=== PATIENT | female | born 1950 | race Caucasian/White ===

== ENCOUNTER 2019-09-23 00:36 | Day surgery (SDC) | payer MEDICARE, SELFPAY ==
[2019-09-22 11:16] VITALS: BMI 17.8
--- NOTE | 2019-09-23 07:45 | P.HP_ITS ---
History of Present Illness History of Present Illness Consent: Risks, benefits, and alternatives have been discussed and questions answered. Patient agrees to proceed with procedure. Chief complaint: esophageal strictures Narrative: Amada Lemus is a 68 year old female with severe dysphagia. She has a chronic and recurrent esophageal stricture. Meds Home Medications and Allergies Home Medications Medication Instructions Recorded Confirmed Type aspirin [Aspirin Low Dose] 81 mg PO DAILY 09/22/19 09/22/19 History calcium carbonate [Calcium 500] 500 mg PO DAILY 09/22/19 09/22/19 History cyanocobalamin (vitamin B-12) 1,000 mcg PO DAILY 09/22/19 09/22/19 History [Vitamin B-12] ferrous sulfate [Iron (ferrous 325 mg PO DAILY 09/22/19 09/22/19 History sulfate)] lactobacillus combination no.4 3,000 mmu cells PO DAILY 09/22/19 09/22/19 History [Probiotic] multivitamin 1 cap PO DAILY 09/22/19 09/22/19 History omega 6-pek-eqg-fish oil [[place]-3] 1 cap PO DAILY 09/22/19 09/22/19 History rosuvastatin 20 mg PO DAILY 09/22/19 09/22/19 History Allergies Allergy/AdvReac Type Severity Reaction Status Date / Time Penicillins Allergy Intermediate hallucinati Verified 09/22/19 11:12 ons Exam Const: General: alert Orientation/consciousness: patient oriented x3 Resp: Auscultation: clear to auscultation bilaterally Cardio: Rhythm: regular rhythm GI: GI Palp: Yes Soft to palpation and No Tenderness to palpation present (GI) Neuro: General: patient oriented x3 Assessment and Plan Assessment and plan (1) Dysphagia: Code(s): R13.10 - Dysphagia, unspecified Status: Acute Assessment and Plan: EGD with possible biopsy or dilatation or cautery.
[2019-09-23 07:52] VITALS: BP 133/67; PULSE 85; RESP 16; TEMP 36.9; O2SAT 99; BMI 16.2
[2019-09-23] MEDS: LACTATED RINGERS 1,000 ML 150 ML IV CONT (08:08)
--- NOTE | 2019-09-23 08:10 | P.PNAN_ITS ---
Anes - Initial Pre Proc Eval Procedure: Operation Date: 09/23/19 08:30 Proposed Procedures p Esophagogastroduodenoscopy - Neftali Mackey MD Date/Time: 09/23/19 08:10 Surgeon: Neftali Mackey MD Pre Op Diagnosis: esophageal strictures Patient Data Age: 68 Gender: F Height: 5 ft 6 in Weight: 45.6 kg Last Vital Signs Temp 98.4 F 09/23/19 07:52 Pulse 85 09/23/19 07:52 Resp 16 09/23/19 07:52 BP 133/67 09/23/19 07:52 Pulse Ox 99 09/23/19 07:52 Allergies Allergy/AdvReac Type Severity Reaction Status Date / Time Penicillins Allergy Intermediate hallucinati Verified 09/23/19 07:49 ons Home Medications Medication Instructions Recorded Confirmed Type aspirin [Aspirin Low Dose] 81 mg PO DAILY 09/22/19 09/22/19 History calcium carbonate [Calcium 500] 500 mg PO DAILY 09/22/19 09/22/19 History cyanocobalamin (vitamin B-12) 1,000 mcg PO DAILY 09/22/19 09/22/19 History [Vitamin B-12] ferrous sulfate [Iron (ferrous 325 mg PO DAILY 09/22/19 09/22/19 History sulfate)] lactobacillus combination no.4 3,000 mmu cells PO DAILY 09/22/19 09/22/19 History [Probiotic] multivitamin 1 cap PO DAILY 09/22/19 09/22/19 History omega 7-huf-jmk-fish oil [[place]-3] 1 cap PO DAILY 09/22/19 09/22/19 History rosuvastatin 20 mg PO DAILY 09/22/19 09/22/19 History Patient hx anesthesia problems: none Family hx anesthesia problems: none [facility] Past Medical History Medical History (Updated 09/23/19 @ 08:10 by Vickey Rico MD) COPD (chronic obstructive pulmonary disease) Peripheral vascular disease Anes - Eval Final PreProcedure Day of Procedure 09/23/19 08:10 Patient weight: normal Heart: regular rate and rhythm Lungs: clear to auscultation Airway: Mallampati scale class II Neurological: alert and oriented Last oral intake: >/= 8 hours ASA classification: III Emergent: no Anesthetic plan: proceed Anesthesia type and monitoring: general GIVS and standard monitoring Informed Consent: The patient's anesthetic plan and its attendant risks and benefits were discussed with the patient/family/POA. Questions were solicited and answers provided to the satisfaction of the patient/family/POA.
[2019-09-23 08:27] VITALS: BP 105/54; PULSE 88; RESP 27; O2SAT 93
[2019-09-23 08:37] VITALS: BP 114/56; PULSE 86; RESP 18; O2SAT 94
[2019-09-23 08:47] VITALS: BP 126/68; PULSE 77; RESP 17; O2SAT 98
== END 2019-09-23 08:58 | disposition home or self-care (01) ==
PROVIDERS: PCP Internal Medicine; Visit Provider Internal Medicine Gastroenterology
PROC: 0DJ08ZZ Inspection of Upper Intestinal Tract, Via Natural or Artificial Opening Endoscopic (ICD-10-PCS; CPT 43235; principal; 2019-09-23 08:30)
DX: K22.2 Esophageal obstruction (principal); J44.9 Chronic obstructive pulmonary disease, unspecified; I49.3 Ventricular premature depolarization; Z79.82 Long term (current) use of aspirin
CPT/HCPCS: 43220; C1726; J2704; J7120

== ENCOUNTER 2021-04-27 01:58 | Day surgery (SDC) | payer MEDICARE, SELFPAY ==
[2021-04-17 15:37] VITALS: BMI 16.2
--- NOTE | 2021-04-26 20:15 | P.HP_ITS ---
History of Present Illness History of Present Illness Consent: Risks, benefits, and alternatives have been discussed and questions answered. Patient agrees to proceed with procedure. Chief complaint: esophageal stricture Narrative: Amada Lemus is a 70 year old female referred for treatment of an esophageal stricture . She has a high-grade severe chronic stricture in the proximal esophagus secondary to radiation that was done long ago. Review of Systems Review of Systems: All systems reviewed & are unremarkable except as noted in HPI and below PMFSH Past Medical History Medical History COPD (chronic obstructive pulmonary disease) Hyperlipidemia Peripheral vascular disease Surgical History Surgical History History of esophagogastroduodenoscopy (EGD) S/P femoral-popliteal bypass surgery Social History Social History Smoking packs per day: 0.5 Smoking cigarettes per day: 10.0 Years smoked: 50 Smoking pack-years: 25.00 Smoking status: Former smoker Tobacco type: cigarettes Alcohol intake: never Substance use: never Substance use type: does not use Living arrangements: alone Spiritual care concerns: No Meds Home Medications and Allergies Home Medications Medication Instructions Recorded Confirmed Type [place]-3 1 cap PO DAILY 09/22/19 04/27/21 History Probiotic 3,000 mmu cells PO DAILY 09/22/19 04/27/21 History aspirin [Aspirin Low Dose] 81 mg PO DAILY 09/22/19 04/27/21 History calcium carbonate [Calcium 500] 500 mg PO DAILY 09/22/19 04/27/21 History cyanocobalamin (vitamin B-12) 1,000 mcg PO DAILY 09/22/19 04/27/21 History [Vitamin B-12] ferrous sulfate [Iron (ferrous 325 mg PO DAILY 09/22/19 04/27/21 History sulfate)] multivitamin 1 cap PO DAILY 09/22/19 04/27/21 History rosuvastatin 20 mg PO DAILY 09/22/19 04/27/21 History Allergies Allergy/AdvReac Type Severity Reaction Status Date / Time Penicillins Allergy Intermediate hallucinati Verified 04/27/21 09:30 ons Exam Const: General: alert Orientation/consciousness: patient oriented x3 Resp: Auscultation: clear to auscultation bilaterally Cardio: Rhythm: regular rhythm GI: GI Palp: Yes Soft to palpation and No Tenderness to palpation present (GI) Neuro: General: patient oriented x3 Assessment and Plan Assessment and plan (1) Dysphagia: Code(s): R13.10 - Dysphagia, unspecified Status: Acute Assessment and Plan: EGD with possible biopsy or dilatation or cautery.
[2021-04-27 09:31] VITALS: BP 154/87; PULSE 90; RESP 18; TEMP 36.9; O2SAT 98; BMI 16.8
--- NOTE | 2021-04-27 09:36 | P.PNAN_ITS ---
Anes - Initial Pre Proc Eval Procedure: Operation Date: 04/27/21 12:30 Proposed Procedures p Esophagogastroduodenoscopy - Neftali Mackey MD Date/Time: 04/27/21 09:36 Surgeon: Neftali Mackey MD Pre Op Diagnosis: esophageal stricture Patient Data Age: 70 Gender: F Height: 1.68 m Weight: 47.3 kg Last Vital Signs Temp 36.9 C 04/27/21 09:31 Pulse 90 04/27/21 09:31 Resp 18 04/27/21 09:31 BP 154/87 H 04/27/21 09:31 Pulse Ox 98 04/27/21 09:31 Allergies Allergy/AdvReac Type Severity Reaction Status Date / Time Penicillins Allergy Intermediate hallucinati Verified 04/27/21 09:30 ons Home Medications Medication Instructions Recorded Confirmed Type [place]-3 1 cap PO DAILY 09/22/19 04/27/21 History Probiotic 3,000 mmu cells PO DAILY 09/22/19 04/27/21 History aspirin [Aspirin Low Dose] 81 mg PO DAILY 09/22/19 04/27/21 History calcium carbonate [Calcium 500] 500 mg PO DAILY 09/22/19 04/27/21 History cyanocobalamin (vitamin B-12) 1,000 mcg PO DAILY 09/22/19 04/27/21 History [Vitamin B-12] ferrous sulfate [Iron (ferrous 325 mg PO DAILY 09/22/19 04/27/21 History sulfate)] multivitamin 1 cap PO DAILY 09/22/19 04/27/21 History rosuvastatin 20 mg PO DAILY 09/22/19 04/27/21 History Patient hx anesthesia problems: none Family hx anesthesia problems: none Results Review: All pre-operative results and documents have been reviewed as part of the pre-operative evaluation. [facility] Past Medical History Medical History (Updated 04/27/21 @ 09:37 by Suleman Diez MD) COPD (chronic obstructive pulmonary disease) Hyperlipidemia Peripheral vascular disease Surgical History Surgical History (Updated 04/27/21 @ 09:38 by Suleman Diez MD) History of esophagogastroduodenoscopy (EGD) S/P femoral-popliteal bypass surgery Social History Social History Smoking packs per day: 0.5 Smoking cigarettes per day: 10.0 Years smoked: 50 Smoking pack-years: 25.00 Smoking status: Former smoker Tobacco type: cigarettes Alcohol intake: never Substance use: never Substance use type: does not use Living arrangements: alone Spiritual care concerns: No Anes - Eval Final PreProcedure Day of Procedure 04/27/21 09:36 Patient weight: thin Heart: regular rate and rhythm Lungs: clear to auscultation Airway: Mallampati scale class II Neurological: alert and oriented Last oral intake: >/= 8 hours ASA classification: III Emergent: no Anesthetic plan: proceed Anesthesia type and monitoring: general GIVS and standard monitoring Results Review: All pre-operative results and documents have been reviewed as part of the pre-operative evaluation. Informed Consent: The patient's anesthetic plan and its attendant risks and benefits were discussed with the patient/family/POA. Questions were solicited and answers provided to the satisfaction of the patient/family/POA.
[2021-04-27] MEDS: LACTATED RINGERS 1,000 ML 150 ML IV CONT (09:39)
[2021-04-27 10:04] VITALS: BP 144/87; PULSE 58; RESP 15; O2SAT 97
[2021-04-27 10:14] VITALS: BP 146/88; PULSE 57; RESP 16; O2SAT 98
[2021-04-27 10:24] VITALS: BP 148/86; PULSE 53; RESP 19; O2SAT 99
== END 2021-04-27 10:38 | disposition home or self-care (01) ==
PROVIDERS: PCP Internal Medicine; Visit Provider Internal Medicine Gastroenterology
PROC: 0DJ08ZZ Inspection of Upper Intestinal Tract, Via Natural or Artificial Opening Endoscopic (ICD-10-PCS; CPT 43235; principal; 2021-04-27 12:30)
DX: R13.10 Dysphagia, unspecified (principal); K22.2 Esophageal obstruction; K22.5 Diverticulum of esophagus, acquired; J44.9 Chronic obstructive pulmonary disease, unspecified; I73.9 Peripheral vascular disease, unspecified; E78.5 Hyperlipidemia, unspecified; Z92.3 Personal history of irradiation
CPT/HCPCS: 43220; C1726; J2001; J2704; J7120

== ENCOUNTER 2022-03-07 01:06 | Day surgery (SDC) | payer MEDICARE, SELFPAY ==
[2022-02-27 13:04] VITALS: BMI 16.3
--- NOTE | 2022-03-07 06:40 | PM.HPGS ---
History of Present Illness History of Present Illness Consent: Risks, benefits, and alternatives have been discussed and questions answered. Patient agrees to proceed with procedure. Chief complaint: dysphagia Narrative: Amada Lemus is a 71 year old female With severe dysphagia. She has known have a long stricture in the proximal esophagus that is secondary to radiation therapy many years ago. The last treatment she had was 11 months ago. At that time we were only able to dilate up to 9 mm. We advised her to come back in a couple of months for for further treatment but she was unable to do that. Review of Systems Review of Systems: All systems reviewed & are unremarkable except as noted in HPI and below PMFSH Past Medical History Medical History COPD (chronic obstructive pulmonary disease) Hyperlipidemia Peripheral vascular disease Surgical History Surgical History History of esophagogastroduodenoscopy (EGD) S/P femoral-popliteal bypass surgery Social History Social History Smoking packs per day: 1 Smoking cigarettes per day: 20.0 Years smoked: 40 Smoking pack-years: 40.00 Smoking status: Former smoker Tobacco type: cigarettes Alcohol intake: never Substance use: never Substance use type: does not use Living arrangements: alone Spiritual care concerns: No Meds Home Medications and Allergies Home Medications Medication Instructions Recorded Confirmed Type aspirin 81 mg tablet,delayed 81 mg PO DAILY 09/22/19 03/07/22 History release ([place]ory Low Dose Aspirin) calcium carbonate 500 mg calcium 500 mg PO DAILY 09/22/19 03/07/22 History (1,250 mg) chewable tablet (Calcium 500) cyanocobalamin (vitamin B-12) 1,000 mcg PO DAILY 09/22/19 03/07/22 History 1,000 mcg tablet,extended release (Vitamin B-12 ER) ferrous sulfate 325 mg (65 mg 325 mg PO DAILY 09/22/19 03/07/22 History iron) tablet (Iron (ferrous sulfate)) lactobacillus combination no.4 3 3,000 mmu cells PO DAILY 09/22/19 03/07/22 History billion cell capsule (Probiotic) omega 3 350 mg-dha 235 mg-epa 90 1 cap PO DAILY 09/22/19 03/07/22 History mg-fish oil 597 mg capsule,delay rel ([place]-3) rosuvastatin 20 mg tablet 20 mg PO DAILY 09/22/19 03/07/22 History Adult Multivitamin Gummies 2 gummy PO DAILY 02/27/22 03/07/22 History albuterol sulfate 90 mcg/actuation 2 puff inhalation DAILY 02/27/22 03/07/22 History aerosol inhaler Allergies Allergy/AdvReac Type Severity Reaction Status Date / Time Penicillins Allergy Intermediate hallucinati Verified 03/07/22 10:24 ons Exam Const: General: alert Orientation/consciousness: patient oriented x3 Resp: Auscultation: clear to auscultation bilaterally Cardio: Rhythm: regular rhythm GI: GI Palp: Yes Soft to palpation and No Tenderness to palpation present (GI) Neuro: General: patient oriented x3 Assessment and Plan Assessment and plan (1) Dysphagia: Code(s): R13.10 - Dysphagia, unspecified Status: Acute Assessment and Plan: EGD with possible biopsy or dilatation or cautery.
[2022-03-07 10:25] VITALS: BP 123/80; PULSE 93; RESP 16; TEMP 36.1; O2SAT 98
[2022-03-07] MEDS: LACTATED RINGERS 1,000 ML 150 ML IV CONT (10:27)
--- NOTE | 2022-03-07 11:07 | WPDANESEPPF ---
Anes - Initial Pre Proc Eval Procedure: Operation Date: 03/07/22 11:30 Proposed Procedures p Esophagogastroduodenoscopy - Neftali Mackey MD Date/Time: 03/07/22 11:07 Surgeon: Neftali Mackey MD Pre Op Diagnosis: dysphagia Patient Data Age: 71 Gender: F Height: 1.68 m Weight: 43.7 kg Last Vital Signs Temp 97 F L 03/07/22 10:25 Pulse 93 03/07/22 10:25 Resp 16 03/07/22 10:25 BP 123/80 03/07/22 10:25 Pulse Ox 98 03/07/22 10:25 O2 Del Method Room Air 03/07/22 10:25 Allergies Allergy/AdvReac Type Severity Reaction Status Date / Time Penicillins Allergy Intermediate hallucinati Verified 03/07/22 10:24 ons Home Medications Medication Instructions Recorded Confirmed Type aspirin 81 mg tablet,delayed 81 mg PO DAILY 09/22/19 03/07/22 History release ([place]ory Low Dose Aspirin) calcium carbonate 500 mg calcium 500 mg PO DAILY 09/22/19 03/07/22 History (1,250 mg) chewable tablet (Calcium 500) cyanocobalamin (vitamin B-12) 1,000 mcg PO DAILY 09/22/19 03/07/22 History 1,000 mcg tablet,extended release (Vitamin B-12 ER) ferrous sulfate 325 mg (65 mg 325 mg PO DAILY 09/22/19 03/07/22 History iron) tablet (Iron (ferrous sulfate)) lactobacillus combination no.4 3 3,000 mmu cells PO DAILY 09/22/19 03/07/22 History billion cell capsule (Probiotic) omega 3 350 mg-dha 235 mg-epa 90 1 cap PO DAILY 09/22/19 03/07/22 History mg-fish oil 597 mg capsule,delay rel ([place]-3) rosuvastatin 20 mg tablet 20 mg PO DAILY 09/22/19 03/07/22 History Adult Multivitamin Gummies 2 gummy PO DAILY 02/27/22 03/07/22 History albuterol sulfate 90 mcg/actuation 2 puff inhalation DAILY 02/27/22 03/07/22 History aerosol inhaler Patient hx anesthesia problems: none Family hx anesthesia problems: none Results Review: All pre-operative results and documents have been reviewed as part of the pre-operative evaluation. PMFSH Past Medical History Medical History COPD (chronic obstructive pulmonary disease) Hyperlipidemia Peripheral vascular disease Surgical History Surgical History History of esophagogastroduodenoscopy (EGD) S/P femoral-popliteal bypass surgery Social History Social History Smoking packs per day: 1 Smoking cigarettes per day: 20.0 Years smoked: 40 Smoking pack-years: 40.00 Smoking status: Former smoker Tobacco type: cigarettes Alcohol intake: never Substance use: never Substance use type: does not use Living arrangements: alone Spiritual care concerns: No Anes - Eval Final PreProcedure Day of Procedure 03/07/22 11:07 Patient weight: thin Heart: regular rate and rhythm Lungs: clear to auscultation Airway: Mallampati scale class II Neurological: alert and oriented Last oral intake: >/= 8 hours ASA classification: III Emergent: no Anesthetic plan: proceed Anesthesia type and monitoring: general GIVS and standard monitoring Results Review: All pre-operative results and documents have been reviewed as part of the pre-operative evaluation. Informed Consent: The patient's anesthetic plan and its attendant risks and benefits were discussed with the patient/family/POA. Questions were solicited and answers provided to the satisfaction of the patient/family/POA.
[2022-03-07 11:39] VITALS: BP 109/84; PULSE 89; RESP 25; O2SAT 98
[2022-03-07 11:49] VITALS: BP 159/85; PULSE 89; RESP 19; O2SAT 99
[2022-03-07 11:59] VITALS: BP 158/87; PULSE 75; RESP 20; O2SAT 99
== END 2022-03-07 12:07 | disposition home or self-care (01) ==
PROVIDERS: PCP Internal Medicine; Visit Provider Internal Medicine Gastroenterology
PROC: 0DJ08ZZ Inspection of Upper Intestinal Tract, Via Natural or Artificial Opening Endoscopic (ICD-10-PCS; CPT 43235; principal; 2022-03-07 11:30)
DX: K22.2 Esophageal obstruction (principal); J44.9 Chronic obstructive pulmonary disease, unspecified; E78.2 Mixed hyperlipidemia; I73.9 Peripheral vascular disease, unspecified; Z87.891 Personal history of nicotine dependence; Z79.82 Long term (current) use of aspirin; Z79.51 Long term (current) use of inhaled steroids
CPT/HCPCS: 43450; 43235; J2704; J7120

== ENCOUNTER 2022-06-12 19:28 | Inpatient (IN) | payer MEDICARE, SELFPAY ==
[2022-06-12] VITALS (15 sets, daily range): BP systolic 131–181; BP diastolic 64–118; PULSE 100–131; RESP 15–30; TEMP 37.1–38.4; O2SAT 88–98; BMI 16.3
--- NOTE | ~2022-06-12 | XR_ITS ---
EXAMINATION: XR chest 2V DATE: 06/12/2022 20:10 INDICATION: COPD presenting with shortness of breath and labored breathing TECHNIQUE: PA and lateral views of the chest were obtained. COMPARISON: None FINDINGS: Hyperexpansion of lungs with increased. Sternal clear space consistent with provided history of COPD. Airspace opacities at the basilar right lower lobe consistent with pneumonia. No other airspace opac ities, pulmonary edema, pleural effusion or pneumothorax. The cardiomediastinal silhouette is normal. Mild thoracic spondylosis. IMPRESSION: 1. COPD with right lower lobe pneumonia. Reviewed, dictated and finalized at location A. 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
--- NOTE | 2022-06-12 19:37 | ECG_ITS ---
Measurements Intervals [place] Rate: 119 P: 96 [place]: 183 QRS: 90 QRSD: 98 T: 97 QT: 412 QTc: 581 Interpretive Statements SINUS TACHYCARDIA POSSIBLE RIGHT ATRIAL ENLARGEMENT POSSIBLE LEFT ATRIAL ENLARGEMENT LATERAL MYOCARDIAL INFARCTION, OF INDETERMINATE AGE ANTEROLATERAL ST ABNORMALITY CONSIDER ISCHEMIA ABNORMAL ECG NO PREVIOUS ECG AVAILABLE FOR COMPARISON Electronically Signed On 06-13-2022 15:06:27 MANAGER TR[employer]IT by Armand Pa M.D.
[2022-06-12 19:59] LABS: Basophils Absolute Auto 0.1 K/mm3 (0.0-0.1); Basophils Percent Auto 0.3 % (0.2-1.2); Hematocrit 48.3 % (37.0-47.0); Hemoglobin 15.9 g/dL (12.0-15.0); Immature Granulocyte Absolute 0.11 K/mm3 (0.00-0.031); Immature Granulocyte Percent A 0.5 % (0-0.5); Lymphocytes Absolute Auto 1.21 K/mm3 (0.9-3.2); Mean Corpuscular HGB Conc 32.9 g/dl (32-36); Mean Corpuscular Hemoglobin 28.5 pg (26-34); Mean Corpuscular Volume 86.7 fl (80-100); Mean Platelet Volume 10.5 fl (7.4-10.4); Monocytes Absolute Auto 1.9 K/mm3 (0.1-0.6); Neutrophils Absolute Auto 20.7 K/mm3 (1.3-6.7); Neutrophils Percent Auto 86.2 % (45.5-73.1); Platelet Count Result 345 k/mm3 (150-375); Red Blood Count 5.57 M/mm3 (4.2-5.4); Red Cell Distribution Width 14.6 % (11.5-14.5)
[2022-06-12 20:16] LABS: Alanine Aminotransferase 24 U/L (6-35); Albumin Level 4.5 g/dL (3.5-5.1); Alkaline Phosphatase 101 U/L (38-126); Anion Gap 8 mmol/L (8-16); Aspartate Amino Transferase 34 U/L (14-36); Bilirubin,Total 0.9 mg/dL (0.2-1.3); Blood Urea Nitrogen 10 mg/dL (7-17); Calcium 9.2 mg/dL (8.4-10.2); Carbon Dioxide 26 mmol/L (22-30); Chloride 96 mmol/L (98-107); Estimated CRCL calculation 60 ml/min; Estimated Glomerular Filt Rate > 60; Glucose 111 mg/dL (65-110); Potassium 4.6 mmol/L (3.4-5.0); Sodium 130 mmol/L (137-145)
--- NOTE | 2022-06-12 20:43 | ED.SOB ---
HPI - SOB/Dyspnea General Chief Complaint: Shortness of Breath/Dyspnea Stated Complaint: dyspnea Time Seen by Provider: 06/12/22 19:53 History of Present Illness HPI Narrative: Patient is a 71-year-old female with a history of COPD, hyperlipidemia, PVD presenting with shortness of breath. Patient states that she has been short of breath for the last several days. States that she recently started on Breztri approximately 1 to 2 weeks ago. States that her cough has improved since that time but she has felt increasingly short of breath. States that she used her inhaler multiple times today without improvement. She denies chest pain, palpitations, lightheadedness. No fevers, abdominal pain, vomiting, diarrhea, leg swelling. Related Data Home Medications Medication Instructions Recorded Confirmed aspirin 81 mg tablet,delayed 81 mg PO DAILY 09/22/19 06/12/22 release (Cory Low Dose Aspirin) calcium carbonate 500 mg calcium 500 mg PO DAILY 09/22/19 06/12/22 (1,250 mg) chewable tablet (Calcium 500) ferrous sulfate 325 mg (65 mg 325 mg PO DAILY 09/22/19 06/12/22 iron) tablet (Iron (ferrous sulfate)) lactobacillus combination no.4 3 3,000 mmu cells PO DAILY 09/22/19 06/12/22 billion cell capsule (Probiotic) rosuvastatin 20 mg tablet 20 mg PO DAILY 09/22/19 06/12/22 Adult Multivitamin Gummies 2 gummy PO DAILY 02/27/22 06/12/22 albuterol sulfate 90 mcg/actuation 2 puff inhalation Q4H PRN 02/27/22 06/12/22 aerosol inhaler Shortness Of Breath budesonide 160 mcg-glycopyr 9 2 inh inhalation BID 06/13/22 06/13/22 mcg-formot 4.8 mcg/actuation HFA inhaler (Breztri Aerosphere) Allergies Allergy/AdvReac Type Severity Reaction Status Date / Time Penicillins Allergy Intermediate hallucinati Verified 06/12/22 19:55 ons Review of Systems Review of Systems: All systems reviewed & are unremarkable except as noted in HPI and below PMFSH Past Medical History Medical History (Updated 06/13/22 @ 23:08 by Tory Greenberg MD) COPD (chronic obstructive pulmonary disease) Hyperlipidemia Peripheral vascular disease Surgical History Surgical History History of esophagogastroduodenoscopy (EGD) S/P femoral-popliteal bypass surgery Family History Family History (Updated 06/12/22 @ 23:24 by Kimberley López RN) Father Emphysema of lung Chronic obstructive pulmonary disease Sibling Lung cancer Social History Social History Smoking packs per day: 1 Smoking cigarettes per day: 20.0 Years smoked: 40 Smoking pack-years: 40.00 Smoking status: Former smoker Tobacco type: cigarettes Smoking end date: 02/16/14 Alcohol intake: never Substance use: never Substance use type: does not use Lack of Transportation: No Lack of Food: Never True Current Housing: I Have Housing Concerned About Future Housing: No Difficulty Paying Gas/Electric Bills: No Difficulty Paying for Meds: No Currently Unemployed: No Education: High School Diploma/GED Difficulty w/ Childcare or Family Care: No Living arrangements: alone Spiritual care concerns: No Exam Narrative: GENERAL: Thin, nontoxic, pleasant and cooperative HEAD: Normocephalic, atraumatic. EYES: PERRLA and EOMI. ENT: Nares clear, no rhinorrhea or epistaxis. Mucous membranes moist. NECK: Supple. CHEST: Diminished breath sounds bilaterally, no wheezing HEART: Regular rate and rhythm. Normal peripheral pulses. ABDOMEN: Soft, nontender, nondistended, normal active bowel sounds. EXTREMITIES: Normal range of motion. No edema. SKIN: Warm, dry, no rash. NEURO: No focal deficits. Alert and oriented x3. PSYCH: Normal mood and affect. Course Vital Signs Vital signs: Vital Signs Temperature 99.6 F 06/12/22 19:50 Pulse Rate 124 H 06/12/22 19:50 Respiratory Rate 30 H 06/12/22 19:50 Blood Pressure 139/11
[2022-06-12] MEDS: ALBUTEROL SULFATE NEB 2.5 MG/3 ML INH 10 MG INHALATION (21:01)
[2022-06-12] MEDS: IPRATROPIUM BR 0.02% INH SOLN 0.5 MG/2.5 ML VIAL INHALATION (21:01)
[2022-06-12] MEDS: methylPREDNISolone SOD SUCC 125 MG VIAL IV PUSH (21:24)
[2022-06-12] MEDS: SODIUM CHLORIDE 0.9% IV 1,000 ML 999 ML IV CONT (21:25)
--- NOTE | 2022-06-12 21:49 | PM.IMHP ---
H&P: HPI History of Present Illness Date/Time: 06/12/22 21:49 Chief Complaint: Shortness of breath Narrative: This is a 71-year-old female with past medical history significant for COPD/emphysema, former smoker, 1 pack a day for over 30 years, patient presents to the emergency room due to worsening shortness of breath for the last 3 days or so, cough productive of sputum which is clear phlegm, denies any fevers, rigors, chills has been feeling fatigue and with low energy and run down . Preliminary workup was significant for a chest x-ray was reported as: FINDINGS: Hyperexpansion of lungs with increased. Sternal clear space consistent with provided history of COPD. Airspace opacities at the basilar right lower lobe consistent with pneumonia. No other airspace opacities, pulmonary edema, pleural effusion or pneumothorax. The cardiomediastinal silhouette is normal. Mild thoracic spondylosis. IMPRESSION: 1. COPD with right lower lobe pneumonia. Review of Systems Review of Systems: Shortness of breath, cough productive of sputum, fatigue, lack of energy, poor appetite. Constitutional: Constitutional: Denies chills, Reports fatigue, Denies fever(s), Reports lethargy, Denies malaise, Reports poor appetite and Reports weakness Eyes: Eyes: Denies change in vision ENT: Denies dysphagia and Denies odynophagia Cardiovascular: Cardiovascular: Denies chest pain, Denies syncope, Denies leg edema, Denies lightheadedness and Denies palpitations Respiratory: Respiratory: Reports cough, Reports excessive phlegm production, Reports dyspnea and Reports wheezing Gastrointestinal: Gastrointestinal: Denies abdominal pain, Denies dyspepsia, Denies diarrhea, Denies nausea and Denies vomiting Genitourinary: Genitourinary: Denies dysuria Musculoskeletal: Musculoskeletal: Denies back pain, Denies myalgias, Denies joint swelling and Reports muscle weakness Integumentary/Breasts: Skin/Breast: Denies rash Neurologic: Denies vertigo, Denies dizziness, Denies focal weakness and Denies Sensory deficit (Neuro) Psychiatric: Psychiatric: Reports no additional psychiatric complaints and Reports as per HPI Endocrine: Endocrine: Denies cold intolerance, Denies flushing, Denies heat intolerance, Denies polyphagia, Denies polydipsia and Denies palpitations Hematologic/Lymphatic: Hematologic/Lymphatic: Reports no additional hematologic/lymphatic complaints and Reports as per HPI Allergic/Immunologic: Allergic/Immunologic: Reports no additional allergic/immunologic complaints and Reports as per HPI [facility] Past Medical History Medical History (Updated 06/13/22 @ 02:14 by Shana Lopez MD) COPD (chronic obstructive pulmonary disease) Hyperlipidemia Peripheral vascular disease Surgical History Surgical History History of esophagogastroduodenoscopy (EGD) S/P femoral-popliteal bypass surgery Family History Family History (Updated 06/12/22 @ 23:24 by Kimberley López RN) Father Emphysema of lung Chronic obstructive pulmonary disease Sibling Lung cancer Social History Social History Smoking packs per day: 1 Smoking cigarettes per day: 20.0 Years smoked: 40 Smoking pack-years: 40.00 Smoking status: Former smoker Tobacco type: cigarettes Smoking end date: 02/16/14 Alcohol intake: never Substance use: never Substance use type: does not use Lack of Transportation: No Lack of Food: Never True Current Housing: I Have Housing Concerned About Future Housing: No Difficulty Paying Gas/Electric Bills: No Difficulty Paying for Meds: No Currently Unemployed: No Education: High School Diploma/GED Difficulty w/ Childcare or Family Care: No Living arrangements: alone Spiritual care concerns: No Meds Home Medications and Allergies Home Medications Medication Instructions Recorded Confirmed T
[2022-06-12 22:15] LABS: Influenza A QL RT-PCR Negative (Negative); Influenza B QL RT-PCR Negative (Negative); RSV RNA, RT-PCR Negative (Negative); SARS-CoV-2 RNA PCR Negative
--- NOTE | 2022-06-12 23:22 | ADMGEN ---
This patient, Amada Lemus, was admitted to [facility] Surg Room 307-02. Patient/family oriented to hospital policies and general routines including ID bracelet, bed and alarms, visiting hours, pain management, procedures, bathroom and other care routines, personal items, smoking policy, room service/diet, and visiting hours. Information on how to activate the Rapid Response Team has been discussed. Patient/Family are encouraged to report perceived risks to care and to ask questions if they do not understand what they are told or what they should do.
[2022-06-13] VITALS (21 sets, daily range): BP systolic 115–141; BP diastolic 52–69; PULSE 75–100; RESP 14–20; TEMP 36.1–37.6; O2SAT 93–97
[2022-06-13] MEDS: IPRATROPIUM BR 0.02% INH SOLN 0.5 MG/2.5 ML VIAL INHALATION ×5 (04:08→19:53)
[2022-06-13] MEDS: ALBUTEROL SULFATE NEB 2.5 MG/3 ML INH INHALATION ×5 (04:09→19:53)
[2022-06-13] MEDS: methylPREDNISolone SOD SUCC 125 MG VIAL 60 MG IV PUSH ×2 (05:22→11:17)
[2022-06-13] MEDS: ENOXAPARIN 40 MG/0.4 ML SYRINGE SUB-Q (08:32)
[2022-06-13] MEDS: FERROUS SULFATE 324 MG TABLET PO (08:32)
[2022-06-13] MEDS: CALCIUM CARBONATE (OSCAL) 500 MG TABLET PO (08:32)
[2022-06-13] MEDS: ACIDOPHILUS/BULGARICUS CHEWABLE TABLET 2 TABLET BY MOUTH (08:32)
--- NOTE | 2022-06-13 08:44 | PM.IMPN ---
Progress Note: A&P Assessment and Plan (1) RLL pneumonia: Code(s): J18.9 - Pneumonia, unspecified organism Status: Acute Assessment and Plan: Patient presented with c/o SOB x3 days and chest x-ray shows RLL infiltrates. continue with IV Rocephin and Zithromax in the ED, first dose on 06/12/22. Blood cultures pending. Wean O2 to keep sats>90% Supportive care Continue to monitor (2) COPD (chronic obstructive pulmonary disease): Code(s): J44.9 - Chronic obstructive pulmonary disease, unspecified Status: Acute Assessment and Plan: Acute exacerbation of COPD. No wheezing noted on exam. Duonebs Q4 hours scheduled. Add budesonide neb Q12 hour Stop solu-medrol and monitor off systemic steroids Discussed patient case and plan of care with Pulmonology who is is agreement. (3) Former tobacco use: Code(s): Z87.891 - Personal history of nicotine dependence Status: Chronic Assessment and Plan: Former smoker with 40 pack year history, quit in 2013. (4) Peripheral vascular disease: Code(s): I73.9 - Peripheral vascular disease, unspecified Status: Chronic Assessment and Plan: chronic, continue aspirin and Crestor. Plan CODE STATUS: FULL CODE Disposition: home when respiratory status improved. Time Spent With Patient Time with patient: 25 - 35 minutes Subjective Date/time seen: 06/13/22 08:44 Interval history: Patient is a 71 yo female with COPD who presented to the ED for evaluation of worsening shortness of breath for 3 days prior to admission. In the ED, she was tachycardic HR 124, RR 30. and requiring 2L NC. Chest x-ray suggested RLL pneumonia and WBC 24 on admission. She was admitted for management of community acquired pneumonia. She reports her breathing seems improved now. She denies SOB, chest pain, dizziness, fever, chills, rigors, or palpitations. She has a cough with clear sputum. Review of Systems Review of Systems: All systems reviewed & are unremarkable except as noted in HPI and below Exam Narrative: General: No acute distress.? Thin older adult female sitting up in bed. O2 2L NC spO2 95% Mental Status/Psych: Awake, alert and oriented x3 with clear speech. Neutral mood and affect. Pleasant and cooperative. Skin: fair, warm, dry and intact without rashes or lesions. Fair turgor.? HEENT: Normocephalic. Sclera is non-icteric. EOM intact. PERRL. Grossly normal hearing. Oral mucosa pink and moist. Oropharynx within normal limits. Neck: Supple. Trachea midline. No JVD. Heart: S1 and S2 regular rate and rhythm. No murmurs, gallops, or rubs auscultated. Chest: Respirations even and unlabored at rest. Lung sounds diminished but clear in all snow. No wheezing, rhonchi, or rales appreciated. Abdomen: Soft, flat and non-tender to palpation.? Bowel sounds present in all 4 quadrants. Extremities:? Grossly normal ROM all extremities. No edema, erythema or calf tenderness. Radial and dorsalis pedis pulses +2 bilaterally. Neurological: No focal deficits. Cranial nerves 2-12 grossly intact.?No focal deficits. Objective Data Vital Signs Vital Signs: Vital Signs - 24 hr 06/12/22 19:50 06/12/22 19:56 06/12/22 20:00 Temperature 99.6 F Pulse Rate 124 H 118 H Respiratory Rate 30 H Blood Pressure 139/118 H Pulse Oximetry 95 96 Oxygen Delivery Room Air Room Air Oxygen Flow Rate 06/12/22 21:02 06/12/22 19:55 06/12/22 20:00 Temperature Pulse Rate 100 117 H 116 H Respiratory Rate 20 18 19 Blood Pressure 172/81 H 181/103 H Pulse Oximetry 95 95 Oxygen Delivery Oxygen Flow Rate 06/12/22 20:01 06/12/22 22:34 06/12/22 21:30 Temperature 101.2 F H Pulse Rate 115 H 124 H 128 H Respiratory Rate 15 20 21 H Blood Pressure 149/72 H Pulse Oximetry 94 88 L 98 Oxygen Delivery Oxygen Flow Rate 06/12/22 21:31 06/12/22 21:45 06/12/22 21:49 Temperature Pulse Rate 126 H 131 H 131 H Respiratory Rate 17
[2022-06-13] MEDS: BUDESONIDE RESPULE NEB 0.5 MG/2 ML AMP INHALATION (19:53)
[2022-06-13] MEDS: cefTRIAXone 2 GM in SODIUM CHLORIDE 0.9% IV 100 ML 200 ML IVPB (22:26)
[2022-06-14] VITALS (17 sets, daily range): BP systolic 125–142; BP diastolic 61–76; PULSE 75–108; RESP 14–20; TEMP 36.4–37.4; O2SAT 91–95
[2022-06-14] MEDS: ALBUTEROL SULFATE NEB 2.5 MG/3 ML INH INHALATION ×6 (00:11→19:59)
[2022-06-14] MEDS: IPRATROPIUM BR 0.02% INH SOLN 0.5 MG/2.5 ML VIAL INHALATION ×6 (00:11→19:58)
[2022-06-14 06:16] LABS: Basophils Percent Auto 0.2 % (0.2-1.2); Hematocrit 41.6 % (37.0-47.0); Hemoglobin 13.6 g/dL (12.0-15.0); Immature Granulocyte Absolute 0.18 K/mm3 (0.00-0.031); Immature Granulocyte Percent A 0.7 % (0-0.5); Lymphocytes Absolute Auto 1.71 K/mm3 (0.9-3.2); Lymphocytes Percent Auto 6.8 % (18.3-44.2); Mean Corpuscular HGB Conc 32.7 g/dl (32-36); Mean Corpuscular Hemoglobin 28.6 pg (26-34); Mean Corpuscular Volume 87.4 fl (80-100); Mean Platelet Volume 10.6 fl (7.4-10.4); Monocytes Absolute Auto 1.9 K/mm3 (0.1-0.6); Monocytes Percent Auto 7.4 % (2.6-8.5); Neutrophils Absolute Auto 21.4 K/mm3 (1.3-6.7); Neutrophils Percent Auto 84.9 % (45.5-73.1); Platelet Count Result 269 k/mm3 (150-375); Red Blood Count 4.76 M/mm3 (4.2-5.4); Red Cell Distribution Width 14.8 % (11.5-14.5); White Blood Count 25.2 K/mm3 (4.5-10.0)
[2022-06-14 06:40] LABS: Alanine Aminotransferase 20 U/L (6-35); Albumin Level 3.4 g/dL (3.5-5.1); Alkaline Phosphatase 79 U/L (38-126); Anion Gap 3 mmol/L (8-16); Aspartate Amino Transferase 34 U/L (14-36); Bilirubin,Total 0.5 mg/dL (0.2-1.3); Blood Urea Nitrogen 12 mg/dL (7-17); Calcium 8.8 mg/dL (8.4-10.2); Carbon Dioxide 27 mmol/L (22-30); Chloride 104 mmol/L (98-107); Estimated CRCL calculation 61 ml/min; Estimated Glomerular Filt Rate > 60; Glucose 101 mg/dL (65-110); Potassium 3.9 mmol/L (3.4-5.0); Sodium 134 mmol/L (137-145)
[2022-06-14] MEDS: BUDESONIDE RESPULE NEB 0.5 MG/2 ML AMP INHALATION ×2 (07:00→19:59)
[2022-06-14] MEDS: FERROUS SULFATE 324 MG TABLET PO (08:41)
[2022-06-14] MEDS: ENOXAPARIN 40 MG/0.4 ML SYRINGE SUB-Q (08:41)
[2022-06-14] MEDS: CALCIUM CARBONATE (OSCAL) 500 MG TABLET PO (08:41)
[2022-06-14] MEDS: ACIDOPHILUS/BULGARICUS CHEWABLE TABLET 2 TABLET BY MOUTH (08:41)
--- NOTE | 2022-06-14 10:47 | PM.IMPN ---
Progress Note: A&P Assessment and Plan (1) RLL pneumonia: Code(s): J18.9 - Pneumonia, unspecified organism Status: Acute Assessment and Plan: Patient presented with c/o SOB x3 days and chest x-ray shows RLL infiltrates. continue with IV Rocephin and Zithromax in the ED, first dose on 06/12/22. WBC 25 (was 24 on admission), however she was treated with steroids until yesterday afternoon. Will continue IV antibiotics for today and transition to oral tomorrow if improved. Blood cultures negative to date. Wean O2 to keep sats>90% - stable. Supportive care Continue to monitor Add Coronet therapy (2) COPD (chronic obstructive pulmonary disease): Qualifiers: COPD type: emphysema Emphysema type: unspecified Qualified Code(s): J43.9 - Emphysema, unspecified Code(s): J44.9 - Chronic obstructive pulmonary disease, unspecified Status: Acute Assessment and Plan: Acute exacerbation of COPD. Duonebs Q4 hours scheduled. Continue budesonide neb Q12 hour 06/13 stopped solu-medrol and monitor off systemic steroids. Continue to hold steroids and no wheezing was appreciated on exam Discussed patient case and plan of care with Pulmonology who is is agreement on 06/13/22. Add mucinex BID PO (3) Former tobacco use: Code(s): Z87.891 - Personal history of nicotine dependence Status: Chronic Assessment and Plan: Former smoker with 40 pack year history, quit in 2013. (4) Peripheral vascular disease: Code(s): I73.9 - Peripheral vascular disease, unspecified Status: Chronic Assessment and Plan: chronic, continue aspirin and Crestor. Plan CODE STATUS: FULL CODE Disposition: home when respiratory status improved. Possible discharge in 1-2 days. Time Spent With Patient Time with patient: 15 - 25 minutes Subjective Date/time seen: 06/14/22 10:47 Interval history: Patient is a 71 yo female with COPD who presented to the ED for evaluation of worsening shortness of breath for 3 days prior to admission. In the ED, she was tachycardic HR 124, RR 30. and requiring 2L NC. Chest x-ray suggested RLL pneumonia and WBC 24 on admission. She was admitted for management of community acquired pneumonia. Patient found sitting up in the bed with pursed lip breathing. She reports shortness of breath following coughing fits. She states she is able to feel and cough up mucous, but cannot fully expectorate it. She had chills last night, but these resolved with more blankets and no episodes of rigors or diaphoresis. SpO2 94-95% on room air. Review of Systems Review of Systems: All systems reviewed & are unremarkable except as noted in HPI and below Exam Narrative: General: mild distress following coughing episode.? Thin older adult female sitting up in bed. spO2 Mental Status/Psych: Awake, alert and oriented x3 with clear speech. Neutral mood and affect. Pleasant and cooperative. Skin: fair, warm, dry and intact without rashes or lesions. Fair turgor.? HEENT: Normocephalic. Sclera is non-icteric. pupils equal and round. Oral mucosa pink and moist. Oropharynx within normal limits. Neck: No JVD. Heart: S1 and S2 regular rate and rhythm. No murmurs, gallops, or rubs auscultated. Chest: Pursed lip breathing, moist cough, Lung sounds diminished but clear in all snow. No wheezing, rhonchi, or rales appreciated. Abdomen: Soft, flat and non-tender to palpation.? Bowel sounds present in all 4 quadrants. Extremities:? Grossly normal ROM all extremities. No edema, erythema or calf tenderness. Radial and dorsalis pedis pulses +2 bilaterally. Neurological: No focal deficits. Cranial nerves 2-12 grossly intact.?No focal deficits. Objective Data Vital Signs Vital Signs: Vital Signs - 24 hr 06/13/22 11:14 06/13/22 11:29 06/13/22 12:00 Temperature Pulse Rate 91 86 93 Respiratory Rate 20 20 Blood Pressure Pulse Oximetry Oxygen Delivery Oxygen Flow R
[2022-06-14] MEDS: MELATONIN 5 MG TABLET PO (20:41)
[2022-06-14] MEDS: cefTRIAXone 2 GM in SODIUM CHLORIDE 0.9% IV 100 ML 200 ML IVPB (21:55)
[2022-06-15] VITALS (14 sets, daily range): BP systolic 118–153; BP diastolic 69–79; PULSE 89–110; RESP 18–20; TEMP 36.7–37.3; O2SAT 92–99
[2022-06-15] MEDS: ALBUTEROL SULFATE NEB 2.5 MG/3 ML INH INHALATION ×3 (00:38→20:06)
[2022-06-15] MEDS: IPRATROPIUM BR 0.02% INH SOLN 0.5 MG/2.5 ML VIAL INHALATION ×3 (00:38→20:06)
[2022-06-15 06:14] LABS: Basophils Percent Auto 0.1 % (0.2-1.2); Eosinophils Percent Auto 0.1 % (0-4.4); Hematocrit 41.9 % (37.0-47.0); Hemoglobin 14.1 g/dL (12.0-15.0); Immature Granulocyte Absolute 0.08 K/mm3 (0.00-0.031); Immature Granulocyte Percent A 0.5 % (0-0.5); Lymphocytes Absolute Auto 1.81 K/mm3 (0.9-3.2); Lymphocytes Percent Auto 10.9 % (18.3-44.2); Mean Corpuscular HGB Conc 33.7 g/dl (32-36); Mean Corpuscular Hemoglobin 28.3 pg (26-34); Mean Corpuscular Volume 84.1 fl (80-100); Mean Platelet Volume 10.4 fl (7.4-10.4); Monocytes Absolute Auto 1.8 K/mm3 (0.1-0.6); Monocytes Percent Auto 10.9 % (2.6-8.5); Neutrophils Absolute Auto 12.9 K/mm3 (1.3-6.7); Neutrophils Percent Auto 77.5 % (45.5-73.1); Platelet Count Result 292 k/mm3 (150-375); Red Blood Count 4.98 M/mm3 (4.2-5.4); Red Cell Distribution Width 14.6 % (11.5-14.5); White Blood Count 16.6 K/mm3 (4.5-10.0)
[2022-06-15 06:21] LABS: CRP 6.9 mg/dL (<1.0)
[2022-06-15 06:55] LABS: Procalcitonin 1.2 ng/mL
[2022-06-15] MEDS: BUDESONIDE RESPULE NEB 0.5 MG/2 ML AMP INHALATION ×2 (07:37→20:06)
[2022-06-15] MEDS: ACIDOPHILUS/BULGARICUS CHEWABLE TABLET 2 TABLET BY MOUTH (09:11)
[2022-06-15] MEDS: guaiFENesin 12 HR 600 MG TABCR PO ×2 (09:12→20:21)
[2022-06-15] MEDS: FERROUS SULFATE 324 MG TABLET PO (09:12)
[2022-06-15] MEDS: ENOXAPARIN 40 MG/0.4 ML SYRINGE SUB-Q (09:12)
[2022-06-15] MEDS: CALCIUM CARBONATE (OSCAL) 500 MG TABLET PO (09:13)
--- NOTE | 2022-06-15 11:46 | HOMEO2EVAL ---
Evaluation was performed at [facility] Home Oxygen Evaluation RC: Home Oxygen (O2) Evaluation Start: 06/15/22 10:57 Freq: ONCE Status: Active Protocol: RPE Activity Type Activity Date Activity User E-sign Co-sign Detail Recorded Client Recorded Date Recorded By Document 06/15/22 11:30 PETER [email or web address] 06/15/22 11:46 PETER Document 06/15/22 11:35 PETER [email or web address] 06/15/22 11:46 PETER Document 06/15/22 11:45 PETER [email or web address] 06/15/22 11:46 PETER 06/15/22 06/15/22 06/15/22 11:30 11:35 11:45 Home O2 Evaluation [Oxygen] -Test Phase Resting Exercise Resting -Oxygen Delivery Room Air Room Air Room Air [Pulse Oximetry] -Pulse Oximetry (90-100 %) 95 93 95 [Pulse Rate] -Pulse Rate (60-100 beats/min) 89 107 H 95 [Exercise] -Ambulation Distance (feet) 500 -Ambulation Distance (meters) 152.39 [Comments] -Home Oxygen Evaluation Comments No home o2 needed at this time [Charges] -Treatment Charges O2 Evaluation - Inpatient
--- NOTE | 2022-06-15 11:46 | PCRCNOTE ---
Home O2 eval completed. No home O2 needed at this time
--- NOTE | 2022-06-15 17:02 | PM.IMPN ---
Progress Note: A&P Assessment and Plan (1) RLL pneumonia: Code(s): J18.9 - Pneumonia, unspecified organism Status: Acute Assessment and Plan: Patient presented with c/o SOB x3 days and chest x-ray shows RLL infiltrates. continue with IV Rocephin and Zithromax in the ED, first dose on 06/12/22. WBC 25 (was 24 on admission), trended down to 16.6 today. CRP 6.9, procal 1.2. 06/15/22 Transition to oral Levaquin 750 mg PO daily x 5 days Blood cultures negative to date. Wean O2 to keep sats>90% - stable. Supportive care Continue to monitor Continue Coronet therapy Repeat CBC, CRP and procalcitonin. (2) COPD (chronic obstructive pulmonary disease): Qualifiers: COPD type: emphysema Emphysema type: unspecified Qualified Code(s): J43.9 - Emphysema, unspecified Code(s): J44.9 - Chronic obstructive pulmonary disease, unspecified Status: Acute Assessment and Plan: Acute exacerbation of COPD. Duonebs Q6 hours scheduled. Continue budesonide neb Q12 hour 06/13 stopped solu-medrol and monitor off systemic steroids. Continue to hold steroids and no wheezing was appreciated on exam Discussed patient case and plan of care with Pulmonology who is is agreement on 06/13/22. Continue mucinex BID PO Home O2 evaluation (3) Former tobacco use: Code(s): Z87.891 - Personal history of nicotine dependence Status: Chronic Assessment and Plan: Former smoker with 40 pack year history, quit in 2013. (4) Peripheral vascular disease: Code(s): I73.9 - Peripheral vascular disease, unspecified Status: Chronic Assessment and Plan: chronic, continue aspirin and Crestor. Plan CODE STATUS: FULL CODE Disposition: home when respiratory status improved. Possible discharge tomorrow if continues to improve. Time Spent With Patient Time with patient: 15 - 25 minutes Subjective Date/time seen: 06/15/22 17:02 Interval history: Patient is a 71 yo female with COPD who presented to the ED for evaluation of worsening shortness of breath for 3 days prior to admission. In the ED, she was tachycardic HR 124, RR 30. and requiring 2L NC. Chest x-ray suggested RLL pneumonia and WBC 24 on admission. She was admitted for management of community acquired pneumonia. She reports persistent shortness of breath with exertion and has been wearing oxygen when activity. Her cough is more productive today and thick green. No chest pain or palpitations. Her appetite is fair. Review of Systems Review of Systems: All systems reviewed & are unremarkable except as noted in HPI and below Exam Narrative: General: No distress.? Thin older adult female sitting up in bed. Mental Status/Psych: Awake, alert and oriented x3 with clear speech. Neutral mood and affect. Pleasant and cooperative. Skin: fair, warm, dry and intact without rashes or lesions. Fair turgor.? HEENT: Normocephalic. Sclera is non-icteric. pupils equal and round. Oral mucosa pink and moist. Neck: No JVD. Heart: S1 and S2 regular rate and rhythm. No murmurs, gallops, or rubs auscultated. Chest: moist cough, Lung sounds diminished but clear in all snow. No wheezing, rhonchi, or rales appreciated. Abdomen: Soft, flat and non-tender to palpation.? Bowel sounds present in all 4 quadrants. Extremities:? Grossly normal ROM all extremities. No edema, erythema or calf tenderness. Radial and dorsalis pedis pulses +2 bilaterally. Neurological: No focal deficits. Objective Data Vital Signs Vital Signs: Vital Signs - 24 hr 06/14/22 19:55 06/14/22 19:55 06/14/22 20:18 Temperature Pulse Rate 103 H 103 H 102 H Respiratory Rate 18 18 Blood Pressure Pulse Oximetry 93 Oxygen Delivery Room Air 06/14/22 22:00 06/14/22 20:00 06/15/22 00:35 Temperature 99.3 F Pulse Rate 108 H 110 H Respiratory Rate 19 18 Blood Pressure 142/76 H Pulse Oximetry 91 Oxygen Delivery Room Air 06/15/22 00:49
[2022-06-15] MEDS: levoFLOXacin 750 MG TABLET PO (18:25)
[2022-06-15] MEDS: MELATONIN 5 MG TABLET PO (20:21)
[2022-06-16 01:55] VITALS: PULSE 95; RESP 18
[2022-06-16] MEDS: IPRATROPIUM BR 0.02% INH SOLN 0.5 MG/2.5 ML VIAL INHALATION ×3 (02:06→13:27)
[2022-06-16] MEDS: ALBUTEROL SULFATE NEB 2.5 MG/3 ML INH INHALATION ×3 (02:06→13:27)
[2022-06-16 02:07] VITALS: PULSE 97; RESP 18
[2022-06-16 06:00] VITALS: BP 127/78; PULSE 96; RESP 18; TEMP 37.2; O2SAT 95
[2022-06-16 06:46] LABS: Basophils Percent Auto 0.2 % (0.2-1.2); Eosinophils Absolute Auto 0.1 K/mm3 (0-0.3); Eosinophils Percent Auto 0.5 % (0-4.4); Hemoglobin 14.2 g/dL (12.0-15.0); Immature Granulocyte Absolute 0.06 K/mm3 (0.00-0.031); Immature Granulocyte Percent A 0.5 % (0-0.5); Lymphocytes Absolute Auto 1.93 K/mm3 (0.9-3.2); Mean Corpuscular HGB Conc 33.8 g/dl (32-36); Mean Corpuscular Hemoglobin 28.4 pg (26-34); Mean Platelet Volume 10.6 fl (7.4-10.4); Monocytes Absolute Auto 1.5 K/mm3 (0.1-0.6); Monocytes Percent Auto 12.6 % (2.6-8.5); Neutrophils Absolute Auto 8.5 K/mm3 (1.3-6.7); Neutrophils Percent Auto 70.2 % (45.5-73.1); Platelet Count Result 303 k/mm3 (150-375); Red Cell Distribution Width 14.3 % (11.5-14.5); White Blood Count 12.1 K/mm3 (4.5-10.0)
[2022-06-16 07:04] VITALS: PULSE 91; RESP 18
[2022-06-16] MEDS: BUDESONIDE RESPULE NEB 0.5 MG/2 ML AMP INHALATION (07:04)
[2022-06-16 07:32] LABS: Procalcitonin 0.7 ng/mL
[2022-06-16 07:40] VITALS: PULSE 101; RESP 20; O2SAT 94
[2022-06-16] MEDS: ACIDOPHILUS/BULGARICUS CHEWABLE TABLET 2 TABLET BY MOUTH (08:15)
[2022-06-16] MEDS: guaiFENesin 12 HR 600 MG TABCR PO (08:15)
[2022-06-16] MEDS: FERROUS SULFATE 324 MG TABLET PO (08:15)
[2022-06-16] MEDS: ENOXAPARIN 40 MG/0.4 ML SYRINGE SUB-Q (08:16)
[2022-06-16] MEDS: CALCIUM CARBONATE (OSCAL) 500 MG TABLET PO (08:16)
--- NOTE | 2022-06-16 09:01 | PM.DS ---
DS: Admitting Diagnosis Discharge Date 06/16/22 1307 Admitting Diagnosis RLL pneumonia Chronic obstructive pulmonary disease, unspecified DS: Discharge Diagnosis Discharge Diagnosis (1) Sepsis: Code(s): A41.9 - Sepsis, unspecified organism Status: Acute Assessment and Plan: Present on admission (2) RLL pneumonia: Qualifiers: Pneumonia type: due to unspecified organism Qualified Code(s): J18.9 - Pneumonia, unspecified organism Code(s): J18.9 - Pneumonia, unspecified organism Status: Acute (3) Acute exacerbation of chronic obstructive airways disease: Code(s): J44.1 - Chronic obstructive pulmonary disease with (acute) exacerbation Status: Acute DS: Summary Hospital Course Reason for hospitalization: Shortness of breath Hospital Course: Amada Lemus is a 71 yo female with COPD who presented to the ED for evaluation of worsening shortness of breath for 3 days prior to admission. In the ED, she was tachycardic HR 124, RR 30. and requiring 2L NC. Chest x-ray suggested RLL pneumonia and WBC 24 on admission. She was admitted for management of community acquired pneumonia, sepsis and acute COPD exacerbation secondary to pneumonia. 1. Sepsis: In the ED, she was tachycardic HR 124, RR 30. and requiring 2L NC. Chest x-ray suggested RLL pneumonia and WBC 24 on admission. Treated with antibiotics Procalcitonin 1.2 CRP mildly elevated. 2. RLL pneumonia: Patient presented with c/o SOB x3 days and chest x-ray shows RLL infiltrates. treated with IV Rocephin and Zithromax in the ED, first dose on 06/12/22-06/14/22. WBC 25 (was 24 on admission), trended down to 16.6. CRP 6.9 to 8, procal 1.2 to 0.7.? 06/15/22 Transition to oral Levaquin 750 mg PO daily x 5 days Blood cultures negative to date. Wean O2 to keep sats>90% - stable. Supportive care Chest physio with Coronet therapy and incentive spirometry continued 3. COPD (chronic obstructive pulmonary disease): Acute exacerbation of COPD. Duonebs Q6 hours scheduled. budesonide neb Q12 hour 06/13 stopped solu-medrol and monitor off systemic steroids due to lack of wheezing on exam. Continue to hold steroids and no wheezing was appreciated on exam Discussed patient case and plan of care with Pulmonology who reviewed the patient's chart and is in agreement on 06/13/22. treated with mucinex BID PO Home O2 evaluation completed and spO2 >93% with activity and rest on room air Patient improved with IV antibiotics, nebulizers and supportive care. She was weaned to room air and transitioned to oral antibiotics. She was discharged home in stable condition on room air and continuing Levaquin 750 mg PO daily x3 more days. She was prescribed albuterol neb solutions at discharge. She will have repeat chest x-ray on 06/26/22 for pnuemonia clearing. Status at Discharge Cognitive/behavioral status at discharge: AOx3, baseline Functional status at discharge: independent ambulation Overall status at discharge: patient is progressing back to baseline Time Spent with Patient Time attestation: Total time spent providing and/or coordinating discharge services: Time spent: Greater than 30 minutes Exam Narrative: General: No distress.? Thin older adult female sitting up in bed. Temp 98.9F, HR 96, RR 20, BP 127/78, spO2 94-95% room air. BMI 16.4, Mental Status/Psych: Awake, alert and oriented x3 with clear speech. Neutral mood and affect. Pleasant and cooperative. Skin: fair, warm, dry and intact without rashes or lesions. Fair turgor.? HEENT: Normocephalic. Sclera is non-icteric. pupils equal and round. Oral mucosa pink and moist. Neck: No JVD. Heart: S1 and S2 regular rate and rhythm. No murmurs, gallops, or rubs auscultated. Chest: moist cough, Lung sounds diminished but clear in all snow. No wheezing, rhonchi, or rales appreciated. Abdomen: Soft, flat and non-tender to palpation.? Bowel sounds present in all 4 quadrants. Extremities:? Gr
[2022-06-16 13:27] VITALS: RESP 20
== END 2022-06-16 14:00 | disposition home or self-care (01) | DRG 871 ==
LOC: ANHED 20:58 → ANH3MEDSUR 22:01
PROVIDERS: Emergency Medicine; Admitting Provider Internal Medicine; Emergency Provider Emergency Medicine; PCP Internal Medicine; Visit Provider Nurse Practitioner Family
DX: A41.9 Sepsis, unspecified organism (principal); J18.9 Pneumonia, unspecified organism; J43.9 Emphysema, unspecified; E78.5 Hyperlipidemia, unspecified; I73.9 Peripheral vascular disease, unspecified; Z20.822 Contact with and (suspected) exposure to COVID-19; Z79.82 Long term (current) use of aspirin; Z88.0 Allergy status to penicillin; Z87.891 Personal history of nicotine dependence
CPT/HCPCS: 36415; 71046; 80053; 84145; 85025; 86140; 87040; 87637; 93005; 94618; 94640; 94667; 94668; 96365; 96367; 96372; 96375; 96376; 99285; A9270; G0378; J0131; J0456; J0696; J1650; J2930; J7030

== ENCOUNTER 2022-06-30 13:23 | Outpatient (CLI) | payer MEDICARE, SELFPAY ==
--- NOTE | ~2022-06-30 | XR_ITS ---
Clinical Indication: Pneumonia PA and lateral views of the chest: Comparison: 06/12/2022 Findings: Small right pleural effusion is present with probable mildly improved right lower lobe cons olidation. Possible underlying COPD. Cardiomediastinal silhouette is within normal limits. Bones and soft tissues are unremarkable. Impression: Probable minimal interval improvement in right lower lobe pneumonia. Small right pleural effusion. Probable underlying COPD. Reviewed, dictated and finalized at location . 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 Small right pleural effusion. Probable underlying COPD.
== END 2022-06-30 13:24 | disposition home or self-care (01) ==
PROVIDERS: PCP Internal Medicine; Visit Provider Internal Medicine
DX: J18.9 Pneumonia, unspecified organism (principal); J90 Pleural effusion, not elsewhere classified
CPT/HCPCS: 71046

== ENCOUNTER 2022-08-17 01:24 | Day surgery (SDC) | payer MEDICARE, SELFPAY ==
[2022-06-11 13:22] VITALS: BMI 16.2
[2022-08-17 12:36] VITALS: BP 120/73; PULSE 88; RESP 18; TEMP 36.8; O2SAT 99
--- NOTE | 2022-08-17 12:43 | WPDANESEPPF ---
Anes - Initial Pre Proc Eval Procedure: Operation Date: 08/17/22 14:30 Proposed Procedures p Esophagogastroduodenoscopy - Neftali Mackey MD Date/Time: 08/17/22 12:43 Surgeon: Neftali Mackey MD Pre Op Diagnosis: esophageal stricture Patient Data Age: 71 Gender: F Height: 1.68 m Weight: 42.9 kg Last Vital Signs Temp 98.3 F 08/17/22 12:36 Pulse 88 08/17/22 12:36 Resp 18 08/17/22 12:36 BP 120/73 08/17/22 12:36 Pulse Ox 99 08/17/22 12:36 O2 Del Method Room Air 08/17/22 12:36 Allergies Allergy/AdvReac Type Severity Reaction Status Date / Time Penicillins Allergy Intermediate hallucinati Verified 08/17/22 12:35 ons Home Medications Medication Instructions Recorded Confirmed Type aspirin 81 mg tablet,delayed 81 mg PO DAILY 09/22/19 08/06/22 History release (Cory Low Dose Aspirin) calcium carbonate 500 mg calcium 500 mg PO DAILY 09/22/19 08/06/22 History (1,250 mg) chewable tablet (Calcium 500) ferrous sulfate 325 mg (65 mg 325 mg PO DAILY 09/22/19 08/06/22 History iron) tablet (Iron (ferrous sulfate)) lactobacillus combination no.4 3 3,000 mmu cells PO DAILY 09/22/19 08/06/22 History billion cell capsule (Probiotic) rosuvastatin 20 mg tablet 20 mg PO DAILY 09/22/19 08/06/22 History Adult Multivitamin Gummies 2 gummy PO DAILY 02/27/22 08/06/22 History albuterol sulfate 90 mcg/actuation 2 puff inhalation Q4H PRN 02/27/22 08/06/22 History aerosol inhaler Shortness Of Breath budesonide 160 mcg-glycopyr 9 2 inh inhalation BID 06/13/22 08/06/22 History mcg-formot 4.8 mcg/actuation HFA inhaler (Breztri Aerosphere) Patient hx anesthesia problems: none Family hx anesthesia problems: none Results Review: All pre-operative results and documents have been reviewed as part of the pre-operative evaluation. [facility] Past Medical History Medical History (Updated 06/20/22 @ 13:12 by Krupa Donnelly APRN) COPD (chronic obstructive pulmonary disease) Hyperlipidemia Peripheral vascular disease Surgical History Surgical History History of esophagogastroduodenoscopy (EGD) S/P femoral-popliteal bypass surgery Family History Family History (Updated 06/12/22 @ 23:24 by Kimberley López RN) Father Emphysema of lung Chronic obstructive pulmonary disease Sibling Lung cancer Social History Social History Smoking packs per day: 1 Smoking cigarettes per day: 20.0 Years smoked: 40 Smoking pack-years: 40.00 Smoking status: Former smoker Tobacco type: cigarettes Smoking end date: 02/16/14 Alcohol intake: never Substance use: never Substance use type: does not use Lack of Transportation: No Lack of Food: Never True Current Housing: I Have Housing Concerned About Future Housing: No Difficulty Paying Gas/Electric Bills: No Difficulty Paying for Meds: No Currently Unemployed: No Education: High School Diploma/GED Difficulty w/ Childcare or Family Care: No Living arrangements: alone Spiritual care concerns: No Anes - Eval Final PreProcedure Day of Procedure 08/17/22 12:43 Patient weight: thin Heart: regular rate and rhythm Lungs: clear to auscultation Airway: Mallampati scale class II Neurological: alert and oriented Last oral intake: >/= 8 hours ASA classification: III Emergent: no Anesthetic plan: proceed Anesthesia type and monitoring: general GIVS and standard monitoring Results Review: All pre-operative results and documents have been reviewed as part of the pre-operative evaluation. Informed Consent: The patient's anesthetic plan and its attendant risks and benefits were discussed with the patient/family/POA. Questions were solicited and answers provided to the satisfaction of the patient/family/POA.
[2022-08-17] MEDS: LACTATED RINGERS 1,000 ML 150 ML IV CONT (12:46)
--- NOTE | 2022-08-17 13:38 | PM.HPGS ---
History of Present Illness History of Present Illness Consent: Risks, benefits, and alternatives have been discussed and questions answered. Patient agrees to proceed with procedure. 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 Her strictures actually measured 10 cm in length in the proximal and mid esophagus. It is generally too tight to get the endoscope beyond and in the last few times she has been treated the maximal diameter dilator use was 24 [place]. She denies losing weight but she can tell that it is getting tighter. Review of Systems Review of Systems: All systems reviewed & are unremarkable except as noted in HPI and below PMFSH Past Medical History Medical History COPD (chronic obstructive pulmonary disease) Hyperlipidemia Peripheral vascular disease Surgical History Surgical History History of esophagogastroduodenoscopy (EGD) S/P femoral-popliteal bypass surgery Family History Family History Father Emphysema of lung Chronic obstructive pulmonary disease Sibling Lung cancer Social History Social History Smoking packs per day: 1 Smoking cigarettes per day: 20.0 Years smoked: 40 Smoking pack-years: 40.00 Smoking status: Former smoker Tobacco type: cigarettes Smoking end date: 02/16/14 Alcohol intake: never Substance use: never Substance use type: does not use Lack of Transportation: No Lack of Food: Never True Current Housing: I Have Housing Concerned About Future Housing: No Difficulty Paying Gas/Electric Bills: No Difficulty Paying for Meds: No Currently Unemployed: No Education: High School Diploma/GED Difficulty w/ Childcare or Family Care: No Living arrangements: alone Spiritual care concerns: No Meds Home Medications and Allergies Home Medications Medication Instructions Recorded Confirmed Type aspirin 81 mg tablet,delayed 81 mg PO DAILY 09/22/19 08/06/22 History release (Cory Low Dose Aspirin) calcium carbonate 500 mg calcium 500 mg PO DAILY 09/22/19 08/06/22 History (1,250 mg) chewable tablet (Calcium 500) ferrous sulfate 325 mg (65 mg 325 mg PO DAILY 09/22/19 08/06/22 History iron) tablet (Iron (ferrous sulfate)) lactobacillus combination no.4 3 3,000 mmu cells PO DAILY 09/22/19 08/06/22 History billion cell capsule (Probiotic) rosuvastatin 20 mg tablet 20 mg PO DAILY 09/22/19 08/06/22 History Adult Multivitamin Gummies 2 gummy PO DAILY 02/27/22 08/06/22 History albuterol sulfate 90 mcg/actuation 2 puff inhalation Q4H PRN 02/27/22 08/06/22 History aerosol inhaler Shortness Of Breath budesonide 160 mcg-glycopyr 9 2 inh inhalation BID 06/13/22 08/06/22 History mcg-formot 4.8 mcg/actuation HFA inhaler (Breztri Aerosphere) Allergies Allergy/AdvReac Type Severity Reaction Status Date / Time Penicillins Allergy Intermediate hallucinati Verified 08/17/22 12:35 ons Vital Signs Vital Signs - 24 hr 08/17/22 12:36 Temperature 36.8 C Pulse Rate 88 Respiratory Rate 18 Blood Pressure 120/73 Pulse Oximetry 99 Oxygen Delivery Room Air Exam Const: General: alert Orientation/consciousness: patient oriented x3 Resp: Auscultation: clear to auscultation bilaterally Cardio: Rhythm: regular rhythm GI: GI Palp: Yes Soft to palpation and No Tenderness to palpation present (GI) Neuro: General: patient oriented x3 Assessment and Plan Assessment and plan (1) Dysphagia: Code(s): R13.10 - Dysphagia, unspecified Status: Resolved Assessment and Plan: EGD with possible biopsy or dilatation or cautery.
[2022-08-17] MEDS: BENZOCAINE (*SP) 60 ML SPRAY CAN (HURRICAINE) 1 SPRAY MUCOUS MEM (13:48)
[2022-08-17 14:02] VITALS: BP 138/64; PULSE 78; RESP 18; O2SAT 99
[2022-08-17 14:12] VITALS: BP 148/71; PULSE 76; RESP 16; O2SAT 99
[2022-08-17 14:22] VITALS: BP 120/94; PULSE 72; RESP 20; O2SAT 99
== END 2022-08-17 14:30 | disposition home or self-care (01) ==
PROVIDERS: PCP Internal Medicine; Visit Provider Internal Medicine Gastroenterology
PROC: 0DJ08ZZ Inspection of Upper Intestinal Tract, Via Natural or Artificial Opening Endoscopic (ICD-10-PCS; CPT 43235; principal; 2022-08-17 14:30)
DX: K22.2 Esophageal obstruction (principal); J44.9 Chronic obstructive pulmonary disease, unspecified; E78.5 Hyperlipidemia, unspecified; I73.9 Peripheral vascular disease, unspecified; Z87.891 Personal history of nicotine dependence; Z79.82 Long term (current) use of aspirin
CPT/HCPCS: 43450; 43235; J2704; J7120

== ENCOUNTER 2022-12-06 02:10 | Day surgery (SDC) | payer MEDICARE, SELFPAY ==
[2022-11-26 16:05] VITALS: BMI 16.2
--- NOTE | 2022-12-05 20:43 | PM.HPGS ---
History of Present Illness History of Present Illness Consent: Risks, benefits, and alternatives have been discussed and questions answered. Patient agrees to proceed with procedure. Chief complaint: Esophageal Stricture Narrative: Amada Lemus is a 71 year old female with severestricture of esophagus Review of Systems Review of Systems: All systems reviewed & are unremarkable except as noted in HPI and below PMFSH Past Medical History Medical History COPD (chronic obstructive pulmonary disease) Hyperlipidemia Peripheral vascular disease Surgical History Surgical History History of esophagogastroduodenoscopy (EGD) S/P femoral-popliteal bypass surgery Family History Family History Father Emphysema of lung Chronic obstructive pulmonary disease Sibling Lung cancer Social History Social History Smoking packs per day: 1 Smoking cigarettes per day: 20.0 Years smoked: 40 Smoking pack-years: 40.00 Smoking status: Former smoker Tobacco type: cigarettes Smoking end date: 02/16/14 Alcohol intake: never Substance use: never Substance use type: does not use Lack of Transportation: No Lack of Food: Never True Current Housing: I Have Housing Concerned About Future Housing: No Difficulty Paying Gas/Electric Bills: No Difficulty Paying for Meds: No Currently Unemployed: No Education: High School Diploma/GED Difficulty w/ Childcare or Family Care: No Living arrangements: alone Spiritual care concerns: No Meds Home Medications and Allergies Home Medications Medication Instructions Recorded Confirmed Type aspirin 81 mg tablet,delayed 81 mg PO DAILY 09/22/19 11/26/22 History release (Cory Low Dose Aspirin) calcium carbonate 500 mg calcium 500 mg PO DAILY 09/22/19 11/26/22 History (1,250 mg) chewable tablet (Calcium 500) ferrous sulfate 325 mg (65 mg 325 mg PO DAILY 09/22/19 11/26/22 History iron) tablet (Iron (ferrous sulfate)) lactobacillus combination no.4 3 3,000 mmu cells PO DAILY 09/22/19 11/26/22 History billion cell capsule (Probiotic) rosuvastatin 20 mg tablet 20 mg PO DAILY 09/22/19 11/26/22 History Adult Multivitamin Gummies 2 gummy PO DAILY 02/27/22 11/26/22 History albuterol sulfate 90 mcg/actuation 2 puff inhalation Q4H PRN 02/27/22 11/26/22 History aerosol inhaler Shortness Of Breath budesonide 160 mcg-glycopyr 9 2 inh inhalation BID 06/13/22 11/26/22 History mcg-formot 4.8 mcg/actuation HFA inhaler ([employer]) Allergies Allergy/AdvReac Type Severity Reaction Status Date / Time Penicillins Allergy Intermediate hallucinati Verified 12/06/22 09:57 ons Exam Const: General: alert Orientation/consciousness: patient oriented x3 Resp: Auscultation: clear to auscultation bilaterally Cardio: Rhythm: regular rhythm GI: GI Palp: Yes Soft to palpation and No Tenderness to palpation present (GI) Neuro: General: patient oriented x3 Assessment and Plan Assessment and plan (1) Dysphagia: Code(s): R13.10 - Dysphagia, unspecified Status: Resolved Assessment and Plan: EGD with possible biopsy or dilatation or cautery.
[2022-12-06 09:58] VITALS: BP 114/88; PULSE 93; RESP 18; TEMP 37.1; O2SAT 98
[2022-12-06] MEDS: LACTATED RINGERS 1,000 ML 150 ML IV CONT (10:07)
--- NOTE | 2022-12-06 10:46 | WPDANESEPPF ---
Anes - Initial Pre Proc Eval Procedure: Operation Date: 12/06/22 11:30 Proposed Procedures p Esophagogastroduodenoscopy - Neftali Mackey MD Date/Time: 12/06/22 10:46 Surgeon: Neftali Mackey MD Pre Op Diagnosis: Esophageal Stricture Patient Data Age: 71 Gender: F Height: 1.68 m Weight: 44.4 kg Last Vital Signs Temp 98.8 F 12/06/22 09:58 Pulse 93 12/06/22 09:58 Resp 18 12/06/22 09:58 BP 114/88 12/06/22 09:58 Pulse Ox 98 12/06/22 09:58 O2 Del Method Room Air 12/06/22 09:58 Allergies Allergy/AdvReac Type Severity Reaction Status Date / Time Penicillins Allergy Intermediate hallucinati Verified 12/06/22 09:57 ons Home Medications Medication Instructions Recorded Confirmed Type aspirin 81 mg tablet,delayed 81 mg PO DAILY 09/22/19 11/26/22 History release (Cory Low Dose Aspirin) calcium carbonate 500 mg calcium 500 mg PO DAILY 09/22/19 11/26/22 History (1,250 mg) chewable tablet (Calcium 500) ferrous sulfate 325 mg (65 mg 325 mg PO DAILY 09/22/19 11/26/22 History iron) tablet (Iron (ferrous sulfate)) lactobacillus combination no.4 3 3,000 mmu cells PO DAILY 09/22/19 11/26/22 History billion cell capsule (Probiotic) rosuvastatin 20 mg tablet 20 mg PO DAILY 09/22/19 11/26/22 History Adult Multivitamin Gummies 2 gummy PO DAILY 02/27/22 11/26/22 History albuterol sulfate 90 mcg/actuation 2 puff inhalation Q4H PRN 02/27/22 11/26/22 History aerosol inhaler Shortness Of Breath budesonide 160 mcg-glycopyr 9 2 inh inhalation BID 06/13/22 11/26/22 History mcg-formot 4.8 mcg/actuation HFA inhaler (Breztri Aerosphere) Patient hx anesthesia problems: none Family hx anesthesia problems: none Results Review: All pre-operative results and documents have been reviewed as part of the pre-operative evaluation. [facility] Past Medical History Medical History COPD (chronic obstructive pulmonary disease) Hyperlipidemia Peripheral vascular disease Surgical History Surgical History History of esophagogastroduodenoscopy (EGD) S/P femoral-popliteal bypass surgery Family History Family History Father Emphysema of lung Chronic obstructive pulmonary disease Sibling Lung cancer Social History Social History Smoking packs per day: 1 Smoking cigarettes per day: 20.0 Years smoked: 40 Smoking pack-years: 40.00 Smoking status: Former smoker Tobacco type: cigarettes Smoking end date: 02/16/14 Alcohol intake: never Substance use: never Substance use type: does not use Lack of Transportation: No Lack of Food: Never True Current Housing: I Have Housing Concerned About Future Housing: No Difficulty Paying Gas/Electric Bills: No Difficulty Paying for Meds: No Currently Unemployed: No Education: High School Diploma/GED Difficulty w/ Childcare or Family Care: No Living arrangements: alone Spiritual care concerns: No Anes - Eval Final PreProcedure Day of Procedure 12/06/22 10:46 Patient weight: normal Heart: regular rate and rhythm Lungs: clear to auscultation Airway: Mallampati scale class II Neurological: alert and oriented Last oral intake: >/= 8 hours ASA classification: III Emergent: no Anesthetic plan: proceed Anesthesia type and monitoring: general GIVS and standard monitoring Results Review: All pre-operative results and documents have been reviewed as part of the pre-operative evaluation. Informed Consent: The patient's anesthetic plan and its attendant risks and benefits were discussed with the patient/family/POA. Questions were solicited and answers provided to the satisfaction of the patient/family/POA.
[2022-12-06 10:59] VITALS: BP 143/72; PULSE 81; RESP 18; O2SAT 100
[2022-12-06 11:09] VITALS: BP 130/68; PULSE 76; RESP 18; O2SAT 100
[2022-12-06 11:19] VITALS: BP 141/70; PULSE 74; RESP 18; O2SAT 100
== END 2022-12-06 11:33 | disposition home or self-care (01) ==
PROVIDERS: PCP Internal Medicine; Visit Provider Internal Medicine Gastroenterology
PROC: 0DJ08ZZ Inspection of Upper Intestinal Tract, Via Natural or Artificial Opening Endoscopic (ICD-10-PCS; CPT 43235; principal; 2022-12-06 11:30)
DX: K22.2 Esophageal obstruction (principal); J44.9 Chronic obstructive pulmonary disease, unspecified; E78.5 Hyperlipidemia, unspecified; Z87.891 Personal history of nicotine dependence; Z79.51 Long term (current) use of inhaled steroids; Z79.82 Long term (current) use of aspirin
CPT/HCPCS: 43450; 43235; J2704; J7120

== ENCOUNTER 2023-06-28 08:46 | Day surgery (SDC) | payer MEDICARE, SELFPAY ==
[2023-06-12 09:50] VITALS: BMI 16.2
--- NOTE | 2023-06-26 09:33 | SUR.PREOP ---
Patient called regarding upcoming procedure. Reviewed preop instructions, appointment times, and procedure prep.
--- NOTE | 2023-06-27 18:05 | PM.HPGS ---
History of Present Illness History of Present Illness Consent: Risks, benefits, and alternatives have been discussed and questions answered. Patient agrees to proceed with procedure. Chief complaint: Esophageal Stricture Narrative: Amada Lemus is a 72 year old female with a chronic severe stricture of the midesophagus. When she was here few months ago I was able to dilated only up to 24 [place] with a [place] type dilator. Review of Systems Review of Systems: All systems reviewed & are unremarkable except as noted in HPI and below PMFSH Past Medical History Medical History COPD (chronic obstructive pulmonary disease) Hyperlipidemia Peripheral vascular disease Surgical History Surgical History History of esophagogastroduodenoscopy (EGD) S/P femoral-popliteal bypass surgery Family History Family History Father Emphysema of lung Chronic obstructive pulmonary disease Sibling Lung cancer Social History Social History Smoking packs per day: 1 Smoking cigarettes per day: 20.0 Years smoked: 40 Smoking pack-years: 40.00 Smoking status: Former smoker Tobacco type: cigarettes Smoking end date: 02/16/14 Alcohol intake: current Substance use: never Substance use type: does not use Lack of Transportation: No Lack of Food: Never True Current Housing: I Have Housing Concerned About Future Housing: No Difficulty Paying Gas/Electric Bills: No Difficulty Paying for Meds: No Currently Unemployed: No Education: High School Diploma/GED Difficulty w/ Childcare or Family Care: No Living arrangements: alone Spiritual care concerns: No Meds Home Medications and Allergies Home Medications Medication Instructions Recorded Confirmed Type aspirin 81 mg tablet,delayed 81 mg PO DAILY 09/22/19 06/12/23 History release (Cory Low Dose Aspirin) calcium carbonate 500 mg calcium 500 mg PO DAILY 09/22/19 06/12/23 History (1,250 mg) chewable tablet (Calcium 500) ferrous sulfate 325 mg (65 mg 325 mg PO DAILY 09/22/19 06/12/23 History iron) tablet (Iron (ferrous sulfate)) rosuvastatin 20 mg tablet 20 mg PO DAILY 09/22/19 06/12/23 History Adult Multivitamin Gummies 2 gummy PO DAILY 02/27/22 06/12/23 History albuterol sulfate 90 mcg/actuation 2 puff inhalation Q4H PRN 02/27/22 06/12/23 History aerosol inhaler Shortness Of Breath budesonide 160 mcg-glycopyr 9 2 inh inhalation BID 06/13/22 06/28/23 History mcg-formot 4.8 mcg/actuation HFA inhaler ([employer]) Allergies Allergy/AdvReac Type Severity Reaction Status Date / Time Penicillins Allergy Intermediate hallucinati Verified 06/28/23 12:19 ons Exam Const: General: alert Orientation/consciousness: patient oriented x3 Resp: Auscultation: clear to auscultation bilaterally Cardio: Rhythm: regular rhythm GI: GI Palp: Yes Soft to palpation and No Tenderness to palpation present (GI) Neuro: General: patient oriented x3 Assessment and Plan Assessment and plan (1) Esophageal stricture: Code(s): K22.2 - Esophageal obstruction Status: Acute Assessment and Plan: EGD with possible biopsy or dilatation or cautery.
[2023-06-28 12:20] VITALS: BP 153/59; PULSE 80; RESP 16; TEMP 37.1; O2SAT 95
[2023-06-28] MEDS: LACTATED RINGERS 1,000 ML 150 ML IV CONT (12:30)
--- NOTE | 2023-06-28 12:53 | WPDANESEPPF ---
Anes - Initial Pre Proc Eval Procedure: Operation Date: 06/28/23 13:30 Proposed Procedures p Esophagogastroduodenoscopy - Neftali Mackey MD Date/Time: 06/28/23 12:53 Surgeon: Neftali Mackey MD Pre Op Diagnosis: Esophageal Stricture Patient Data Age: 72 Gender: F Height: 1.68 m Weight: 45.1 kg Last Vital Signs Temp 98.7 F 06/28/23 12:20 Pulse 80 06/28/23 12:20 Resp 16 06/28/23 12:20 BP 153/59 H 06/28/23 12:20 Pulse Ox 95 06/28/23 12:20 O2 Del Method Room Air 06/28/23 12:20 Allergies Allergy/AdvReac Type Severity Reaction Status Date / Time Penicillins Allergy Intermediate hallucinati Verified 06/28/23 12:19 ons Home Medications Medication Instructions Recorded Confirmed Type aspirin 81 mg tablet,delayed 81 mg PO DAILY 09/22/19 06/12/23 History release (Cory Low Dose Aspirin) calcium carbonate 500 mg calcium 500 mg PO DAILY 09/22/19 06/12/23 History (1,250 mg) chewable tablet (Calcium 500) ferrous sulfate 325 mg (65 mg 325 mg PO DAILY 09/22/19 06/12/23 History iron) tablet (Iron (ferrous sulfate)) rosuvastatin 20 mg tablet 20 mg PO DAILY 09/22/19 06/12/23 History Adult Multivitamin Gummies 2 gummy PO DAILY 02/27/22 06/12/23 History albuterol sulfate 90 mcg/actuation 2 puff inhalation Q4H PRN 02/27/22 06/12/23 History aerosol inhaler Shortness Of Breath budesonide 160 mcg-glycopyr 9 2 inh inhalation BID 06/13/22 06/28/23 History mcg-formot 4.8 mcg/actuation HFA inhaler (Breztri Aerosphere) Patient hx anesthesia problems: none Family hx anesthesia problems: none Results Review: All pre-operative results and documents have been reviewed as part of the pre-operative evaluation. [facility] Past Medical History Medical History COPD (chronic obstructive pulmonary disease) Hyperlipidemia Peripheral vascular disease Surgical History Surgical History History of esophagogastroduodenoscopy (EGD) S/P femoral-popliteal bypass surgery Family History Family History Father Emphysema of lung Chronic obstructive pulmonary disease Sibling Lung cancer Social History Social History Smoking packs per day: 1 Smoking cigarettes per day: 20.0 Years smoked: 40 Smoking pack-years: 40.00 Smoking status: Former smoker Tobacco type: cigarettes Smoking end date: 02/16/14 Alcohol intake: current Substance use: never Substance use type: does not use Lack of Transportation: No Lack of Food: Never True Current Housing: I Have Housing Concerned About Future Housing: No Difficulty Paying Gas/Electric Bills: No Difficulty Paying for Meds: No Currently Unemployed: No Education: High School Diploma/GED Difficulty w/ Childcare or Family Care: No Living arrangements: alone Spiritual care concerns: No Anes - Eval Final PreProcedure Day of Procedure 06/28/23 12:53 Patient weight: normal Heart: regular rate and rhythm Lungs: clear to auscultation Airway: Mallampati scale class II Neurological: alert and oriented Last oral intake: >/= 8 hours ASA classification: III Emergent: no Anesthetic plan: proceed Anesthesia type and monitoring: general GIVS and standard monitoring Results Review: All pre-operative results and documents have been reviewed as part of the pre-operative evaluation. Informed Consent: The patient's anesthetic plan and its attendant risks and benefits were discussed with the patient/family/POA. Questions were solicited and answers provided to the satisfaction of the patient/family/POA.
[2023-06-28 13:38] VITALS: BP 105/59; PULSE 78; RESP 18; O2SAT 100
[2023-06-28 13:48] VITALS: BP 137/75; PULSE 88; RESP 18; O2SAT 99
[2023-06-28 13:58] VITALS: BP 140/75; PULSE 77; RESP 18; O2SAT 98
== END 2023-06-28 14:05 ==
PROVIDERS: PCP Internal Medicine; Visit Provider Internal Medicine Gastroenterology
PROC: 0DJ08ZZ Inspection of Upper Intestinal Tract, Via Natural or Artificial Opening Endoscopic (ICD-10-PCS; CPT 43235; principal; 2023-06-28 13:30)
DX: K22.2 Esophageal obstruction (principal); J44.9 Chronic obstructive pulmonary disease, unspecified; E78.5 Hyperlipidemia, unspecified; I73.9 Peripheral vascular disease, unspecified; Z79.82 Long term (current) use of aspirin; Z79.51 Long term (current) use of inhaled steroids; Z87.891 Personal history of nicotine dependence
CPT/HCPCS: 43450; J2001; J2704; J7120

== ENCOUNTER 2024-01-27 02:03 | Day surgery (SDC) | payer MEDICARE, SELFPAY ==
[2023-12-30 15:12] VITALS: BMI 16.1
--- NOTE | 2024-01-27 11:49 | WPDANESEPPF ---
Anes - Initial Pre Proc Eval Procedure: Operation Date: 01/27/24 13:00 Proposed Procedures p Esophagogastroduodenoscopy - Alec Kong MD Date/Time: 01/27/24 11:49 Surgeon: Alec Kong MD Pre Op Diagnosis: esophageal obstruction Patient Data Age: 73 Gender: F Height: 1.68 m Weight: 42.8 kg Allergies Allergy/AdvReac Type Severity Reaction Status Date / Time Penicillins Allergy Intermediate hallucinati Verified 01/27/24 11:44 ons Home Medications Medication Instructions Recorded Confirmed Type aspirin 81 mg tablet,delayed 81 mg PO DAILY 09/22/19 01/27/24 History release (Cory Low Dose Aspirin) calcium carbonate (Calcium 500) 500 mg PO DAILY 09/22/19 01/27/24 History ferrous sulfate 325 mg (65 mg 325 mg PO DAILY 09/22/19 01/27/24 History iron) tablet (Iron (ferrous sulfate)) rosuvastatin 20 mg tablet 20 mg PO DAILY 09/22/19 01/27/24 History Adult Multivitamin Gummies 2 gummy PO DAILY 02/27/22 01/27/24 History albuterol sulfate 90 mcg/actuation 2 puff inhalation Q4H PRN 02/27/22 01/27/24 History aerosol inhaler Shortness Of Breath budesonide 160 mcg-glycopyr 9 2 inh inhalation BID 06/13/22 01/27/24 History mcg-formot 4.8 mcg/actuation HFA inhaler (Breztri Aerosphere) Patient hx anesthesia problems: none Family hx anesthesia problems: none Results Review: All pre-operative results and documents have been reviewed as part of the pre-operative evaluation. [facility] Past Medical History Medical History COPD (chronic obstructive pulmonary disease) Hyperlipidemia Peripheral vascular disease Surgical History Surgical History History of esophagogastroduodenoscopy (EGD) S/P femoral-popliteal bypass surgery Family History Family History Father Emphysema of lung Chronic obstructive pulmonary disease Sibling Lung cancer Social History Social History Smoking packs per day: 1 Smoking cigarettes per day: 20.0 Years smoked: 40 Smoking pack-years: 40.00 Smoking status: Former smoker Tobacco type: cigarettes Smoking end date: 02/16/14 Alcohol intake: current Substance use: never Substance use type: does not use Lack of Transportation: No Lack of Food: Never True Current Housing: I Have Housing Concerned About Future Housing: No Difficulty Paying Gas/Electric Bills: No Difficulty Paying for Meds: No Currently Unemployed: No Education: High School Diploma/GED Difficulty w/ Childcare or Family Care: No Living arrangements: with family Spiritual care concerns: No Anes - Eval Final PreProcedure Day of Procedure 01/27/24 11:49 Patient weight: normal Heart: regular rate and rhythm Lungs: clear to auscultation Airway: Mallampati scale class II Neurological: alert and oriented Last oral intake: >/= 8 hours ASA classification: III Emergent: no Anesthetic plan: proceed Anesthesia type and monitoring: general GIVS and standard monitoring Results Review: All pre-operative results and documents have been reviewed as part of the pre-operative evaluation. Informed Consent: The patient's anesthetic plan and its attendant risks and benefits were discussed with the patient/family/POA. Questions were solicited and answers provided to the satisfaction of the patient/family/POA.
[2024-01-27 11:50] VITALS: BP 145/89; PULSE 75; RESP 18; TEMP 36.6; O2SAT 98
[2024-01-27] MEDS: LACTATED RINGERS 1,000 ML 150 ML IV CONT (11:53)
--- NOTE | 2024-01-27 12:09 | PM.HPGS ---
History of Present Illness History of Present Illness Consent: Risks, benefits, and alternatives have been discussed and questions answered. Patient agrees to proceed with procedure. Chief complaint: esophageal obstruction Narrative: Amada Lemus is a 73 year old female with dysphagia that had required esophageal dilatation, last time 06/2023 Review of Systems Review of Systems: All systems reviewed & are unremarkable except as noted in HPI and below PMFSH Past Medical History Medical History COPD (chronic obstructive pulmonary disease) Hyperlipidemia Peripheral vascular disease Surgical History Surgical History History of esophagogastroduodenoscopy (EGD) S/P femoral-popliteal bypass surgery Family History Family History Father Emphysema of lung Chronic obstructive pulmonary disease Sibling Lung cancer Social History Social History Smoking packs per day: 1 Smoking cigarettes per day: 20.0 Years smoked: 40 Smoking pack-years: 40.00 Smoking status: Former smoker Tobacco type: cigarettes Smoking end date: 02/16/14 Alcohol intake: current Substance use: never Substance use type: does not use Lack of Transportation: No Lack of Food: Never True Current Housing: I Have Housing Concerned About Future Housing: No Difficulty Paying Gas/Electric Bills: No Difficulty Paying for Meds: No Currently Unemployed: No Education: High School Diploma/GED Difficulty w/ Childcare or Family Care: No Living arrangements: with family Spiritual care concerns: No Meds Home Medications and Allergies Home Medications Medication Instructions Recorded Confirmed Type aspirin 81 mg tablet,delayed 81 mg PO DAILY 09/22/19 01/27/24 History release (Cory Low Dose Aspirin) calcium carbonate (Calcium 500) 500 mg PO DAILY 09/22/19 01/27/24 History ferrous sulfate 325 mg (65 mg 325 mg PO DAILY 09/22/19 01/27/24 History iron) tablet (Iron (ferrous sulfate)) rosuvastatin 20 mg tablet 20 mg PO DAILY 09/22/19 01/27/24 History Adult Multivitamin Gummies 2 gummy PO DAILY 02/27/22 01/27/24 History albuterol sulfate 90 mcg/actuation 2 puff inhalation Q4H PRN 02/27/22 01/27/24 History aerosol inhaler Shortness Of Breath budesonide 160 mcg-glycopyr 9 2 inh inhalation BID 06/13/22 01/27/24 History mcg-formot 4.8 mcg/actuation HFA inhaler (Breztri [employer]osphere) Allergies Allergy/AdvReac Type Severity Reaction Status Date / Time Penicillins Allergy Intermediate hallucinati Verified 01/27/24 11:44 ons Vital Signs Vital Signs - 24 hr 01/27/24 11:50 Temperature 98 F Pulse Rate 75 Respiratory Rate 18 Blood Pressure 145/89 H Pulse Oximetry 98 Oxygen Delivery Room Air Exam Const: General: comfortable and no acute distress HENMT: Face/Nose/Sinus: Normal nares present Eyes: General: appearance normal, both eyes and all related structures Neck: Neck: no JVD Resp: Auscultation: clear to auscultation bilaterally Cardio: Rate: regular rate Rhythm: regular rhythm GI: Inspection: non-distended GI Palp: Yes Soft to palpation Skin: General skin exam: normal color Neuro: General: gait normal Speech: normal speech Extrem: General: normal to inspection Psych: Mental Status: mental status grossly normal Assessment and Plan Assessment and plan (1) Esophageal stricture: Code(s): K22.2 - Esophageal obstruction Status: Acute Assessment and Plan: egd with possible dilation
[2024-01-27 12:26] VITALS: BP 145/74; PULSE 85; RESP 18; O2SAT 100
[2024-01-27 12:36] VITALS: BP 161/88; PULSE 70; RESP 18; O2SAT 100
[2024-01-27 12:46] VITALS: BP 148/79; PULSE 75; RESP 18; O2SAT 100
== END 2024-01-27 12:59 | disposition home or self-care (01) ==
PROVIDERS: PCP Internal Medicine; Visit Provider Internal Medicine Gastroenterology
PROC: 0DJ08ZZ Inspection of Upper Intestinal Tract, Via Natural or Artificial Opening Endoscopic (ICD-10-PCS; CPT 43235; principal; 2024-01-27 13:00)
DX: K22.2 Esophageal obstruction (principal); D13.1 Benign neoplasm of stomach; K29.70 Gastritis, unspecified, without bleeding; E78.5 Hyperlipidemia, unspecified; J44.9 Chronic obstructive pulmonary disease, unspecified; I73.9 Peripheral vascular disease, unspecified; Z79.82 Long term (current) use of aspirin; Z79.51 Long term (current) use of inhaled steroids; Z98.890 Other specified postprocedural states; Z87.891 Personal history of nicotine dependence; Z80.1 Family history of malignant neoplasm of trachea, bronchus and lung
CPT/HCPCS: 43239; 43249; 88305; C1726; J2704; J7120

== ENCOUNTER 2024-02-24 09:39 | Emergency (ER) | payer MEDICARE, SELFPAY ==
--- NOTE | ~2024-02-24 | XR_ITS ---
XR chest 1V portable Ordering provider: Gonzales Park MD History: 73 years Female with . SOB . Comparison: June 30, 2022 FINDINGS: MEDIASTINUM: The cardiac silhouette is not enlarged. LUNGS: No effusions or pneumothorax. Fibrotic changes in the right lung base. Possible superimposed pneumonitis cannot be excluded. Emphys ematous changes of the lungs. OTHER: No free air under the diaphragm. IMPRESSION: Fibrotic changes in the right lung base. Superimposed pneumonitis cannot be excluded. Reviewed, dictated and finalized at location A. IMPRESSION: Fibrotic changes in the right lung base. Superimposed pneumonitis cannot be exc luded.
[2024-02-24 09:45] VITALS: BP 155/87; PULSE 109; RESP 19; TEMP 36.9; O2SAT 97
--- NOTE | 2024-02-24 09:45 | ECG_ITS ---
Test Date: 2024-02-24 09:57:20 Measurements Intervals [place] Rate: 104 P: 82 AR: 168 QRS: 89 QRSD: 94 T: 81 QT: 326 QTc: 430 Interpretive Statements SINUS TACHYCARDIA POSSIBLE LEFT ATRIAL ENLARGEMENT [-0.1mV P WAVE IN V1/V2] NONSPECIFIC ST ABNORMALITY ABNORMAL ECG No previous ECG available for comparison Electronically Signed On 02-24-2024 10:48:54 CDT by Srini Aviles M.D.
[2024-02-24 09:52] VITALS: PULSE 106
[2024-02-24 09:54] VITALS: O2SAT 98
[2024-02-24 10:08] LABS: Basophils Absolute Auto 0.1 K/mm3 (0.0-0.1); Basophils Percent Auto 0.4 % (0.2-1.2); Hematocrit 50.9 % (37.0-47.0); Hemoglobin 16.9 g/dL (12.0-15.0); Immature Granulocyte Absolute 0.17 K/mm3 (0.00-0.031); Immature Granulocyte Percent A 0.7 % (0-0.5); Lymphocytes Absolute Auto 2.28 K/mm3 (0.9-3.2); Lymphocytes Percent Auto 9.1 % (18.3-44.2); Mean Corpuscular HGB Conc 33.2 g/dl (32-36); Mean Corpuscular Hemoglobin 28.5 pg (26-34); Mean Platelet Volume 10.2 fl (7.4-10.4); Monocytes Absolute Auto 2.6 K/mm3 (0.1-0.6); Monocytes Percent Auto 10.4 % (2.6-8.5); Neutrophils Absolute Auto 19.9 K/mm3 (1.3-6.7); Neutrophils Percent Auto 79.4 % (45.5-73.1); Platelet Count Result 385 k/mm3 (150-375); Red Blood Count 5.92 M/mm3 (4.2-5.4); Red Cell Distribution Width 14.7 % (11.5-14.5); White Blood Count 25.1 K/mm3 (4.5-10.0)
--- NOTE | 2024-02-24 10:19 | ED.GENADULT ---
HPI - General Adult General Chief complaint: Shortness of Breath/Dyspnea Stated complaint: shortness of breath Time Seen by Provider: 02/24/24 09:43 History of Present Illness HPI narrative: 73-year-old female history of COPD presenting to the emergency department for evaluation for worsening shortness of breath. Patient states she did quit smoking approximately 10 years ago. 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 Patient states since she has had worsening shortness of breath. Patient has been using her albuterol with minimal improvement. Upon arrival emergency department patient does not appear to be any significant distress but does report some shortness of breath. Patient states her shortness breath is worsened with exertion. Patient denies any associated chest pain with this. Related Data Home Medications Medication Instructions Recorded Confirmed calcium carbonate (Calcium 500) 500 mg PO DAILY 09/22/19 02/24/24 ferrous sulfate 325 mg (65 mg 325 mg PO DAILY 09/22/19 02/24/24 iron) tablet (Iron (ferrous sulfate)) rosuvastatin 20 mg tablet 20 mg PO DAILY 09/22/19 02/24/24 Adult Multivitamin Gummies 2 gummy PO DAILY 02/27/22 02/24/24 albuterol sulfate 90 mcg/actuation 2 puff inhalation Q4H PRN 02/27/22 02/24/24 aerosol inhaler Shortness Of Breath budesonide 160 mcg-glycopyr 9 2 inh inhalation BID 06/13/22 02/24/24 mcg-formot 4.8 mcg/actuation HFA inhaler (Breztri Aerosphere) Allergies Allergy/AdvReac Type Severity Reaction Status Date / Time Penicillins Allergy Intermediate hallucinati Verified 02/24/24 09:40 ons Review of Systems Review of Systems: All systems reviewed & are unremarkable except as noted in HPI and below PMFSH Past Medical History Medical History COPD (chronic obstructive pulmonary disease) Hyperlipidemia Peripheral vascular disease Surgical History Surgical History History of esophagogastroduodenoscopy (EGD) S/P femoral-popliteal bypass surgery Family History Family History Father Emphysema of lung Chronic obstructive pulmonary disease Sibling Lung cancer Social History Social History Smoking packs per day: 1 Smoking cigarettes per day: 20.0 Years smoked: 40 Smoking pack-years: 40.00 Smoking status: Former smoker Tobacco type: cigarettes Smoking end date: 02/16/14 Alcohol intake: current Substance use: never Substance use type: does not use Lack of Transportation: No Lack of Food: Never True Current Housing: I Have Housing Concerned About Future Housing: No Difficulty Paying Gas/Electric Bills: No Difficulty Paying for Meds: No Currently Unemployed: No Education: High School Diploma/GED Difficulty w/ Childcare or Family Care: No Living arrangements: with family Spiritual care concerns: No Exam Narrative: APPEARANCE: Well appearing, no pain, no distress, well-nourished. HEAD: normocephalic, atraumatic. EYES: PERRLA/EOMI, conjunctivae clear. NOSE: Normal no drainage EARS:TMS clear with good light reflex. THROAT: Pharynx clear, no exudate. NECK: Supple. No adenopathy, no masses. RESPIRATORY: Airway patent, respirations nonlabored. Clear to auscultation bilaterally, no rales, rhonchi, wheezing. CARDIOVASCULAR: Regular rate and rhythm without murmurs rubs or gallops. ABDOMINAL: Soft, nontender, nondistended, normal bowel sounds MUSCULOSKELETAL: Moves all extremities. Strength/ROM intact, No edema, No calf tenderness. NEURO: Alert. Cranial nerves II through XII intact. Grossly intact SKIN: Warm, dry. Normal Color Course Vital Signs Vital signs: Vital Signs Temperature 98.4 F 02/24/24 09:45 Pulse Rate 109 H 02/24/24 09:45
[2024-02-24 10:28] VITALS: PULSE 99; RESP 16; O2SAT 94
[2024-02-24] MEDS: IPRATROPIUM BR 0.02% INH SOLN 0.5 MG/2.5 ML VIAL 1 MG INHALATION (10:28)
[2024-02-24] MEDS: ALBUTEROL SULFATE NEB 2.5 MG/3 ML INH 10 MG INHALATION (10:28)
[2024-02-24 10:47] LABS: NT Pro B Type Natriuretic Pept 748 pg/mL (19.9-100)
[2024-02-24 10:49] LABS: Influenza A QL RT-PCR Negative (Negative); Influenza B QL RT-PCR Negative (Negative); RSV RNA, RT-PCR Negative (Negative); SARS-CoV-2 RNA PCR Negative (Negative)
[2024-02-24 10:55] LABS: Alanine Aminotransferase 19 U/L (6-35); Albumin Level 4.4 g/dL (3.5-5.1); Alkaline Phosphatase 110 U/L (38-126); Anion Gap 11 mmol/L (4-12); Aspartate Amino Transferase 27 U/L (14-36); Bilirubin,Total 1.1 mg/dL (0.2-1.3); Blood Urea Nitrogen 13 mg/dL (7-17); Calcium 9.8 mg/dL (8.4-10.2); Carbon Dioxide 26 mmol/L (22-30); Chloride 99 mmol/L (98-107); Estimated CRCL calculation 47 ml/min; Estimated Glomerular Filt Rate > 60; Glucose 138 mg/dL (65-110); Potassium 3.8 mmol/L (3.4-5.0); Sodium 136 mmol/L (137-145)
[2024-02-24 11:38] VITALS: PULSE 115; RESP 20
[2024-02-24] MEDS: AZITHROMYCIN 250 MG TABLET 500 MG PO (11:40)
[2024-02-24] MEDS: AMOXICILLIN/CLAVULANATE K 875-125 MG TAB 1 TABLET PO (11:40)
[2024-02-24] MEDS: predniSONE 20 MG TABLET 40 MG PO (11:40)
== END 2024-02-24 11:55 | disposition home or self-care (01) ==
PROVIDERS: Emergency Provider Emergency Medicine; PCP Internal Medicine
DX: J44.9 Chronic obstructive pulmonary disease, unspecified (principal); Z20.822 Contact with and (suspected) exposure to COVID-19; E78.5 Hyperlipidemia, unspecified; Z87.891 Personal history of nicotine dependence
CPT/HCPCS: 36415; 71045; 80053; 83880; 85025; 87637; 93005; 94640; 99284; A9270; J7512

== ENCOUNTER 2024-04-24 14:38 | Emergency (ER) | payer MEDICARE, SELFPAY ==
--- NOTE | ~2024-04-24 | XR_ITS ---
EXAMINATION: XR finger 2nd RT min 2V DATE: 04/24/2024 15:21 INDICATION: Right hand second digit injury. TECHNIQUE: 3 views of right hand second digit were obtained. COMPARISON: None. FINDINGS: There is radial angulation of second distal phalanx with respect to the middle phalanx. No fracture. There is severe osteoarthritis of second distal interphalangeal joint and mild osteoarthrit is of second metacarpophalangeal joint. IMPRESSION: 1. Polyarticular osteoarthritis. Reviewed, dictated and finalized at location A. NESS OPERATIONS ANALYST
[2024-04-24 14:39] VITALS: BP 149/89; PULSE 92; RESP 20; TEMP 36.3; O2SAT 95
--- NOTE | 2024-04-24 15:19 | ED_ITS ---
HPI - Extremity Injury (Upper) General Chief Complaint: Extremity Injury, Upper Stated Complaint: rt finger injury Time Seen by Provider: 04/24/24 15:05 Source: patient Mode of arrival: ambulatory Limitations: no limitations History of Present Illness HPI narrative: Patient is a 73-year-old female who presents the ED with report of a laceration to her right 2nd digit. Patient reports she was feeding squirrels o utside her house today and hit her hand on the metal door frame. Sustained a laceration to her R 2nd digit near her MCP joint. No active bleeding. No numbness. Tetanus UTD. No other injuries. Related Data Home Medications ?Medication ?Instructions ?Recorded ?Confirmed ?Last Taken ?Type calcium carbonate (Calcium 500) 500 mg PO DAILY 09/22/19 02/24/24 02/23/24 History ferrous sulfate 325 mg (65 mg 325 mg PO DAILY 09/22/19 02/24/24 02/23/24 History iron) tablet (Iron (ferrous sulfate)) rosuvastatin 20 mg tablet 20 mg PO DAILY 09/22/19 02/24/24 02/23/24 History Adult Multivitamin Gummies 2 gummy PO DAILY 02/27/22 02/24/24 02/23/24 History albuterol sulfate 90 mcg/actuation 2 puff inhalation Q4H PRN 02/27/22 02/24/24 02/23/24 History aerosol inhaler Shortness Of Breath budesonide 160 mcg-glycopyr 9 2 inh inhalation BID 06/13/22 02/24/24 02/23/24 History mcg-formot 4.8 mcg/actuation HFA inhaler (Breztri Aerosphere) Allergies Allergy/AdvReac Type Severity Reaction Status Date / Time Penicillins Allergy Intermediate hallucinati Verified 02/24/24 09:40 ons Review of Systems Review of Systems: All systems reviewed & are unremarkable except as noted in HPI. All systems reviewed & are unremarkable except as noted in HPI and below PMFSH Past Medical History Medical History Hyperlipidemia COPD (chronic obstructive pulmonary disease) Peripheral vascular disease Surgical History Surgical History S/P femoral-popliteal bypass surgery History of esophagogastroduodenoscopy (EGD) Family History Family History Father Emphysema of lung Chronic obstructive pulmonary disease Sibling Lung cancer Social History Social History Smoking packs per day: 1 Smoking cigarettes per day: 20.0 Years smoked: 40 Smoking pack-years: 40.00 Smoking status: Former smoker Tobacco type: cigarettes Smoking end date: 02/16/14 Alcohol intake: current Substance use: never Substance use type: does not use Lack of Transportation: No Lack of Food: Never True Current Housing: I Have Housing Concerned About Future Housing: No Difficulty Paying Gas/Electric Bills: No Difficulty Paying for Meds: No Currently Unemployed: No Education: High School Diploma/GED Difficulty w/ Childcare or Family Care: No Living arrangements: with family Spiritual care concerns: No Exam Narrative: GENERAL: Well appearing, thin, non-toxic, in no acute distress. HEAD: Normocephalic, atraumatic. RESPIRATORY: Airway patent, respirations nonlabored. CARDIOVASCULAR: Regular rate and rhythm. Radial pulses strong and easily palpable. MUSCULOSKELETAL: Moves all extremities. No gross deformities. Full ROM of R hand/fingers. SKIN: Warm, dry, normal color. Approx 2cm laceration just distal from 2nd mcp joint of R hand, no active bleeding. There is tendon visible through laceration but appears intact. Sensation intact. Capillary refill intact. NEURO: A&O X3. Speech clear. No ataxic movements. PSYCHIATRIC: Appropriate mood and affect. Normal interaction. Course Vital Signs Vital signs: Vital Signs Temperature 97.3 F L 04/24/24 14:39 Pulse Rate 92 04/24/24 14:39 Respiratory Rate 20 04/24/24 14:39 Blood Pressure 149/89 H 04/24/24 14:39 Pulse Oximetry 95 04/24/24 14:39 Oxygen Delivery Room Air 04/24/24 14:39 Temperature 97.3 F L 04/24/24 14:39 Pulse Rate 92 04/24/24 14:39 Respiratory Rate 20 04/24/24 14:39 Blood Pressure 149/89 H 04/24/24 14:39 Pulse Oximetry 95 04/24/24 14:39 Oxygen Delivery Room Air 04/24/24 14:39 Procedures Laceration Laceration 1: Date: 04/24/24 Time: 16:00 Site: hand Side (If applicable): right (2nd digit) Size (cm): 2 Description: linear Depth: simple, single layer Local Anesthetic: lidocaine 1% Amount of anesthesia used (mL): 5 Pre-repair: wound explored and irrigated ====== Skin Level ====== Skin layer closed with: nylon Size (cm): 4-0 Number of sutures: 5 Technique: simple, interrupted ====== Subcutaneous Layer ====== ====== Muscle Layer ====== ====== Tendon Layer ====== MDM - Extremity Injury (Upper) MDM Narrative Medical decision making narrative: Lac to right 2nd digit. Neurovascularly intact. No evidence of tendon injury. Full range of motion. Tetanus up-to-date. X-ray negative. Laceration repaired without complications. Patient given wound care instructions and reasons to return. Medical Records Attestation: I reviewed the patient's medical records. Imaging Data Attestation: I personally reviewed and interpreted this imaging study as follows: Radiologist's impression: ITS Impressions Finger X-Ray 04/24/24 15:35 IMPRESSION: 1. Polyarticular osteoarthritis. Discharge Plan Discharge Clinical Impression: Laceration of finger of right hand Qualifiers: Encounter type: initial encounter Finger: index finger Damage to nail status: without damage Foreign body presence: without foreign body Qualified Code(s): S61.210A - Laceration without foreign body of right index finger without damage to nail, initial encounter Patient Disposition: Home, Self-Care Condition: Stable Instructions: Antibiotic Form, Care For Your Stitches (ED), Laceration (ED) Additional Instructions: Return to the ED or visit an urgent care or your PCP for follow-up and wound check/suture removal in 10 to 14 days. Keep the wound dry for 24 hours. You may remove the bandage after 24 hours and wash with simple soap and water, but do not scrub. Return to the ED if you experience uncontrolled bleeding, fever, chills, pus-like drainage, or redness/swelling/warmth surrounding the wound, as these could be signs of an infection. Patient Language: Ukrainian Prescriptions: No Action ferrous sulfate [Iron (ferrous sulfate)] 325 mg (65 mg iron) Tablet 325 mg PO DAILY calcium carbonate [Calcium 500] 500 mg calcium (1,250 mg) Tablet,Chewable 500 mg PO DAILY rosuvastatin 20 mg tablet 20 mg PO DAILY Adult Multivitamin Gummies 2 gummy PO DAILY albuterol sulfate 90 mcg/actuation HFA aerosol inhaler 2 puff INHALATION Q4H PRN (Reason: Shortness Of Breath) Breztri Aerosphere 160-9-4.8 mcg/actuation HFA aerosol inhaler 2 inh INHALATION BID amoxicillin-pot clavulanate 875-125 mg tablet 1 tablet PO Q12H 7 Days Qty: 14 0RF azithromycin 250 mg tablet See Rx Instructions .ROUTE .COMPLEX Qty: 6 0RF Rx Instructions: For 250 mg dose pack: take 500 mg today (day 1), then 250 mg for 4 days (days 2-5) prednisone 50 mg tablet 50 mg PO DAILY 5 Days Qty: 5 0RF Follow-up/Referrals: Yoel,MD Samy [Primary Care Provider] - Time of Disposition: 16:06
== END 2024-04-24 16:35 | disposition home or self-care (01) ==
LOC: ANHED 15:47
PROVIDERS: Emergency Provider Physician Assistant; PCP Internal Medicine
DX: S61.210A Laceration without foreign body of right index finger without damage to nail, initial encounter (principal); J44.9 Chronic obstructive pulmonary disease, unspecified; I73.9 Peripheral vascular disease, unspecified; E78.5 Hyperlipidemia, unspecified; Z87.891 Personal history of nicotine dependence; M19.041 Primary osteoarthritis, right hand; W26.8XXA Contact with other sharp object(s), not elsewhere classified, initial encounter; Z79.899 Other long term (current) drug therapy
CPT/HCPCS: 12001; 73140; 99283; J2003

== ENCOUNTER 2024-07-20 00:35 | Day surgery (SDC) | payer MEDICARE, SELFPAY ==
[2024-07-08 09:14] VITALS: BMI 16.3
--- OUTSIDE RECORDS SUMMARY | 2024-07-20 00:38 | XMS_ITS | Clinical Summary ---
Author Organization [facility] Address [address] [place] [address] Care Team Providers Care Molecular Technologist Name Role Phone Unavailable Primary Care Provider Unavailabl e Social History Tobacco Use Types Packs/Day Years Used Date Smoking Tobacco: Never Assessed Comments Unknown Sex and Gender Information Value Date Recorded Sex Assigned at Not on file Legal Sex Female 7:33 PM CDT Gender Identity Not on file Sexual Orientation Not on file Plan of Treatment Health Maintenance Due Date Last Done Comments Colorectal Cancer Screening Colonoscopy (10 Years) 1948 Hepatitis C 1966 DTaP, Tdap and Td Vaccines ( 1 - Tdap) 12/20/1967 Zoster Vaccines (1 of 2) 1998 Dexa Scan (General) 2013 Pneumococcal Vaccine: 65+ Ye ars (1 of 1 - PCV) 2013 RSV Immunization or 60+ Years (1 - 1-dose 75+ series) 12/20/2023 COVID-19 Vaccine ( - 2023-2 5 season) 2024 Influenza Adult (#1) 2024 Meningococcal B Vaccine Aged Out No l onger eligible based on patient's age to complete this topic Meningococcal Vaccine Aged Out No panfilo romeo eligible based on patient's age to complete this topic RSV Immunizations Under 20 Months Aged Out No longer eligible based on patient's age to complete this topic
--- OUTSIDE RECORDS SUMMARY | 2024-07-20 00:38 | XMS_ITS | Continuity of Care Document ---
Author Organization [facility] Address [address] [place] [address] Phone Care Team Providers Care Acid Purifier Name Role Phone Neela Ross Unavailable Unavailable Allergies, Adverse Reactions, Alerts Substance Reaction Status Criticality penicillin G Anaphylaxis Active No Information Medications Medication Instructions Dosage Effective Dates (start - stop) Status Comments ALBUTEROL 90MCG PUFFS 2 QID - Acti ve GUAIFENESIN 600/PSE 120 600-12 1 BID - Active LEVAQUIN 500MG TABS 1 QD 005 - No Longer Active Advance Directives Directive Yes / No Effective Date File Name No Information Encounters Encounter Description Practice Location Reason(s) For Visit Diagnoses Date Provider Providers Copied on Encounter [facility], [address], [place], [place], [address], tel:[phone] [facility] No Information 8[address] Ravinder Keita. [address], [place], [id number] . tel: [phone] [facility], [address], [place], [place], [address], [place] tel:[phone] [facility] COUGHACUTE URI NOS 3-200 5 Ravinder Keita. [address], [place], [id number] . tel: [phone] [facility], [address], [place], [place], [address], tel:[phone] [facility] DYSPHAGIATOBACCO USE DISORDERABNORMAL LOSS OF WEIGHT Dec- 8200 3 Juju Adler . [address], [address], [place], [place], [address] , [place]. tel: [phone] [facility], [address], [place], [place], [address], [place] tel:[phone] [facility] GYNECOLOGIC EXAMINATION Sep-2 1200 1 Juju Fountainzabeth . [address], [address], [place], [place], [address] , [place]. tel: [phone] Family History Family Member Type Diagnosis Age At Onset No Information Payers Payer name Insurance type Covered libertarian ID Authoriza tion(s) No Information Social History Type Description Quantity Date Captured Comments Sex Female Smoking Status No Information Chief Complaint And Reason For Visit No Information Reason For Referral Reason For Referral No Information History Of Present Illness Encounter Date Complaint History Of Prese nt Illness No Information Functional Status Date Functional Assessmen t No Information Instructions Date Instruction Additional Infor mation No Information Assessments Type Assessment Date No Information Patient Care Teams Name Effective Dates (start - stop) Status Members No Information
--- OUTSIDE RECORDS SUMMARY | 2024-07-20 00:38 | XMS_ITS | CONTINUITY OF CARE DOCUMENT ---
Author Name ty, ty Address Unknown Organization [facility] Address [address] [place] [address] Phone [phone] Care Team Providers Care Switch Operator Name Role Phone Ronaldo Espinoza MD Unavailable [phone] Rigoberto Quarles Unavailable Unavailable YOEL VALERO MD Unavailable PROBLEMS Condition Status Date Provider Notes Diastolic dysfunction;nml ef 14 active Ronaldo Espinoza MD Tobacco use, quit active Ronaldo Espinoza MD Repair of esophageal stricture;by gi active Ronaldo Espinoza MD PVD;clear for stent per vasc surgeon active Ronaldo Espinoza MD ? HTN borderline;will observe completed - Ronaldo Espinoza MD COPD active Ronaldo Espinoza MD Carotid artery disease;mild plaquiing 14 active Ronaldo Espinoza MD r/o Ischemia;neg nuc 14 active Ronaldo burns MD ENCOUNTERS Date Type Provider Location Encounter Diag nosis - In-person encounter Office Visit Ronaldo Espinoza MD [facility] Tobacco use, quit - In-person encounter Office Visit Ronaldo Espinoza MD [facility] PVD;clear for stent per vasc surgeon? HTN borderline;will observeCOPDCarotid artery disease;mild plaquiing 14r/o Ischemia;neg nuc 14 - In-person encounter Office Visit Ronaldo Espinoza MD [facility] Tobacco use, quitRepair of esophageal stricture;by giPVD;clear for stent per vasc surgeonCOPD VITAL SIGNS Date Observation Value Provider blood pressure, diastolic 88 mm[Hg] Jerrod Jasso blood pressure, systolic 140 mm[Hg] Quynh Jasso pulse rate 94 /min Roni Pro myesha oxygen saturation, oximetry 96 % Roni Patelenson respiratory rate E&M 16 /min Shania thrasher Jasso Body Mass Index (Ratio) 17.01 kg/m2 Zandra Garibay Jasso weight E&M 105.4 [lb_av] Roni hidalgoluís Body Mass Index (Ratio) 16.95 kg/m2 Hannahkaty alonso Matteo blood pressure, diastolic 80 mm[Hg] An mouna Matteo blood pressure, systolic 140 mm[Hg] Hannah johnsonjanette Felipe pulse rate 90 /min Hannahatrclive Felipe oxygen saturation, oximetry 97 % Hannahwinclive Felipe respiratory rate E&M 16 /min Hannahatri s Matteo weight E&M 105 [lb_av] [facility] Body Mass Index (Ratio) 16.78 kg/m2 Hannahkaty alonso Matteo blood pressure, diastolic 95 mm[Hg] An mouna [facility] blood pressure, systolic 159 mm[Hg] Hannah johnsons Matteo pulse rate 89 /min [facility] oxygen saturation, oximetry 97 % [facility] respiratory rate E&M 17 /min Hannahatri s Matteo weight E&M 104 [lb_av] [facility] height E&M 66 [in_i] Jason Felipe ALLERGIES Allergy Name Onset Date Reaction Criticality Status PCN High Criticality active HISTORY OF MEDICATION USE Medication Status Instructions Dates Provider Indications Com ments CALCIUM CARBONATE 600 MG ORAL TABLET active ONE TAB BY MOUTH DAILY Roni Jasso VITAMIN E 400 UNIT ORAL CAPSULE active ONE TAB. DAILY Roni Jasso VITAMIN B-12 1000 MCG ORAL TABLET active One tablet daily Roni Jasso MULTIVITAMINS ORAL CAPSULE active ONE TAB. DAILY Roni aJsso ASPIRIN 81 MG ORAL TABLET active ONE TAB. DAILY 6 Ronaldo Espinoza MD PRAVASTATIN SODIUM 20 MG ORAL TABLET active one a day 6 Ronaldo Espinoza MD SOCIAL HISTORY Date Observation Value Provider quit smoking, stage quit Ronaldo tate MD social history reviewed E&M revi ewed - no changes required Ronaldo Espinoza MD smoking, year quit 2013 Roni Jasso smoking, date started 1969 Arnulfo Jasso smoking history, tot al pack/day 7 cig Roni Jasso cigarette use yes Roni cruz smoking status Former smoker Roni Norwood social history reviewed E&M revi ewed - no changes required Ronaldo Espinoza MD smoking/tobacco cess ation, patient education and counseling yes Ronaldo Espinoza MD social history reviewed E&M revi ewed - no changes required Ronaldo Espinoza MD smoking, date started 1970 Aneatr is Matteo smoking history, tot al pack/day 7 cig Anewinis Matteo cigarette use yes Jason Felipe smoking status Current every day smoker A emanuel Felipe FAMILY HISTORY Family Member Condition Father Negative FH of Diabe rossi, Hypertension, or Coronary Artery Disease Mother Negative FH of Diabe rossi, Hypertension, or Coronary Artery Disease Full Brother Family History of Karishma ng Cancer: INSURANCE PROVIDERS Payer name Policy type / Coverage type [place] [employer] ID [employer] Other [id number] TREATMENT PLAN Date Name Performer Cardiology Ronaldo Espinoza MD Cardiology Ronaldo Espinoza MD Cardiology Ronaldo Espinoza MD Cardiology Ronaldo Espinoza MD Cardiology Ronaldo Espinoza MD Cardiology Ronaldo Espinoza MD new patient visit: O rders: C arotid Duplex Bilateral (CPT-98347) Ronaldo Espinoza MD new patient visit: O rders: F ull PFT (*) S TR - Adenosine (50852) C omplete Echo (CPT-05406) X -Ray, Chest, PA & Lateral (CPT-01695) C arotid Duplex Bilateral (CPT-54987) Ronaldo Espinoza MD new patient visit: O rders: F ull PFT (*) S TR - Adenosine (52729) C omplete Echo (CPT-26205) X -Ray, Chest, PA & Lateral (CPT-69684) C arotid Duplex Bilateral (CPT-87167) Ronaldo Espinoza MD new patient visit: O rders: F ull PFT (*) S TR - Adenosine (88404) C omplete Echo (CPT-47236) X -Ray, Chest, PA & Lateral (CPT-35652) C arotid Duplex Bilateral (CPT-37303) Ronaldo Espinoza MD new patient visit: H er updated medication list for this problem includes: Aspirin 81 Mg Tabs (Aspirin) ..... One tab. daily Orders: C arotid Duplex Bilateral (CPT-21597) Ronaldo Espinoza MD Date Name DLCO - 69616 FRC - 65549 FVC - 54365 Arterial - SENSILASE DLCO Order - [id number] FR Order - 13430 FVC Order - [id number] Carotid Duplex Bilat eral X-Ray, Chest, PA & L ateral Complete Echo STR - Adenosine Full PFT HISTORY OF PROCEDURES Procedure Date Procedure Name Provider Procedure Notes S tatus BLOOD COUNT HEMOGLOBIN Ronaldo Espinoza MD completed FVC - 52916 Ronaldo Espinoza MD complet ed FRC - 77694 Ronaldo Espinoza MD complet ed DLCO - 14332 Ronaldo Espinoza MD comple silvana EKG Ronaldo Espinoza MD complete d SNOMED-CT: [id number] Current Medications Documented Ronaldo Espinoza MD completed BLOOD COUNT HEMOGLOBIN Ronaldo Espinoza MD completed EKG Ronaldo Espinoza MD complete d
--- OUTSIDE RECORDS SUMMARY | 2024-07-20 00:38 | XMS_ITS | Data Portability ---
Author Organization [facility] Address [address] [place] [address] Care Team Providers Care Hebrew Cantor Name Role Phone YOEL DIALLO Primary Care Provider [phone] Assessment Encounter Date Assessment Date Assessment LastModified by Organization Details LastModified Time 10/16/2023 10/16/2023 COPD no cough or wheezing or shortness of breath hyperlipidemia taking her rosuvastatin. History of esophageal stricture she has not had any symptoms referable to recurrence peripheral arterial occlusive disease no claudication history of colon polyps she could use more fiber in her diet. Old records so we can see about immunizations and screenings and follow up with me in 4 to 6 months Not available 11/10/2023 19:04:44 07/13/2024 07/13/2024 continue current therapy blood work ordered colon cancer screening declined eating healthy food care instructions start pantoprazole 40 mg daily she does not tolerate omeprazole follow up 4 months [email or web address] Not available 07/13/2024 13:56:10 Plan of Treatment Reminders Order Date Submit Date Provider Last Modified By Organization Details Last Modified Time Details Appointments ANY 15 2024 09:15A Khadijah Diallo MD Not available Not available Not available Lab CBC w/ auto diff 2024 025 [email or web address] [facility], [address] [facility] [address], [place], [address], 07/13/2024 11:58:12 CMP, serum or plasma 2024 025 [id number] [facility], [address] [facility] [address], [place], [address], 07/13/2024 11:58:12 lipid panel, serum 2024 025 [facility], [address] [place] [address] 2, [place], [address], 07/13/2024 11:58:12 CBC w/ auto diff 2023 024 [facility], [address] [place] [address], [facility] [address], [place], [address], 10/17/2023 06:22:51 lipid panel, serum 2023 024 [facility], [address] [place] [address], [facility] [address], [place], [address], 10/17/2023 06:22:50 CMP, serum or plasma 2023 024 [facility], [address] [place] [address], [facility] [address], [place], [address], 10/17/2023 06:22:51 Referral None recorded. Procedures None recorded. Surgeries None recorded. Imaging None recorded. Medication Orders pantopraz ole 40 mg tablet,de layed release 2024 025 [id number] [facility] #[id number], [address] [facility], [place], [address], 07/13/2024 11:58:12 Patient TargetsNo targets recorded. Patient Instructions Encounter Date Encounter Id Patient Instructions Last Modified By Organization Details Last Modified Time 07/13/2024 [id number] eating healthy foods: care instructions [email or web address] Not available 07/13/2024 11:58:12 Reason for Referral None Reported. Results Created Date Observation Date Name Description Value Unit Range Abnormal Flag Note LastModifiedBy Organization Detail LastModifiedTime 10/16/19 24 10/17/2023 LIPID PANEL cholesterol, total 194 mg/dL 100-19 9 Not Available [facility] ([facility]) [address] [facility], [place], [address], 10/17/2023 06:22:50 10/16/19 24 10/17/2023 LIPID PANEL triglyceride s 66 mg/dL 0-149 Not Available [facility] ([facility]) [address] [place], [address], 10/17/2023 06:22:50 10/16/19 24 10/17/2023 LIPID PANEL HDL cholesterol 95 mg/dL >39 Not Available [facility] ([facility]) [address] [place], [address], 10/17/2023 06:22:50 10/16/19 24 10/17/2023 LIPID PANEL VLDL cholesterol osiel 12 mg/dL 5-40 Not Available [facility] ([facility]) [address] [place], [address], 10/17/2023 06:22:50 10/16/19 24 10/17/2023 LIPID PANEL LDL chol calc ([facility]) 87 mg/dL 0-99 Not Available [facility] ([facility]) [address] [place], [address], 10/17/2023 06:22:50 10/16/19 24 10/17/2023 COMP. METAB OLIC PANEL (14) glucose 85 mg/dL 70-99 Not Available [facility] ([facility]) [address] [place], [address], 10/17/2023 06:22:50 10/16/19 24 10/17/2023 COMP. METAB OLIC PANEL (14) BUN 9 mg/dL 8-27 Not Available [facility] ([facility]) [address] [place], [address], 10/17/2023 06:22:50 10/16/19 24 10/17/2023 COMP. METAB OLIC PANEL (14) creatinine 0.58 mg/dL 0.57-1 .00 Not Available [facility] ([facility]) [address] [facility] [place], [address], 10/17/2023 06:22:50 10/16/19 24 10/17/2023 COMP. METAB OLIC PANEL (14) eGFR 95 mL/mi n/1.7 3 >59 Not Available [facility] ([facility]) [address], [place], [address], 10/17/2023 06:22:50 10/16/19 24 10/17/2023 COMP. METAB OLIC PANEL (14) BUN/creatini ne ratio 16 12-28 Not Available [facility] ([facility]) [address] [facility], [place], [address], 10/17/2023 06:22:50 10/16/19 24 10/17/2023 COMP. METAB OLIC PANEL (14) sodium 142 mmol/ L 134-14 4 Not Available [facility] ([facility]) [address] [facility], [place], [address], 10/17/2023 06:22:50 10/16/19 24 10/17/2023 COMP. METAB OLIC PANEL (14) potassium 4.4 mmol/ L 3.5-5. 2 Not Available [facility] ([facility]) [address], [place], [address], 10/17/2023 06:22:50 10/16/19 24 10/17/2023 COMP. METAB OLIC PANEL (14) chloride 103 mmol/ L 96-106 Not Available [facility] ([facility]) [address] [facility] [place] [place], [address], 10/17/2023 06:22:50 10/16/19 24 10/17/2023 COMP. METAB OLIC PANEL (14) carbon dioxide, total 25 mmol/ L 20-29 Not Available [facility] ([facility]) [address] [facility] [place] [place], [address], 10/17/2023 06:22:50 10/16/19 24 10/17/2023 COMP. METAB OLIC PANEL (14) calcium 9.7 mg/dL 8.7-10 .3 Not Available [facility] ([facility]) [address] [facility] [place], [address], 10/17/2023 06:22:50 10/16/19 24 10/17/2023 COMP. METAB OLIC PANEL (14) protein, total 6.6 g/dL 6.0-8. 5 Not Available [facility] ([facility]) [address] [facility], [place], [address], 10/17/2023 06:22:50 10/16/19 24 10/17/2023 COMP. METAB OLIC PANEL (14) albumin 4.0 g/dL 3.8-4. 8 Not Available [facility] ([facility]) [address] [facility] [place], [address], 10/17/2023 06:22:50 10/16/19 24 10/17/2023 COMP. METAB OLIC PANEL (14) globulin, total 2.6 g/dL 1.5-4. 5 Not Available [facility] ([facility]) [address] [facility] [place] [place], [address], 10/17/2023 06:22:50 10/16/19 24 10/17/2023 COMP. METAB OLIC PANEL (14) A/G ratio 1.5 Not Available [facility] ([facility]) [address] [facility] [place] [place], [address], 10/17/2023 06:22:50 10/16/19 24 10/17/2023 COMP. METAB OLIC PANEL (14) bilirubin, total 0.4 mg/dL 0.0-1. 2 Not Available [facility] ([facility]) [address] [facility], [place], [address], 10/17/2023 06:22:50 10/16/19 24 10/17/2023 COMP. METAB OLIC PANEL (14) alkaline phosphatase 103 IU/L 44-121 Not Available [facility] ([facility]) [address] [facility] [place] [place], [address], 10/17/2023 06:22:50 10/16/19 24 10/17/2023 COMP. METAB OLIC PANEL (14) AST (SGOT) 19 IU/L 0-40 Not Available [facility] ([facility]) [address] [facility] [place] [place], [address], 10/17/2023 06:22:50 10/16/19 24 10/17/2023 COMP. METAB OLIC PANEL (14) ALT (SGPT) 13 IU/L 0-32 Not Available [facility] ([facility]) [address] [facility] [place] [place], [address], 10/17/2023 06:22:50 10/16/19 24 10/16/2023 CBC WITH DIFFE RENTI AL/PL ATELE T WBC 12.5 x10e3 /uL 3.4-10 .8 above high normal Not Available [facility] ([facility]) [address] [place], [address], 10/17/2023 06:22:51 10/16/19 24 10/16/2023 CBC WITH DIFFE RENTI AL/PL ATELE T RBC 5.60 x10e6 /uL 3.77-5 .28 above high normal Not Available [facility] ([facility]) [address] [place], [address], 10/17/2023 06:22:51 10/16/19 24 10/16/2023 CBC WITH DIFFE RENTI AL/PL ATELE T hemoglobin 15.6 g/dL 11.1-1 5.9 Not Available [facility] ([facility]) [address] [place], [address], 10/17/2023 06:22:51 10/16/19 24 10/16/2023 CBC WITH DIFFE RENTI AL/PL ATELE T hematocrit 48.1 % 34.0-4 6.6 above high normal Not Available [facility] ([facility]) [address] [place], [address], 10/17/2023 06:22:51 10/16/19 24 10/16/2023 CBC WITH DIFFE RENTI AL/PL ATELE T MCV 86 fL 79-97 Not Available [facility] ([facility]) [address] [place], [address], 10/17/2023 06:22:51 10/16/19 24 10/16/2023 CBC WITH DIFFE RENTI AL/PL ATELE T MCH 27.9 pg 26.6-3 3.0 Not Available [facility] ([facility]) [address] [place], [address], 10/17/2023 06:22:51 10/16/19 24 10/16/2023 CBC WITH DIFFE RENTI AL/PL ATELE T MCHC 32.4 g/dL 31.5-3 5.7 Not Available [facility] ([facility]) [address] [place], [address], 10/17/2023 06:22:51 10/16/19 24 10/16/2023 CBC WITH DIFFE RENTI AL/PL ATELE T RDW 13.8 % 11.7-1 5.4 Not Available [facility] ([facility]) [address] [place], [address], 10/17/2023 06:22:51 10/16/19 24 10/16/2023 CBC WITH DIFFE RENTI AL/PL ATELE T platelets 343 x10e3 /uL 150-45 0 Not Available [facility] ([facility]) [address] [place], [address], 10/17/2023 06:22:51 10/16/19 24 10/16/2023 CBC WITH DIFFE RENTI AL/PL ATELE T neutrophils 70 % notest ab. Not Available [facility] ([facility]) [address] [facility], [place], [address], 10/17/2023 06:22:51 10/16/19 24 10/16/2023 CBC WITH DIFFE RENTI AL/PL ATELE T lymphs 21 % notest ab. Not Available [facility] ([facility]) [address] [facility], [place], [address], 10/17/2023 06:22:51 10/16/19 24 10/16/2023 CBC WITH DIFFE RENTI AL/PL ATELE T monocytes 8 % notest ab. Not Available [facility] ([facility]) [address] [facility], [place], [address], 10/17/2023 06:22:51 10/16/19 24 10/16/2023 CBC WITH DIFFE RENTI AL/PL ATELE T eos 1 % notest ab. Not Available [facility] ([facility]) [address] [facility], [place], [address], 10/17/2023 06:22:51 10/16/19 24 10/16/2023 CBC WITH DIFFE RENTI AL/PL ATELE T basos 0 % notest ab. Not Available [facility] ([facility]) [address] [place], [address], 10/17/2023 06:22:51 10/16/19 24 10/16/2023 CBC WITH DIFFE RENTI AL/PL ATELE T neutrophils (absolute) 8.7 x10e3 /uL 1.4-7. 0 above high normal Not Available [facility] ([facility]) [address] [facility], [place], [address], 10/17/2023 06:22:51 10/16/19 24 10/16/2023 CBC WITH DIFFE RENTI AL/PL ATELE T lymphs (absolute) 2.6 x10e3 /uL 0.7-3. 1 Not Available [facility] ([facility]) [address] [facility], [place], [address], 10/17/2023 06:22:51 10/16/19 24 10/16/2023 CBC WITH DIFFE RENTI AL/PL ATELE T monocytes(ab solute) 1.0 x10e3 /uL 0.1-0. 9 above high normal Not Available [facility] ([facility]) [address] [facility], [place], [address], 10/17/2023 06:22:51 10/16/19 24 10/16/2023 CBC WITH DIFFE RENTI AL/PL ATELE T eos (absolute) 0.1 x10e3 /uL 0.0-0. 4 Not Available [facility] ([facility]) [address] [facility], [place], [address], 10/17/2023 06:22:51 10/16/19 24 10/16/2023 CBC WITH DIFFE RENTI AL/PL ATELE T baso (absolute) 0.1 x10e3 /uL 0.0-0. 2 Not Available [facility] ([facility]) [address] [facility], [place], [address], 10/17/2023 06:22:51 10/16/19 24 10/16/2023 CBC WITH DIFFE RENTI AL/PL ATELE T immature granulocytes 0 % notest ab. Not Available [facility] ([facility]) [address] [facility], [place], [address], 10/17/2023 06:22:51 10/16/19 24 10/16/2023 CBC WITH DIFFE RENTI AL/PL ATELE T immature grans (abs) 0.0 x10e3 /uL 0.0-0. 1 Not Available [facility] ([facility]) [address] [facility], [place], [address], 10/17/2023 06:22:51 10/21/02/24/2024 XR, chest , 1 view No observ ation record ed. [address], [place], [address], 02/25/2024 15:09:53 04/24/20 24 04/24/2024 XR, finge r(s) No observ ation record ed. [address], [place], [address], 05/01/2024 23:28:02 Result Notes None recorded. Problems Name Problem SNOMED Code Status Onset Date Resolution Date Notes Provider Name and Address Organization Details Recorded Time Long-term drug therapy Active 2023 CHE[place], [place] - [facility] 4 11:36:15 Hyperlipidemia 26873485 Active 2023 Emma Epps [place] null, [place] [facility] 4 11:36:16 Chronic obstructive pulmonary disease 51471048 Active 2023 Emma Epps [place] null, [place] [facility] 4 11:36:16 Stricture of esophagus 48825871 Active 2023 Yoel Diallo MD Attn: Dulce yeung,[address] [place], [address], [place] - [facility] 4 19:03:57 Polyp of colon 38328425 Active 2023 Yoel Diallo MD Attn: Dulce yeung,[address] [place], [address], [place] - [facility] 4 19:03:58 Peripheral arterial occlusive disease 613095284 Active 2023 Yoel Diallo MD Attn: Dulce yeung,[address] [place], [address], [place] [facility] 4 19:03:59 Problem Notes None recorded. Procedures Surgical History None recorded. Imaging Results Imaging Date Name Status LastModified by Organiz ation Details LastModified Time 02/24/2024 XR, chest, 1 view completed [place] [address] [facility] [address], [place], [address], 02/25/2024 15:09:53 04/24/2024 XR, finger(s) completed [address], [place], [address], 05/01/2024 23:28:02 Procedure Notes None recorded. Medical Equipment None Reported. Allergies Allergen ID Allergen Name Allergen Category Reaction Reaction Severity Criticality Documentation Date Start Date Code Code System Note Provider Name and Address Organization Details Recorded Time 17251006 Product containin g penicilli n (product) medicatio n fever hallucina tions Not available Not available Not available 10/16/2023 92057 8001 SNOMED Not Available Not Available Not Available Medications Name Sig Start Date Stop Date Status Note LastModified by Organization Details LastModified Time azithromyci n 250 mg tablet TAKE 2 TABLETS BY MOUTH TODAY, THEN TAKE 1 TABLET DAILY FOR 4 DAYS DIRECTED 07/13 completed Not Available Not Available Not Available omeprazole 40 mg capsule,del ayed release TAKE 1 CAPSULE BY MOUTH EVERY DAY 07/13 completed Not Available Not Available Not Available aspirin 81 mg tablet,nikki yed release Take 1 tablet every day by oral route. 07/13 completed Not Available Not Available Not Available pantoprazol e 40 mg tablet,nikki yed release Take 1 tablet every day by oral route. 2024 active Not Available Not Available Not Avai lable prednisone 50 mg tablet TAKE 1 TABLET BY MOUTH EVERY DAY FOR 5 DAYS 07/13 completed Not Available Not Available Not Available albuterol sulfate HFA 90 mcg/actuati on aerosol inhaler INHALE 2 PUFFS BY MOUTH EVERY 4HOURS NEEDED active Not Available Not Available No t Available amoxicillin 875 mg-potassiu m clavulanate 125 mg tablet TAKE 1 TABLET BY MOUTH EVERY 12 HOURS FOR 7 DAYS 07/13 completed Not Available Not Available Not Available rosuvastati n 20 mg tablet Take 1 tablet every day by oral route. active Not Available Not Available No t Available Breztri Aerosphere 160 mcg-9mcg-4. 8mcg/actuat ion HFA aerosol inhaler TAKE 2 PUFFS BY MOUTH TWICE A DAY active Not Available Not Available No t Available Vitals Date Recorded Body height Body mass index (BMI) Body weight Heart rate Oxygen saturation Oxygen saturation in Arterial blood by Pulse oximetry Systolic blood pressure Diastolic blood pressure Provider Name and Address Organization Details Last Updated DateTime 4 167.64 cm 15.6 kg/m2 63877.0 2 g 90 /min 97 % 97 % 130 mm[Hg] 50 mm[Hg] Cindy Fermin MA [facility] 4 10:47:59 Date Recorded Body height Body mass index (BMI) Body weight Heart rate Oxygen saturation Oxygen saturation in Arterial blood by Pulse oximetry Systolic blood pressure Diastolic blood pressure Provider Name and Address Organization Details Last Updated DateTime 5 167.64 cm 15.8 kg/m2 15815.3 3 g 75 /min 97 % 97 % 130 mm[Hg] 84 mm[Hg] Oriana Hoff MA [facility] 5 10:16:27 Social History Question Answer Notes LastModified by Organizat ion Details LastModified Time Tobacco Smoking Status Former Smoker Cindy Fermin MA null, [facility] 10/16/2023 10:45:52 What Is Your Level Of Alcohol Consumption? None Information not available 10/16/2023 Are You Blind Or Do You Have Difficulty Seeing? No Information not available 10/16/2023 Are You Deaf Or Do You Have Serious Difficulty Hearing? No Information not available 10/16/2023 What Was The Date Of Your Most Recent Tobacco Screening? 10/16/2023 Information not available 10/16/2023 What Is Your Relationship Status? Information not available 10/16/2023 How Much Tobacco Do You Smoke? 1 PPD Information not available 10/16/2023 How Many Years Have You Smoked Tobacco? 45 Information not available 10/16/2023 Sex: Female Functional Status Question Answer Note LastModified by Organization D etails LastModified Time Are you able to care for yourself? Yes Information n ot available 10/16/2023 Mental Status None recorded. Family History Nothing Reported. Medical History No medical history recorded. Gynecological HistoryNo gynecological history recorded. Obstetrics History GPAL:G 0 P 0 0 0 0 Immunizations Vaccine Type Date Status Note Provider Nam e and Address Organization Details Recorded Time zoster recombinant 4 completed Oriana Hoff [place] [place], [place] [facility] 07/13/2024 10:18:40 Influenza, split virus, quadrivalent, preservative 9 completed Oriana Hoff [place] [facility] 07/13/2024 10:18:40 Influenza, adjuvanted, trivalent, PF 8 completed Oriana Hoff [place] [facility] 07/13/2024 10:18:40 Influenza, high-dose, quadrivalent, PF 0 completed Oriana Hoff [place] [facility] 07/13/2024 10:18:40 Influenza, high-dose, quadrivalent, PF 2 completed Oriana Hoff [place] [facility] 07/13/2024 10:18:40 Influenza, high-dose, quadrivalent, PF 1 completed Oriana Hoff [place] [facility] 07/13/2024 10:18:40 Influenza, adjuvanted, quadrivalent, PF 3 completed Oriana Hoff [place] [facility] 07/13/2024 10:18:40 COVID-19, mRNA, LNP-S, PF, 100 mcg/0.5mL dose or 50 mcg/0.25mL dose 1 completed [place] [facility] 07/13/2024 10:18:40 COVID-19, mRNA, LNP-S, PF, 100 mcg/0.5mL dose or 50 mcg/0.25mL dose 1 completed Oriana Hoff [place] [facility] 07/13/2024 10:18:40 COVID-19, mRNA, LNP-S, PF, 100 mcg/0.5mL dose or 50 mcg/0.25mL dose 1 completed Oriana Hoff [place] [facility] 07/13/2024 10:18:40 Pneumococcal conjugate PCV20, polysaccharide [id number] conjugate, adjuvant, PF 3 completed [place] [facility] 07/13/2024 10:18:40 COVID-19, mRNA, LNP-S, PF, gavin-sucrose, 30 mcg/0.3 mL 3 completed Oriana Hoff [facility] null, [place] - [facility] 07/13/2024 10:18:40 pneumococcal polysaccharide PPV23 3 completed Oriana Hoff [place], [place] [facility] 07/13/2024 10:18:40 Pneumococcal conjugate PCV 13 0 completed Oriana Hoff [place] [place], [place] [facility] 07/13/2024 10:18:40 Influenza, high-dose, trivalent, PF 7 completed Oriana Hoff [place] tda, [place] [facility] 07/13/2024 10:18:40 Influenza, split virus, trivalent, preservative 4 completed Oriana Hoff [place] [facility] 07/13/2024 10:18:40 Influenza, split virus, trivalent, PF 6 completed Oriana Hoff [place] [facility] 07/13/2024 10:18:40 Influenza, split virus, trivalent, PF 7 completed Oriana Hoff [place] [facility] 07/13/2024 10:18:40 Influenza, split virus, trivalent, PF 5 completed Oriana Hoff [place] [facility] 07/13/2024 10:18:40 Past Encounters Encounter ID Performer Location Encounter Start Date Encounter Closed Date Diagnosis/Indication Diagnosis SNOMED-CT Code Diagnosis ICD10 Code Diagnosis Note [id number] Yoel Diallo MD [facility] (Adult Med) [address] [place] [address] 10/16/2023 10:38:01 10/16/2023 11:51:53 Chronic obstructive pulmonary disease 16563295 J44.9 Hyperlipidemia 66463733 E78.5 Long-term drug therapy 276695594 Z79.899 Peripheral arterial occlusive disease 230588680 I73.9 Polyp of colon 46134768 K63.5 Stricture of esophagus 56398910 K22.2 [id number] [facility] [address] [place] [address] 07/13/2024 09:55:31 07/13/2024 11:18:14 Body mass index less than 20 724761383 Z68.1 Underweight 178458042 R6 3.6 Hyperlipidemia 90379711 E78.5 Long-term drug therapy 460278551 Z79.899 Gastroesop hageal reflux disease without esophagitis 901525717 K21.9 Peripheral arterial occlusive disease 081730312 I73.9 Chronic ob structive pulmonary disease 32816518 J44.9 Stricture of esophagus 58474060 K22.2 Colon canc er screening declined 6672407451 9109 Z53.20 Health Concerns Section Related Observation LastModified by Organization Detai ls LastModified Time None Recorded Concern Status LastModified by Organization Details LastModified Time None Recorded Advance Directives Directive None Recorded Payers Encounter Date Sequence Insurance Name Policy Number Policy Go Covered Member ID Go Member ID Guarantor Name 10/16/2023 1 [facility] (PPO) [id number] Amada Lemus [id number] Amada Lemus 10/16/2023 1 [place] Amada Lemus [id number] Amada Lemus 07/13/2024 1 [place] Amada Lemus [id number] Amada Lemus 07/13/2024 2 [employer] (MEDICARE SUPPLEMENT) Amada Lemus [id number] Amada Lemus Notes Date Note Type Note Provider Name and Address Organization Details Recorded Time 10/16/2023 text/html follow up of her medical problems COPD dyslipidemia peripheral arterial occlusive disease colon polyps and stricture of esophagus Yoel Diallo MD Attn: Accounting[address] [place], [address], [facility] 11/10/2023 19:05:01 07/13/2024 text/html COPD no cough or wheezing no shortness a breathperipheral arterial disease no claudication no lesions on feetstricture of the esophagus asymptomatic PPIhyperlipidemia does try to follow a low-fat diet does take rosuvastatin Yoel Diallo MD Attn: Accounting[address] [facility], [place], [address], [place] [facility] 07/13/2024 13:56:32 OBGyn Episode No OBEpisode recorded.
[2024-07-20 08:00] VITALS: BP 149/72; PULSE 99; RESP 18; TEMP 36.7; O2SAT 97
--- NOTE | 2024-07-20 08:05 | WPDANESEPPF ---
Anes - Initial Pre Proc Eval Procedure: Operation Date: 07/20/24 09:30 Proposed Procedures p Esophagogastroduodenoscopy - Alec Kong MD Date/Time: 07/20/24 08:05 Surgeon: Alec Kong MD Pre Op Diagnosis: dysphagia Patient Data Age: 73 Gender: F Height: 1.68 m Weight: 43.9 kg Last Vital Signs Temp 36.7 C 07/20/24 08:00 Pulse 99 07/20/24 08:00 Resp 18 07/20/24 08:00 BP 149/72 H 07/20/24 08:00 Pulse Ox 97 07/20/24 08:00 O2 Del Method Room Air 07/20/24 08:00 Allergies Allergy/AdvReac Type Severity Reaction Status Date / Time Penicillins Allergy Intermediate hallucinati Verified 07/20/24 07:57 ons Home Medications ?Medication ?Instructions ?Recorded ?Confirmed ?Type calcium carbonate (Calcium 500) 500 mg PO DAILY 09/22/19 07/20/24 History ferrous sulfate 325 mg (65 mg 325 mg PO DAILY 09/22/19 07/20/24 History iron) tablet (Iron (ferrous sulfate)) rosuvastatin 20 mg tablet 20 mg PO DAILY 09/22/19 07/20/24 History Adult Multivitamin Gummies 2 gummy PO DAILY 02/27/22 07/20/24 History albuterol sulfate 90 mcg/actuation 2 puff inhalation Q4H PRN 02/27/22 07/20/24 History aerosol inhaler Shortness Of Breath budesonide 160 mcg-glycopyr 9 2 inh inhalation BID 06/13/22 07/20/24 History mcg-formot 4.8 mcg/actuation HFA inhaler (Breztri Aerosphere) prednisone 50 mg tablet 50 mg PO DAILY 5 days #5 tabs 02/24/24 07/20/24 Rx omeprazole 40 mg capsule,delayed 40 mg PO DAILY 07/08/24 07/20/24 History release Patient hx anesthesia problems: none Family hx anesthesia problems: none Results Review: All pre-operative results and documents have been reviewed as part of the pre-operative evaluation. [facility] Past Medical History Medical History Hyperlipidemia COPD (chronic obstructive pulmonary disease) Peripheral vascular disease Surgical History Surgical History S/P femoral-popliteal bypass surgery History of esophagogastroduodenoscopy (EGD) Family History Family History Father Emphysema of lung Chronic obstructive pulmonary disease Sibling Lung cancer Social History Social History Smoking packs per day: 1 Smoking cigarettes per day: 20.0 Years smoked: 40 Smoking pack-years: 40.00 Smoking status: Former smoker Tobacco type: cigarettes Smoking end date: 02/16/14 Alcohol intake: never Substance use: never Substance use type: does not use Lack of Transportation: No Lack of Food: Never True Current Housing: I Have Housing Concerned About Future Housing: No Difficulty Paying Gas/Electric Bills: No Difficulty Paying for Meds: No Currently Unemployed: No Education: High School Diploma/GED Difficulty w/ Childcare or Family Care: No Living arrangements: with family Spiritual care concerns: No Anes - Eval Final PreProcedure Day of Procedure 07/20/24 08:05 Patient weight: cachectic Heart: regular rate and rhythm Lungs: decreased breath sounds Airway: Mallampati scale class II Neurological: alert and oriented Last oral intake: >/= 8 hours ASA classification: IV Emergent: no Anesthetic plan: proceed Anesthesia type and monitoring: general GIVS and standard monitoring Results Review: All pre-operative results and documents have been reviewed as part of the pre-operative evaluation. Informed Consent: The patient's anesthetic plan and its attendant risks and benefits were discussed with the patient/family/POA. Questions were solicited and answers provided to the satisfaction of the patient/family/POA.
[2024-07-20] MEDS: LACTATED RINGERS 1,000 ML 150 ML IV CONT (08:10)
[2024-07-20] MEDS: BENZOCAINE (*SP) 60 ML SPRAY CAN (HURRICAINE) 1 SPRAY MUCOUS MEM (09:06)
--- NOTE | 2024-07-20 09:06 | PM.HPGS ---
History of Present Illness History of Present Illness Consent: Risks, benefits, and alternatives have been discussed and questions answered. Patient agrees to proceed with procedure. Chief complaint: dysphagia Narrative: Amada Lemus is a 73 year old female here for another egd h/o dysphagia that had required esophageal dilatation due to proximal esophageal stricture, used balloon up to 12mm Review of Systems Review of Systems: All systems reviewed & are unremarkable except as noted in HPI and below PMFSH Past Medical History Medical History Hyperlipidemia COPD (chronic obstructive pulmonary disease) Peripheral vascular disease Surgical History Surgical History S/P femoral-popliteal bypass surgery History of esophagogastroduodenoscopy (EGD) Family History Family History Father Emphysema of lung Chronic obstructive pulmonary disease Sibling Lung cancer Social History Social History Smoking packs per day: 1 Smoking cigarettes per day: 20.0 Years smoked: 40 Smoking pack-years: 40.00 Smoking status: Former smoker Tobacco type: cigarettes Smoking end date: 02/16/14 Alcohol intake: never Substance use: never Substance use type: does not use Lack of Transportation: No Lack of Food: Never True Current Housing: I Have Housing Concerned About Future Housing: No Difficulty Paying Gas/Electric Bills: No Difficulty Paying for Meds: No Currently Unemployed: No Education: High School Diploma/GED Difficulty w/ Childcare or Family Care: No Living arrangements: with family Spiritual care concerns: No Meds Home Medications and Allergies Home Medications ?Medication ?Instructions ?Recorded ?Confirmed ?Type calcium carbonate (Calcium 500) 500 mg PO DAILY 09/22/19 07/20/24 History ferrous sulfate 325 mg (65 mg 325 mg PO DAILY 09/22/19 07/20/24 History iron) tablet (Iron (ferrous sulfate)) rosuvastatin 20 mg tablet 20 mg PO DAILY 09/22/19 07/20/24 History Adult Multivitamin Gummies 2 gummy PO DAILY 02/27/22 07/20/24 History albuterol sulfate 90 mcg/actuation 2 puff inhalation Q4H PRN 02/27/22 07/20/24 History aerosol inhaler Shortness Of Breath budesonide 160 mcg-glycopyr 9 2 inh inhalation BID 06/13/22 07/20/24 History mcg-formot 4.8 mcg/actuation HFA inhaler (Breztri Aerosphere) prednisone 50 mg tablet 50 mg PO DAILY 5 days #5 tabs 02/24/24 07/20/24 Rx omeprazole 40 mg capsule,delayed 40 mg PO DAILY 07/08/24 07/20/24 History release Allergies Allergy/AdvReac Type Severity Reaction Status Date / Time Penicillins Allergy Intermediate hallucinati Verified 07/20/24 07:57 ons Vital Signs Vital Signs - 24 hr 07/20/24 08:00 Temperature 98.0 F Pulse Rate 99 Respiratory Rate 18 Blood Pressure 149/72 H Pulse Oximetry 97 Oxygen Delivery Room Air Exam Const: General: comfortable and no acute distress HENMT: Face/Nose/Sinus: Normal nares present Eyes: General: appearance normal, both eyes and all related structures Neck: Neck: no JVD Resp: Auscultation: clear to auscultation bilaterally Cardio: Rate: regular rate Rhythm: regular rhythm GI: Inspection: non-distended GI Palp: Yes Soft to palpation Skin: General skin exam: normal color Neuro: Speech: normal speech Extrem: General: normal to inspection Psych: Mental Status: mental status grossly normal Assessment and Plan Assessment and plan (1) Esophageal stricture: Code(s): K22.2 - Esophageal obstruction Status: Acute Assessment and Plan: egd with possible dilation
[2024-07-20 09:19] VITALS: BP 158/83; PULSE 90; RESP 18; O2SAT 100
[2024-07-20 09:29] VITALS: BP 158/71; PULSE 81; RESP 18; O2SAT 100
[2024-07-20 09:39] VITALS: BP 146/70; PULSE 83; RESP 13; O2SAT 100
== END 2024-07-20 09:46 | disposition home or self-care (01) ==
PROVIDERS: PCP Internal Medicine; Referring Provider Internal Medicine Gastroenterology; Visit Provider Internal Medicine Gastroenterology
PROC: 0DJ08ZZ Inspection of Upper Intestinal Tract, Via Natural or Artificial Opening Endoscopic (ICD-10-PCS; CPT 43249; principal; 2024-07-20 09:30)
DX: K22.2 Esophageal obstruction (principal); K29.70 Gastritis, unspecified, without bleeding; E78.5 Hyperlipidemia, unspecified; J44.9 Chronic obstructive pulmonary disease, unspecified; I73.9 Peripheral vascular disease, unspecified; Z79.51 Long term (current) use of inhaled steroids; Z79.52 Long term (current) use of systemic steroids; Z98.890 Other specified postprocedural states; Z95.820 Peripheral vascular angioplasty status with implants and grafts; Z87.891 Personal history of nicotine dependence; Z80.1 Family history of malignant neoplasm of trachea, bronchus and lung
CPT/HCPCS: 43249; C1726; J2003; J2704; J7120

== ENCOUNTER 2025-01-15 10:35 | Outpatient (CLI) | payer MEDICARE, SELFPAY ==
--- OUTSIDE RECORDS SUMMARY | 2025-01-15 11:24 | XMS_ITS | Clinical Summary ---
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 Role Phone Unavailable Primary Care Provider Unavailabl e Social History Tobacco Use Types Packs/Day Years Used Date Smoking Tobacco: Never Assessed Comments Unknown Sex and Gender Information Value Date Recorded Sex Assigned at Not on file Legal Sex Female 7:33 PM CDT Gender Identity Not on file Sexual Orientation Not on file Plan of Treatment Health Maintenance Due Date Last Done Comments Hepatitis C 1966 DTaP, Tdap and Td Vaccines ( 1 - Tdap) 12/20/1967 Pneumococcal Vaccine: 50+ Ye ars (1 of 1 - PCV) 1998 Zoster Vaccines (1 of 2) 1998 Dexa Scan (General) 2013 RSV Immunization or 60+ Years (1 - 1-dose 75+ series) 12/20/2023 COVID-19 Vaccine ( - 2023-2 5 season) 2025 Meningococcal B Vaccine Aged Out No l onger eligible based on patient's age to complete this topic Meningococcal Vaccine Aged Out No panfilo romeo eligible based on patient's age to complete this topic RSV Immunizations Under 20 Months Aged Out No longer eligible based on patient's age to complete this topic
[2025-01-15 12:06] LABS: Hematocrit 49.3 % (37.0-47.0); Hemoglobin 16.1 g/dL (12.0-15.0); Immature Granulocyte Percent A 0.4 % (0-0.5); Lymphocytes Absolute Auto 2.54 K/mm3 (0.9-3.2); Mean Corpuscular HGB Conc 32.7 g/dl (32-36); Mean Corpuscular Hemoglobin 28.1 pg (26-34); Mean Corpuscular Volume 86.0 fl (80-100); Nucleated Red Blood Cells Absolute Auto 0.000 K/mm3 (0.0-0.012); Nucleated Red Blood Cells Perc 0.0 % (0.0-0.2); Platelet Count Result 342 k/mm3 (150-375); Red Blood Count 5.73 M/mm3 (4.2-5.4); White Blood Count 10.7 K/mm3 (4.5-10.0)
[2025-01-15 12:35] LABS: Alanine Aminotransferase 15 U/L (6-35); Albumin Level 4.3 g/dL (3.5-5.1); Alkaline Phosphatase 96 U/L (38-126); Anion Gap 9 mmol/L (4-12); Aspartate Amino Transferase 29 U/L (14-36); Bilirubin,Total 0.5 mg/dL (0.2-1.3); Blood Urea Nitrogen 10 mg/dL (7-17); Calcium 9.5 mg/dL (8.4-10.2); Carbon Dioxide 29 mmol/L (22-30); Chloride 101 mmol/L (98-107); Cholesterol 223 mg/dL (0-200); Estimated Glomerular Filt Rate > 60; Glucose 95 mg/dL (65-110); HDL Direct 86 mg/dL; Potassium 5.0 mmol/L (3.4-5.0); Sodium 139 mmol/L (137-145); Total Protein 7.5 g/dL (6.3-8.2); Triglycerides 135 mg/dL (<150)
== END 2025-01-15 10:36 | disposition home or self-care (01) ==
PROVIDERS: PCP Internal Medicine; Visit Provider Internal Medicine
DX: E78.5 Hyperlipidemia, unspecified (principal); I10 Essential (primary) hypertension
CPT/HCPCS: 36415; 80053; 80061; 85025

== ENCOUNTER 2025-01-20 02:00 | Day surgery (SDC) | payer MEDICARE, SELFPAY ==
[2025-01-05 14:22] VITALS: BMI 16.1
[2025-01-20 08:03] VITALS: BP 122/72; PULSE 85; RESP 18; TEMP 36.6; O2SAT 100; BMI 15.8
[2025-01-20] MEDS: LACTATED RINGERS 1,000 ML 150 ML IV CONT (08:10)
--- NOTE | 2025-01-20 08:59 | WPDANESEPPF ---
Anes - Initial Pre Proc Eval Procedure: Operation Date: 01/20/25 09:30 Proposed Procedures p Esophagogastroduodenoscopy - Alec Kong MD Date/Time: 01/20/25 08:59 Surgeon: Alec Kong MD Pre Op Diagnosis: Esophageal obstruction Patient Data Age: 74 Gender: F Height: 1.68 m Weight: 44.5 kg Last Vital Signs Temp 97.8 F 01/20/25 08:03 Pulse 85 01/20/25 08:03 Resp 18 01/20/25 08:03 BP 122/72 01/20/25 08:03 Pulse Ox 100 01/20/25 08:03 O2 Del Method Room Air 01/20/25 08:03 Allergies Allergy/AdvReac Type Severity Reaction Status Date / Time Penicillins Allergy Intermediate hallucinati Verified 01/20/25 08:02 ons Home Medications ?Medication ?Instructions ?Recorded ?Confirmed ?Type calcium carbonate (Calcium 500) 500 mg PO DAILY 09/22/19 01/20/25 History ferrous sulfate 325 mg (65 mg 325 mg PO DAILY 09/22/19 01/20/25 History iron) tablet (Iron (ferrous sulfate)) rosuvastatin 20 mg tablet 20 mg PO DAILY 09/22/19 01/20/25 History Adult Multivitamin Gummies 2 gummy PO DAILY 02/27/22 01/20/25 History albuterol sulfate 90 mcg/actuation 2 puff inhalation Q4H PRN 02/27/22 01/05/25 History aerosol inhaler Shortness Of Breath budesonide 160 mcg-glycopyr 9 2 inh inhalation BID 06/13/22 01/20/25 History mcg-formot 4.8 mcg/actuation HFA inhaler (Breztri Aerosphere) omeprazole 40 mg capsule,delayed 40 mg PO DAILY 07/08/24 01/20/25 History release Patient hx anesthesia problems: none Family hx anesthesia problems: none Results Review: All pre-operative results and documents have been reviewed as part of the pre-operative evaluation. [facility] Past Medical History Medical History Hyperlipidemia COPD (chronic obstructive pulmonary disease) Peripheral vascular disease Surgical History Surgical History S/P femoral-popliteal bypass surgery History of esophagogastroduodenoscopy (EGD) Family History Family History Father Emphysema of lung Chronic obstructive pulmonary disease Sibling Lung cancer Social History Social History Smoking packs per day: 1 Smoking cigarettes per day: 20.0 Years smoked: 40 Smoking pack-years: 40.00 Smoking status: Former smoker Tobacco type: cigarettes Smoking end date: 02/16/14 Alcohol intake: never Substance use: never Substance use type: does not use Lack of Transportation: No Lack of Food: Never True Current Housing: I Have Housing Concerned About Future Housing: No Difficulty Paying Gas/Electric Bills: No Difficulty Paying for Meds: No Currently Unemployed: No Education: High School Diploma/GED Difficulty w/ Childcare or Family Care: No Living arrangements: with family Spiritual care concerns: No Anes - Eval Final PreProcedure Day of Procedure 01/20/25 08:59 Patient weight: thin Lungs: normal air movement Airway: Mallampati scale class II and special considerations (Edentulous. ) Neurological: alert and oriented Last oral intake: >/= 8 hours ASA classification: III Emergent: no Anesthetic plan: proceed Anesthesia type and monitoring: general GIVS and standard monitoring Results Review: All pre-operative results and documents have been reviewed as part of the pre-operative evaluation. COPD, stable, pt w longstanding esophageal stricture. Informed Consent: The patient's anesthetic plan and its attendant risks and benefits were discussed with the patient/family/POA. Questions were solicited and answers provided to the satisfaction of the patient/family/POA.
--- NOTE | 2025-01-20 09:24 | PM.HPGS ---
History of Present Illness History of Present Illness Consent: Risks, benefits, and alternatives have been discussed and questions answered. Patient agrees to proceed with procedure. Chief complaint: Esophageal obstruction Narrative: Amada Lemus is a 74 year old female here for another egd h/o dysphagia that had required esophageal dilatation due to proximal esophageal stricture, used balloon up to 12mm Review of Systems Review of Systems: All systems reviewed & are unremarkable except as noted in HPI and below PMFSH Past Medical History Medical History Hyperlipidemia COPD (chronic obstructive pulmonary disease) Peripheral vascular disease Surgical History Surgical History S/P femoral-popliteal bypass surgery History of esophagogastroduodenoscopy (EGD) Family History Family History Father Emphysema of lung Chronic obstructive pulmonary disease Sibling Lung cancer Social History Social History Smoking packs per day: 1 Smoking cigarettes per day: 20.0 Years smoked: 40 Smoking pack-years: 40.00 Smoking status: Former smoker Tobacco type: cigarettes Smoking end date: 02/16/14 Alcohol intake: never Substance use: never Substance use type: does not use Lack of Transportation: No Lack of Food: Never True Current Housing: I Have Housing Concerned About Future Housing: No Difficulty Paying Gas/Electric Bills: No Difficulty Paying for Meds: No Currently Unemployed: No Education: High School Diploma/GED Difficulty w/ Childcare or Family Care: No Living arrangements: with family Spiritual care concerns: No Meds Home Medications and Allergies Home Medications ?Medication ?Instructions ?Recorded ?Confirmed ?Type calcium carbonate (Calcium 500) 500 mg PO DAILY 09/22/19 01/20/25 History ferrous sulfate 325 mg (65 mg 325 mg PO DAILY 09/22/19 01/20/25 History iron) tablet (Iron (ferrous sulfate)) rosuvastatin 20 mg tablet 20 mg PO DAILY 09/22/19 01/20/25 History Adult Multivitamin Gummies 2 gummy PO DAILY 02/27/22 01/20/25 History albuterol sulfate 90 mcg/actuation 2 puff inhalation Q4H PRN 02/27/22 01/05/25 History aerosol inhaler Shortness Of Breath budesonide 160 mcg-glycopyr 9 2 inh inhalation BID 06/13/22 01/20/25 History mcg-formot 4.8 mcg/actuation HFA inhaler (Breztri Aerosphere) omeprazole 40 mg capsule,delayed 40 mg PO DAILY 07/08/24 01/20/25 History release Allergies Allergy/AdvReac Type Severity Reaction Status Date / Time Penicillins Allergy Intermediate hallucinati Verified 01/20/25 08:02 ons Vital Signs Vital Signs - 24 hr 01/20/25 08:03 Temperature 97.8 F Pulse Rate 85 Respiratory Rate 18 Blood Pressure 122/72 Pulse Oximetry 100 Oxygen Delivery Room Air Exam Const: General: comfortable and no acute distress HENMT: Face/Nose/Sinus: Normal nares present Eyes: General: appearance normal, both eyes and all related structures Cardio: Rate: regular rate Rhythm: regular rhythm GI: Inspection: non-distended GI Palp: Yes Soft to palpation Skin: General skin exam: normal color Neuro: Speech: normal speech Extrem: General: normal to inspection Psych: Mental Status: mental status grossly normal Assessment and Plan Assessment and plan (1) Dysphagia: Code(s): R13.10 - Dysphagia, unspecified Status: Resolved Assessment and Plan: egd (2) Esophageal stricture: Code(s): K22.2 - Esophageal obstruction Status: Acute
[2025-01-20 09:35] VITALS: BP 153/68; PULSE 83; RESP 17; O2SAT 100
--- NOTE | 2025-01-20 09:35 | S_PTH ---
PATIENT: Amada Lemus LOC: [facility] Krishnan#:[id number] AGE/SX: 74/F ROOM: RE01/20/[address]: Alec Kong MD : 1950 BED: DIS: 01/20/2025 SPEC #: [id number] RECD: 01/20/25 10:09 STATUS: MIKAELA REKarolyn #: [id number] KEITH: 01/20/25 09:[address]: Alec Kong DEPT: [facility] Surgical RECD BY: Queta Bird ENTERED: 01/20/25 10:10 SP TYPE: Surgical OTHR DR: Samy DialloMD Tissues: A - Gastric Polyp Procedures: Hematoxylin and Eosin Stain Gross and Microscopic Level 4 Synaptoshysin Chromogranin Stain Mib
[2025-01-20 09:45] VITALS: BP 151/69; PULSE 76; RESP 20; O2SAT 100
[2025-01-20 09:55] VITALS: BP 156/65; PULSE 70; RESP 20; O2SAT 100
== END 2025-01-20 10:04 | disposition home or self-care (01) ==
PROVIDERS: PCP Internal Medicine; Visit Provider Internal Medicine Gastroenterology
PROC: 0DJ08ZZ Inspection of Upper Intestinal Tract, Via Natural or Artificial Opening Endoscopic (ICD-10-PCS; CPT 43249; principal; 2025-01-20 09:30)
DX: K22.2 Esophageal obstruction (principal); D13.1 Benign neoplasm of stomach; E78.5 Hyperlipidemia, unspecified; J44.9 Chronic obstructive pulmonary disease, unspecified; I73.9 Peripheral vascular disease, unspecified; Z79.51 Long term (current) use of inhaled steroids; Z98.890 Other specified postprocedural states; Z87.891 Personal history of nicotine dependence; Z80.1 Family history of malignant neoplasm of trachea, bronchus and lung
CPT/HCPCS: 43249; 43239; 88305; 88342; C1726; J2704; J7120

== ENCOUNTER 2025-04-07 10:37 | Emergency (ER) | payer MEDICARE, SELFPAY ==
--- NOTE | ~2025-04-07 | CT_ITS ---
EXAMINATION: CT lumbar spine wo con DATE: 04/07/2025 11:20 INDICATION: Low back pain. Sciatica. TECHNIQUE: Computed tomography (CT) of the lumbar spine was performed without intravenous contrast. The dose-length product was 157.29 mGy-cm. Automated exposure control and iterative reconstruction technique were employed. COMPARISON: None FINDINGS: Vertebral body heights are maintained. No significant disc narrowing. There is ossification of the disc spaces at all lumbar levels. Mild endplate degenerative changes at L2-3 and L3-4. No acute fracture, subluxation or dislocation. No evidence for spondylolisthesis. Sacroiliac joints are symmetric. No acute sacral fracture. There is mild facet degenerative change at L5-S1. Lung bases unremarkable. IMPRESSION: 1. No acute abnormality of the lumbar spine. Reviewed, dictated and finalized at location I. ERCIAL INTELLIGENCE MANAGER
[2025-04-07 10:46] VITALS: BP 136/90; PULSE 104; RESP 18; TEMP 36.6; O2SAT 96
--- NOTE | 2025-04-07 11:11 | ED.LOWEXIN ---
HPI - Extremity Injury (Lower) General Chief Complaint: Extremity Injury, Lower Stated Complaint: pain in right leg x 3 weeks Time Seen by Provider: 04/07/25 10:57 History of Present Illness HPI Narrative: 74-year-old female presents the ER complaining of right leg pain. States that the onset of symptoms began experiencing right lower back pain that radiates into her right leg. Denies injury or trauma. Denies saddle anesthesia, lower extremity weakness, bowel or bladder dysfunction of, prior lumbar surgery, fevers. States PCP gave her tizanidine and a Medrol Dosepak with no improvement of her symptoms. Related Data Home Medications ?Medication ?Instructions ?Recorded ?Confirmed ?Last Taken ?Type calcium carbonate (Calcium 500) 500 mg PO DAILY 09/22/19 01/20/25 01/17/25 History ferrous sulfate 325 mg (65 mg 325 mg PO DAILY 09/22/19 01/20/25 01/17/25 History iron) tablet (Iron (ferrous sulfate)) rosuvastatin 20 mg tablet 20 mg PO DAILY 09/22/19 01/20/25 01/17/25 History Adult Multivitamin Gummies 2 gummy PO DAILY 02/27/22 01/20/25 01/17/25 History albuterol sulfate 90 mcg/actuation 2 puff inhalation Q4H PRN 02/27/22 01/05/25 07/20/24 History aerosol inhaler Shortness Of Breath budesonide 160 mcg-glycopyr 9 2 inh inhalation BID 06/13/22 01/20/25 01/20/25 History mcg-formot 4.8 mcg/actuation HFA inhaler (Breztri Aerosphere) omeprazole 40 mg capsule,delayed 40 mg PO DAILY 07/08/24 01/20/25 01/17/25 History release Allergies Allergy/AdvReac Type Severity Reaction Status Date / Time Penicillins Allergy Intermediate hallucinati Verified 04/07/25 10:49 ons Review of Systems Review of Systems: All systems reviewed & are unremarkable except as noted in HPI and below PMFSH Past Medical History Medical History Adenomatous polyp of stomach Hyperlipidemia COPD (chronic obstructive pulmonary disease) Peripheral vascular disease Surgical History Surgical History S/P femoral-popliteal bypass surgery History of esophagogastroduodenoscopy (EGD) Family History Family History Father Emphysema of lung Chronic obstructive pulmonary disease Sibling Lung cancer Social History Social History Smoking packs per day: 1 Smoking cigarettes per day: 20.0 Years smoked: 40 Smoking pack-years: 40.00 Smoking status: Former smoker Tobacco type: cigarettes Smoking end date: 02/16/14 Alcohol intake: never Substance use: never Substance use type: does not use Lack of Transportation: No Lack of Food: Never True Current Housing: I Have Housing Concerned About Future Housing: No Difficulty Paying Gas/Electric Bills: No Difficulty Paying for Meds: No Currently Unemployed: No Education: High School Diploma/GED Difficulty w/ Childcare or Family Care: No Living arrangements: with family Spiritual care concerns: No Exam Const: General: healthy appearing and no acute distress Nutritional Appearance: thin Resp: Effort & Inspection: normal respiratory effort Auscultation: clear to auscultation bilaterally Cardio: Rate: regular rate Rhythm: regular rhythm Back/Spine/Pelvis: Other: TTP to right SI joint. Neuro: General: patient oriented x3 and moves all extremities Gait exam (Neuro): Normal gait present Extrem: General: normal to inspection Psych: Mental Status: mental status grossly normal Course Vital Signs Vital signs: Vital Signs Temperature 36.6 C 04/07/25 10:46 Pulse Rate 104 H 04/07/25 10:46 Respiratory Rate 18 04/07/25 10:46 Blood Pressure 136/90 04/07/25 10:46 Pulse Oximetry 96 04/07/25 10:46 Oxygen Delivery Room Air 04/07/25 10:46 Temperature 36.6 C 04/07/25 10:46 Pulse Rate 104 H 04/07/25 10:46 Respiratory Rate 18 04/07/25 10:46 Blood Pressure 136/90 04/07/25 10:46 Pulse Oximetry 96 04/07/25 10:46 Oxygen Delivery Room Air 04/07/25 10:46 MDM MDM Narrative Medical decision making narrative: 74-year-old female presents the ER complaining of low back pain with radiation to her right leg. Patient completed a course that tizanidine and a Medrol Dosepak improvement of her symptoms. No red flags on exam. CT of lumbar spine shows degenerative changes. Plan is to discharge patient home with an alternative muscle relaxer, lidocaine patch and pain medication. Will refer to orthopedics for further management Differential Diagnosis Differential Diagnosis: Lumbar strain, sciatica, degenerative joint disease, spinal stenosis Imaging Data Radiologist's impression: ITS Impressions Lumbar Spine CT 04/07/25 11:46 IMPRESSION: 1. No acute abnormality of the lumbar spine. Discharge Plan Discharge Clinical Impression: Sciatica Qualifiers: Laterality: right Qualified Code(s): M54.31 - Sciatica, right side Patient Disposition: Home Condition: Stable Instructions: Antibiotic Form Patient Language: Trinidadian Prescriptions: New lidocaine 5 % adhesive patch,medicated 1 patch topical DAILY Qty: 30 0RF Rx Instructions: leave on most painful area for up to 12 hrs methocarbamol 750 mg tablet 750 mg PO QID Qty: 20 0RF tramadol 50 mg tablet 50 mg PO Q6H PRN (Reason: pain) Qty: 20 0RF No Action ferrous sulfate [Iron (ferrous sulfate)] 325 mg (65 mg iron) Tablet 325 mg PO DAILY calcium carbonate [Calcium 500] 500 mg calcium (1,250 mg) Tablet,Chewable 500 mg PO DAILY rosuvastatin 20 mg tablet 20 mg PO DAILY omeprazole 40 mg capsule,delayed release(DR/EC) 40 mg PO DAILY Adult Multivitamin Gummies 2 gummy PO DAILY albuterol sulfate 90 mcg/actuation HFA aerosol inhaler 2 puff INHALATION Q4H PRN (Reason: Shortness Of Breath) Breztri Aerosphere 160-9-4.8 mcg/actuation HFA aerosol inhaler 2 inh INHALATION BID Follow-up/Referrals: Yoel,MD Samy [Primary Care Provider] Phuong Henson CNA [Career Coach, Nursing] Romulo Henson MD [Physician, Orthopedics] Time of Disposition: 12:29
--- OUTSIDE RECORDS SUMMARY | 2025-04-07 12:08 | XMS_ITS | Continuity of Care Document ---
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 Name Role Phone SAMY DIALLO Primary Care Provider Assessment Encounter Date Assessment Date Assessment LastModified by Organization Details LastModified Time 01/11/2025 01/11/2025 Continue current therapy blood work has been ordered healthy food eating instructions arterial Dopplers with waveforms colonoscopies [email or web address] Not available 01/11/2025 22:56:49 Plan of Treatment Reminders Order Date Submit Date Provider Last Modified By Organization Details Last Modified Time Details Appointments ANY 15 2025 09:00A M Samy Diallo MD Not available Not available Not available Lab CBC w/ auto diff 2024 [facility]Ekg, [address], [place], [address], 01/22/2025 13:59:52 lipid panel, serum 2024 025 [facility], [address], [place], [address], 01/22/2025 13:59:51 CMP, serum or plasma 2024 025 [facility], [address], [place], [address], 01/22/2025 13:59:51 Referral None recorded . Procedures None recorded . Surgeries None recorded . Imaging None recorded . Medication Orders None recorded . Patient TargetsNo targets recorded. Patient Instructions Encounter Date Encounter Id Patient Instructions Last Modified By Organization Details Last Modified Time 01/11/2025 [id number] eating healthy foods: care instructions Not available 01/11/2025 13:02:19 Reason for Referral None Reported. Results Created Date Observation Date Name Description Value Unit Range Abnormal Flag Note LastModifiedBy Organization Detail LastModifiedTime 04/07/20 25 04/07/2025 imagi ng/di agnos tic resul t No observ ation record ed. [facility] [address], [place], [address], 04/07/2025 12:52:43 Result Notes None recorded. Problems Name Problem SNOMED Code Status Onset Date Resolution Date Notes Provider Name and Address Organization Details Recorded Time Long-term drug therapy Active 2023 CHEMA [place], [place] - [facility] 4 11:36:15 Hyperlipidemia 32744332 Active 2023 Emma Epps [place] null, [place] [facility] 4 11:36:16 Chronic obstructive pulmonary disease 52692165 Active 2023 Emma Epps [place], [place] [facility] 4 11:36:16 Stricture of esophagus 17950142 Active 2023 Samy Diallo MD Attn: Dulce yeung,[address] [place], [address], [place] [facility] 4 19:03:57 Polyp of colon 98468449 Active 2023 Samy Diallo MD Attn: Dul[address] yeung[address] [place], [address], [place] [facility] 4 19:03:58 Peripheral arterial occlusive disease 598065171 Active 2023 Samy Diallo MD Attn: [address] yeung[address] [place], [address], [place] [facility] 4 19:03:59 Problem Notes None recorded. Medical Equipment None Reported. Allergies Allergen ID Allergen Name Allergen Category Reaction Reaction Severity Criticality Documentation Date Start Date Code Code System Note Provider Name and Address Organization Details Recorded Time 294204 Product containin g penicilli n (product) medicatio n fever hallucina tions Not available Not available Not available 10/16/2023 00722 [address] [place], [place] - [facility] 4 10:44:25 Medications Name Sig Start Date Stop Date Status Note LastModified by Organization Details LastModified Time azithromyci n 250 mg tablet TAKE 2 TABLETS BY MOUTH TODAY, THEN TAKE 1 TABLET DAILY FOR 4 DAYS DIRECTED 07/13 completed Not Available Not Available Not Available tizanidine 4 mg tablet Take 1 tablet every day by oral route in the evening for 5 days. 2024 active Not Available Not Available Not Avai lable Medrol (Walter) 4 mg tablets in a dose pack Take 1 dose pk by oral route as directed. 2024 active Not Available Not Available Not Avai lable omeprazole 40 mg capsule,del ayed release TAKE 1 CAPSULE BY MOUTH EVERY DAY 07/13 completed Not Available Not Available Not Available aspirin 81 mg tablet,nikki yed release Take 1 tablet every day by oral route. 07/13 completed Not Available Not Available Not Available pantoprazol e 40 mg tablet,nikki yed release TAKE 1 TABLET BY MOUTH EVERY DAY active Not Available Not Available No t Available prednisone 50 mg tablet TAKE 1 TABLET BY MOUTH EVERY DAY FOR 5 DAYS 07/13 completed Not Available Not Available Not Available albuterol sulfate HFA 90 mcg/actuati on aerosol inhaler INHALE 2 PUFFS BY MOUTH EVERY 4HOURS NEEDED active Not Available Not Available No t Available sertraline 50 mg tablet TAKE 1 TABLET BY MOUTH EVERY DAY active Not Available Not Available No t Available amoxicillin 875 mg-potassiu m clavulanate 125 mg tablet TAKE 1 TABLET BY MOUTH EVERY 12 HOURS FOR 7 DAYS 07/13 completed Not Available Not Available Not Available ezetimibe 10 mg tablet TAKE 1 TABLET BY MOUTH EVERY DAY active Not Available Not Available No t Available rosuvastati n 20 mg tablet TAKE 1 TABLET BY MOUTH EVERY DAY active Not Available Not Available No t Available Breztri Aerosphere 160 mcg-9mcg-4. 8mcg/actuat ion HFA aerosol inhaler TAKE 2 PUFFS BY MOUTH TWICE A DAY active Not Available Not Available No t Available Vitals Date Recorded Body height Body mass index (BMI) Body weight Heart rate Oxygen saturation Systolic And Diastolic Provider Name and Address Organization Details Last Updated DateTime 167.64 cm 16.3 kg/m2 74485.7 5 g 65 /min 98 % 110/70 mm[Hg] Oriana Hoff [place] [facility] 10:01:58 Social History Question Answer Notes LastModified by Organizat ion Details LastModified Time Tobacco Smoking Status Former Smoker Cindy CHEMA Fermin null, [place] - [facility] 10/16/2023 10:45:52 Are You Blind Or Do You Have Difficulty Seeing? No Information n ot available 10/16/2023 In The 14 Days Before Symptom Onset, Have You Had Close Contact With A Laboratory-confirm ed COVID-19 While That Case Was Ill? No Information n ot available 01/11/2025 In The 14 Days Before Symptom Onset, Have You Had Close Contact With A Person Who Is Under Investigation For COVID-19 While That Person Was Ill? No Information not available 01/11/2025 Have You Been To An Area Known To Be High Risk For COVID-19? No Information not available 01/11/2025 Are You Deaf Or Do You Have Serious Difficulty Hearing? No Information not available 10/16/2023 What Was The Date Of Your Most Recent Tobacco Screening? 01/11/2025 Information not available 01/11/2025 What Is Your Relationship Status? Information not available 10/16/2023 Do You Use Your Seat Belt Or Car Seat Routinely? Yes Information not available 01/11/2025 Do You Have Smoke And Carbon Monoxide Detectors In Your Home? Yes Information not available 01/11/2025 How Much Tobacco Do You Smoke? 1 PPD Information not available 10/16/2023 Do You Use Sunscreen Routinely? Yes Information not available 01/11/2025 Has Tobacco Cessation Counseling Been Provided? No Information not available 01/11/2025 How Many Years Have You Smoked Tobacco? 45 Information not available 10/16/2023 Sex: Female Functional Status Question Answer Note LastModified by Organizat ion Details LastModified Time Do you use any illicit or recreational drugs? Yes Information not available 01/11/2025 Do you or have you ever used any other forms of tobacco or nicotine? No Information not available 01/11/2025 What is your level of alcohol consumption? None Information not available 10/16/2023 Are you able to care for yourself independently? Yes Information not available 10/16/2023 Mental Status None recorded. Family History Nothing Reported. Medical History No medical history recorded. Gynecological HistoryNo gynecological history recorded. Obstetrics History GPAL:G 0 P 0 0 0 0 Immunizations Vaccine Type Date Status Note Provider Nam e and Address Organization Details Recorded Time zoster recombinant 4 completed CHEMA Ped[place], [place] [facility] 07/13/2024 10:18:40 Influenza, split virus, quadrivalent, preservative 9 completed Oriana [place] [facility] 07/13/2024 10:18:40 Influenza, adjuvanted, trivalent, PF 8 completed Oriana [place] [facility] 07/13/2024 10:18:40 Influenza, high-dose, quadrivalent, PF 0 completed Oriana Hoff [place] - [...] [place] [facility] 07/13/2024 10:18:40 Pneumococcal conjugate PCV20, polysaccharide [id number] conjugate, adjuvant, PF 3 completed CHE[place] [facility] 07/13/2024 10:18:40 COVID-19, mRNA, LNP-S, PF, gavin-sucrose, 30 mcg/0.3 mL 3 completed CHE[place] [facility] 07/13/2024 10:18:40 pneumococcal polysaccharide PPV23 3 completed CHE[place] [facility] 07/13/2024 10:18:40 Pneumococcal conjugate PCV 13 0 completed CHE[place] [facility] 07/13/2024 10:18:40 Influenza, high-dose, trivalent, PF 7 completed CHE[place] [facility] 07/13/2024 10:18:40 Influenza, split virus, trivalent, preservative 4 completed CHE[place] [facility] 07/13/2024 10:18:40 Influenza, split virus, trivalent, PF 6 completed Oriana [place] [facility] 07/13/2024 10:18:40 Influenza, split virus, trivalent, PF 7 completed CHE[place] [facility] 07/13/2024 10:18:40 Influenza, split virus, trivalent, PF 5 completed CHE[place] [facility] 07/13/2024 10:18:40 Influenza, high-dose, trivalent, PF 4 completed Not Available [facility] 01/11/2025 09:53:36 Tdap 4 completed Not Available [facility] 01/11/2025 09:53:36 zoster recombinant 4 completed Not Available [facility] 01/11/2025 09:53:36 Past Encounters Encounter ID Performer Location Encounter Start Date Encounter Closed Date Diagnosis/Indication Diagnosis SNOMED-CT Code Diagnosis ICD10 Code Diagnosis IMO Codes Diagnosis Note [id number] Samy Diallo MD [facility] [place] [address] [place] [address] 01/11/2025 09:51:48 01/11/2025 10:33:08 Decreased body mass index 2295730 Z68.5 7040828200 Underweight 937009561 R6 3.6 bmi 16.3 Hyperlipidemia 65636409 E78.5 Peripheral arterial occlusive disease 618023518 I73.9 Stricture of esophagus 80624522 K22.2 Chronic ob structive pulmonary disease 84299481 J44.9 Health Concerns Section Related Observation LastModified by Organization Detai ls LastModified Time None Recorded Concern Status LastModified by Organization Details LastModified Time None Recorded Payers Encounter Date Sequence Insurance Name Policy Number Policy Go Covered Member ID Go Member ID Guarantor Name 01/11/2025 1 [place] Amada Lemus [id number] Amada Lemus 01/11/2025 2 [employer] (MEDICARE SUPPLEMENT) Amada Lemus [id number] Amada Lemus Notes Date Note Type Note Provider Name and Address Organization Details Recorded Time 01/11/2025 text/html COPD no cough wheezing or shortness of breath dyslipidemia taking his rosuvastatin GERD has been fine no signs or symptoms of recurrence of her esophageal stricture peripheral arterial occlusive disease does not smoke anymore no clear-cut claudication Samy Diallo MD Attn: [address] [facility], [place], [address], [facility] [place] 01/11/2025 22:59:08 OBGyn Episode No OBEpisode recorded.
--- OUTSIDE RECORDS SUMMARY | 2025-04-07 12:08 | XMS_ITS | Data Portability ---
[facility] Organization [facility] Address [address] [place] [address] Care Team Providers Care Ice Cream Dipper Name Role Phone YOEL DIALLO Primary Care Provider Assessment Encounter Date [...] with me in 4 to 6 months [email or web address] Not available 11/10/2023 19:04:44 07/13/2024 07/13/2024 continue current therapy blood work ordered colon cancer screening declined eating healthy food care instructions start pantoprazole 40 mg daily she does not tolerate omeprazole follow up 4 months [email or web address] Not available 07/13/2024 13:56:10 08/05/2024 08/05/2024 urgent care ENT but I have no equipment to take out the wax today Not available 08/08/2024 11:07:29 01/11/2025 01/11/2025 Continue current therapy blood work has been ordered healthy food eating instructions arterial Dopplers with waveforms colonoscopies [email or web address] Not available 01/11/2025 22:56:49 Plan of Treatment Reminders Order Date Submit Date Provider Last Modified By Organization Details Last Modified Time Details Appointments ANY 15 2025 09:00A M Yoel Diallo MD Not available Not available Not available Lab CBC w/ auto diff [address] [facility], [address], [place], [address], 01/22/2025 13:59:52 lipid panel, serum [address] [facility], [address], [place], [address], 01/22/2025 13:59:51 CMP, serum or plasma [address] [facility], [address], [place], [address], 01/22/2025 13:59:51 CBC w/ auto diff 2024 025 [facility], [address] [facility] [address], [place], [address], 08/06/2024 07:17:22 CMP, serum or plasma 2024 025 [facility], [address] [facility] [address], [place], [address], 08/06/2024 07:17:21 lipid panel, serum 2024 025 [facility], [address] [place] [address] 2, [place], [address], 08/06/2024 07:17:19 CBC w/ auto diff 2023 024 [facility], [address] [facility], [address], [place], [address], 10/17/2023 06:22:51 lipid panel, serum 2023 024 [facility], [address] [facility], [address], [place], [address], 10/17/2023 06:22:50 CMP, serum or plasma 2023 024 [facility], [address], [address], [place], [address], 10/17/2023 06:22:51 Referral None recorded. Procedures None recorded. Surgeries None recorded. Imaging None recorded. Medication Orders pantopraz ole 40 mg tablet,de layed release 2024 025 [facility] #[id number], [address], [place], [address], 07/13/2024 11:58:12 Patient TargetsNo targets recorded. Patient Instructions Encounter Date Encounter Id Patient Instructions Last Modified By Organization Details Last Modified Time 07/13/2024 [id number] eating healthy foods: care instructions [email or web address] Not available 07/13/2024 11:58:12 08/05/2024 [id number] eating healthy foods: care instructions [email or web address] Not available 08/05/2024 17:12:12 01/11/2025 [id number] eating healthy foods: care instructions [email or web address] Not available 01/11/2025 13:02:19 Reason for Referral None Reported. Results Created Date Observation Date Name Description Value Unit Range Abnormal Flag Note LastModifiedBy Organization Detail LastModifiedTime 10/16/1910/17/2023 LIPID PANEL cholesterol, total 194 mg/dL 100-19 9 Not Available [facility] ([facility]) [address] [facility], [place], [address], 10/17/2023 06:22:50 10/16/1910/17/2023 LIPID PANEL triglyceride s 66 mg/dL 0-149 Not Available [facility]) [address] [facility], [place], [address], 10/17/2023 06:22:50 10/16/19 24 10/17/2023 LIPID PANEL HDL cholesterol 95 mg/dL >39 Not Available [facility] [address] [facility], [place], [address], 10/17/2023 06:22:50 10/16/19 24 10/17/2023 LIPID PANEL VLDL cholesterol osiel 12 mg/dL 5-40 Not Available [facility] ([facility]) [address] [place], [address], 10/17/2023 06:22:50 10/16/19 24 10/17/2023 LIPID PANEL LDL chol calc ([facility]) 87 mg/dL 0-99 Not Available [facility] [address] [place], [address], 10/17/2023 06:22:50 10/16/19 24 10/17/2023 COMP. METAB OLIC PANEL (14) glucose 85 mg/dL 70-99 Not Available [facility] ([facility]) [address] [place], [address], 10/17/2023 06:22:50 10/16/19 24 10/17/2023 COMP. METAB OLIC PANEL (14) BUN 9 mg/dL 8-27 Not Available [facility] ([facility]) [address] [place], [address], 10/17/2023 06:22:50 10/16/19 24 10/17/2023 COMP. METAB OLIC PANEL (14) creatinine 0.58 mg/dL 0.57-1 .00 Not Available [facility] ([facility]) [address] [place], [address], 10/17/2023 06:22:50 10/16/19 24 10/17/2023 COMP. METAB OLIC PANEL (14) eGFR 95 mL/mi n/1.7 3 >59 Not Available [facility] ([facility]) [address] [place], [address], 10/17/2023 06:22:50 10/16/19 24 10/17/2023 COMP. METAB OLIC PANEL (14) BUN/creatini ne ratio 16 12-28 Not Available [facility] ([facility]) [address] [place], [address], 10/17/2023 06:22:50 10/16/19 24 10/17/2023 COMP. METAB OLIC PANEL (14) sodium 142 mmol/ L 134-14 4 Not Available [facility] ([facility]) [address] [place], [address], 10/17/2023 06:22:50 10/16/19 24 10/17/2023 COMP. METAB OLIC PANEL (14) potassium 4.4 mmol/ L 3.5-5. 2 Not Available [facility] ([facility]) [address] [place], [address], 10/17/2023 06:22:50 10/16/19 24 10/17/2023 COMP. METAB OLIC PANEL (14) chloride 103 mmol/ L 96-106 Not Available [facility] ([facility]) [address] [place], [address], 10/17/2023 06:22:50 10/16/19 24 10/17/2023 COMP. METAB OLIC PANEL (14) carbon dioxide, total 25 mmol/ L 20-29 Not Available [facility] ([facility]) [address] [place], [address], 10/17/2023 06:22:50 10/16/19 24 10/17/2023 COMP. METAB OLIC PANEL (14) calcium 9.7 mg/dL 8.7-10 .3 Not Available [facility] ([facility]) [address] [place], [address], 10/17/2023 06:22:50 10/16/19 24 10/17/2023 COMP. METAB OLIC PANEL (14) protein, total 6.6 g/dL 6.0-8. 5 Not Available [facility] ([facility]) [address] [place], [address], 10/17/2023 06:22:50 10/16/19 24 10/17/2023 COMP. METAB OLIC PANEL (14) albumin 4.0 g/dL 3.8-4. 8 Not Available [facility] ([facility]) [address] [facility] [place], [address], 10/17/2023 06:22:50 10/16/19 24 10/17/2023 COMP. METAB OLIC PANEL (14) globulin, total 2.6 g/dL 1.5-4. 5 Not Available [facility] ([facility]) [address] [facility] [place], [address], 10/17/2023 06:22:50 10/16/19 24 10/17/2023 COMP. METAB OLIC PANEL (14) A/G ratio 1.5 Not Available [facility] ([facility]) [address] [facility] [place], [address], 10/17/2023 06:22:50 10/16/19 24 10/17/2023 COMP. METAB OLIC PANEL (14) bilirubin, total 0.4 mg/dL 0.0-1. 2 Not Available [facility] ([facility]) [address] [facility] [place], [address], 10/17/2023 06:22:50 10/16/19 24 10/17/2023 COMP. METAB OLIC PANEL (14) alkaline phosphatase 103 IU/L 44-121 Not Available [facility] [address] [facility] [place], [address], 10/17/2023 06:22:50 10/16/19 24 10/17/2023 COMP. METAB OLIC PANEL (14) AST (SGOT) 19 IU/L 0-40 Not Available [facility] ([facility]) [address] [facility] [place], [address], 10/17/2023 06:22:50 10/16/19 24 10/17/2023 COMP. METAB OLIC PANEL (14) ALT (SGPT) 13 IU/L 0-32 Not Available [facility] ([facility]) [address] [place], [address], 10/17/2023 06:22:50 10/16/19 24 10/16/2023 CBC WITH DIFFE RENTI AL/PL ATELE T WBC 12.5 x10e3 /uL 3.4-10 .8 above high normal Not Available [facility] ([facility]) [address] [place], [address], 10/17/2023 06:22:51 10/16/19 24 10/16/2023 CBC WITH DIFFE RENTI AL/PL ATELE T RBC 5.60 x10e6 /uL 3.77-5 .28 above high normal Not Available [facility] ([facility]) [address] [place], [address], 10/17/2023 06:22:51 10/16/19 24 10/16/2023 CBC WITH DIFFE RENTI AL/PL ATELE T hemoglobin 15.6 g/dL 11.1-1 5.9 Not Available [facility] ([facility]) [address] [place], [address], 10/17/2023 06:22:51 10/16/19 24 10/16/2023 CBC WITH DIFFE RENTI AL/PL ATELE T hematocrit 48.1 % 34.0-4 6.6 above high normal Not Available [facility] ([facility]) [address] [place], [address], 10/17/2023 06:22:51 10/16/19 24 10/16/2023 CBC WITH DIFFE RENTI AL/PL ATELE T MCV 86 fL 79-97 Not Available [facility] ([facility]) [address] [place], [address], 10/17/2023 06:22:51 10/16/19 24 10/16/2023 CBC WITH DIFFE RENTI AL/PL ATELE T MCH 27.9 pg 26.6-3 3.0 Not Available [facility] ([facility]) [address] [facility], [place], [address], 10/17/2023 06:22:51 10/16/19 24 10/16/2023 CBC WITH DIFFE RENTI AL/PL ATELE T MCHC 32.4 g/dL 31.5-3 5.7 Not Available [facility] ([facility]) [address] [facility], [place], [address], 10/17/2023 06:22:51 10/16/19 24 10/16/2023 CBC WITH DIFFE RENTI AL/PL ATELE T RDW 13.8 % 11.7-1 5.4 Not Available [facility] ([facility]) [address] [facility], [place], [address], 10/17/2023 06:22:51 10/16/19 24 10/16/2023 CBC WITH DIFFE RENTI AL/PL ATELE T platelets 343 x10e3 /uL 150-45 0 Not Available [facility] ([facility]) [address] [facility], [place], [address], 10/17/2023 06:22:51 10/16/19 24 10/16/2023 CBC WITH DIFFE RENTI AL/PL ATELE T neutrophils 70 % notest ab. Not Available [facility] ([facility]) [address] [facility], [place], [address], 10/17/2023 06:22:51 10/16/19 24 10/16/2023 CBC WITH DIFFE RENTI AL/PL ATELE T lymphs 21 % notest ab. Not Available [facility] ([facility]) [address] [place], [address], 10/17/2023 06:22:51 10/16/19 24 10/16/2023 CBC WITH DIFFE RENTI AL/PL ATELE T monocytes 8 % notest ab. Not Available [facility] ([facility]) [address] [facility] [place], [address], 10/17/2023 06:22:51 10/16/19 24 10/16/2023 CBC WITH DIFFE RENTI AL/PL ATELE T eos 1 % notest ab. Not Available [facility] ([facility]) [address] [facility], [place], [address], 10/17/2023 06:22:51 10/16/19 24 10/16/2023 CBC WITH DIFFE RENTI AL/PL ATELE T basos 0 % notest ab. Not Available [facility] ([facility]) [address] [facility], [place], [address], 10/17/2023 06:22:51 10/16/19 24 10/16/2023 CBC WITH DIFFE RENTI AL/PL ATELE T neutrophils (absolute) 8.7 x10e3 /uL 1.4-7. 0 above high normal Not Available [facility] ([facility]) [address] [place], [address], 10/17/2023 06:22:51 10/16/19 24 10/16/2023 CBC WITH DIFFE RENTI AL/PL ATELE T lymphs (absolute) 2.6 x10e3 /uL 0.7-3. 1 Not Available [facility] ([facility]) [address] [place], [address], 10/17/2023 06:22:51 10/16/19 24 10/16/2023 CBC WITH DIFFE RENTI AL/PL ATELE T monocytes(ab solute) 1.0 x10e3 /uL 0.1-0. 9 above high normal Not Available [facility] ([facility]) [address] [facility], [place], [address], 10/17/2023 06:22:51 10/16/19 24 10/16/2023 CBC WITH DIFFE RENTI AL/PL ATELE T eos (absolute) 0.1 x10e3 /uL 0.0-0. 4 Not Available [facility] ([facility]) [address] [place], [address], 10/17/2023 06:22:51 10/16/19 24 10/16/2023 CBC WITH DIFFE RENTI AL/PL ATELE T baso (absolute) 0.1 x10e3 /uL 0.0-0. 2 Not Available [facility] ([facility]) [address] [place], [address], 10/17/2023 06:22:51 10/16/19 24 10/16/2023 CBC WITH DIFFE RENTI AL/PL ATELE T immature granulocytes 0 % notest ab. Not Available [facility] ([facility]) [address] [place], [address], 10/17/2023 06:22:51 10/16/19 24 10/16/2023 CBC WITH DIFFE RENTI AL/PL ATELE T immature grans (abs) 0.0 x10e3 /uL 0.0-0. 1 Not Available [facility] ([facility]) [address] [place], [address], 10/17/2023 06:22:51 08/06/19 25 08/06/2024 LIPID PANEL cholesterol, total 178 mg/dL 100-19 9 Not Available [facility] ([facility]) [address] [place], [address], 08/06/2024 07:17:19 08/06/19 25 08/06/2024 LIPID PANEL triglyceride s 79 mg/dL 0-149 Not Available [facility] ([facility]) [address] [place], [address], 08/06/2024 07:17:19 08/06/19 25 08/06/2024 LIPID PANEL HDL cholesterol 91 mg/dL >39 Not Available [facility] [address] [facility], [place], [address], 08/06/2024 07:17:19 08/06/19 25 08/06/2024 LIPID PANEL VLDL cholesterol osiel 14 mg/dL 5-40 Not Available [facility]) [address] [facility], [place], [address], 08/06/2024 07:17:19 08/06/19 25 08/06/2024 LIPID PANEL LDL chol calc ([facility]) 73 mg/dL 0-99 Not Available [facility] [address] [place], [address], 08/06/2024 07:17:19 08/06/19 25 08/06/2024 COMP. METAB OLIC PANEL (14) glucose 76 mg/dL 70-99 Not Available [facility] ([facility]) [address] [place], [address], 08/06/2024 07:17:21 08/06/19 25 08/06/2024 COMP. METAB OLIC PANEL (14) BUN 11 mg/dL 8-27 Not Available [facility] ([facility]) [address] [place], [address], 08/06/2024 07:17:21 08/06/19 25 08/06/2024 COMP. METAB OLIC PANEL (14) creatinine 0.55 mg/dL 0.57-1 .00 below low normal Not Available [facility] ([facility]) [address] [place], [address], 08/06/2024 07:17:21 08/06/19 25 08/06/2024 COMP. METAB OLIC PANEL (14) eGFR 96 mL/mi n/1.7 3 >59 Not Available [facility] ([facility]) [address] [place], [address], 08/06/2024 07:17:21 08/06/19 25 08/06/2024 COMP. METAB OLIC PANEL (14) BUN/creatini ne ratio 20 -28 Not Available [facility]) [address] [place], [address], 08/06/2024 07:17:21 08/06/19 25 08/06/2024 COMP. METAB OLIC PANEL (14) sodium 141 mmol/ L 134-14 4 Not Available [facility] ([facility]) [address] [place], [address], 08/06/2024 07:17:21 08/06/19 25 08/06/2024 COMP. METAB OLIC PANEL (14) potassium 5.0 mmol/ L 3.5-5. 2 Not Available [facility] ([facility]) [address] [place], [address], 08/06/2024 07:17:21 08/06/19 25 08/06/2024 COMP. METAB OLIC PANEL (14) chloride 103 mmol/ L 96-106 Not Available [facility] ([facility]) [address] [place], [address], 08/06/2024 07:17:21 08/06/19 25 08/06/2024 COMP. METAB OLIC PANEL (14) carbon dioxide, total 26 mmol/ L 20-29 Not Available [facility] ([facility]) [address] [place], [address], 08/06/2024 07:17:21 08/06/19 25 08/06/2024 COMP. METAB OLIC PANEL (14) calcium 9.8 mg/dL 8.7-10 .3 Not Available [facility] ([facility]) [address] [place], [address], 08/06/2024 07:17:21 08/06/19 25 08/06/2024 COMP. METAB OLIC PANEL (14) protein, total 6.6 g/dL 6.0-8. 5 Not Available [facility] ([facility]) [address] [facility] [place], [address], 08/06/2024 07:17:21 08/06/19 25 08/06/2024 COMP. METAB OLIC PANEL (14) albumin 3.8 g/dL 3.8-4. 8 Not Available [facility] ([facility]) [address] [facility] [place], [address], 08/06/2024 07:17:21 08/06/19 25 08/06/2024 COMP. METAB OLIC PANEL (14) globulin, total 2.8 g/dL 1.5-4. 5 Not Available [facility] ([facility]) [address] [facility], [place], [address], 08/06/2024 07:17:21 08/06/19 25 08/06/2024 COMP. METAB OLIC PANEL (14) bilirubin, total 0.2 mg/dL 0.0-1. 2 Not Available [facility] ([facility]) [address] [facility] [place], [address], 08/06/2024 07:17:21 08/06/19 25 08/06/2024 COMP. METAB OLIC PANEL (14) alkaline phosphatase 104 IU/L 44-121 Not Available [facility] [address] [facility], [place], [address], 08/06/2024 07:17:21 08/06/19 25 08/06/2024 COMP. METAB OLIC PANEL (14) AST (SGOT) 18 IU/L 0-40 Not Available [facility] ([facility]) [address] [facility] [place], [address], 08/06/2024 07:17:21 08/06/19 25 08/06/2024 COMP. METAB OLIC PANEL (14) ALT (SGPT) 12 IU/L 0-32 Not Available [facility] ([facility]) [address] [facility], [place], [address], 08/06/2024 07:17:21 08/06/19 25 08/06/2024 CBC WITH DIFFE RENTI AL/PL ATELE T WBC 13.3 x10e3 /uL 3.4-10 .8 above high normal Not Available [facility] ([facility]) [address] [facility], [place], [address], 08/06/2024 07:17:22 08/06/19 25 08/06/2024 CBC WITH DIFFE RENTI AL/PL ATELE T RBC 5.33 x10e6 /uL 3.77-5 .28 above high normal Not Available [facility] ([facility]) [address] [facility], [place], [address], 08/06/2024 07:17:22 08/06/19 25 08/06/2024 CBC WITH DIFFE RENTI AL/PL ATELE T hemoglobin 14.9 g/dL 11.1-1 5.9 Not Available [facility] ([facility]) [address] [place], [address], 08/06/2024 07:17:22 08/06/19 25 08/06/2024 CBC WITH DIFFE RENTI AL/PL ATELE T hematocrit 45.6 % 34.0-4 6.6 Not Available [facility] ([facility]) [address] [facility], [place], [address], 08/06/2024 07:17:22 08/06/19 25 08/06/2024 CBC WITH DIFFE RENTI AL/PL ATELE T MCV 86 fL 79-97 Not Available [facility] ([facility]) [address] [facility], [place], [address], 08/06/2024 07:17:22 08/06/19 25 08/06/2024 CBC WITH DIFFE RENTI AL/PL ATELE T MCH 28.0 pg 26.6-3 3.0 Not Available [facility] ([facility]) [address] [facility], [place], [address], 08/06/2024 07:17:22 08/06/19 25 08/06/2024 CBC WITH DIFFE RENTI AL/PL ATELE T MCHC 32.7 g/dL 31.5-3 5.7 Not Available [facility] ([facility]) [address] [facility], [place], [address], 08/06/2024 07:17:22 08/06/19 25 08/06/2024 CBC WITH DIFFE RENTI AL/PL ATELE T RDW 13.4 % 11.7-1 5.4 Not Available [facility] ([facility]) [address] [facility], [place], [address], 08/06/2024 07:17:22 08/06/19 25 08/06/2024 CBC WITH DIFFE RENTI AL/PL ATELE T platelets 434 x10e3 /uL 150-45 0 Not Available [facility] ([facility]) [address] [facility], [place], [address], 08/06/2024 07:17:22 08/06/19 25 08/06/2024 CBC WITH DIFFE RENTI AL/PL ATELE T neutrophils 58 % notest ab. Not Available [facility] ([facility]) [address] [place], [address], 08/06/2024 07:17:22 08/06/19 25 08/06/2024 CBC WITH DIFFE RENTI AL/PL ATELE T lymphs 30 % notest ab. Not Available [facility] ([facility]) [address] [place], [address], 08/06/2024 07:17:22 08/06/19 25 08/06/2024 CBC WITH DIFFE RENTI AL/PL ATELE T monocytes 10 % notest ab. Not Available [facility] ([facility]) [address] [place], [address], 08/06/2024 07:17:22 08/06/19 25 08/06/2024 CBC WITH DIFFE RENTI AL/PL ATELE T eos 1 % notest ab. Not Available [facility] ([facility]) [address] [facility], [place], [address], 08/06/2024 07:17:22 08/06/19 25 08/06/2024 CBC WITH DIFFE RENTI AL/PL ATELE T basos 1 % notest ab. Not Available [facility] ([facility]) [address] [facility], [place], [address], 08/06/2024 07:17:22 08/06/19 25 08/06/2024 CBC WITH DIFFE RENTI AL/PL ATELE T neutrophils (absolute) 7.9 x10e3 /uL 1.4-7. 0 above high normal Not Available [facility] ([facility]) [address] [facility], [place], [address], 08/06/2024 07:17:22 08/06/19 25 08/06/2024 CBC WITH DIFFE RENTI AL/PL ATELE T lymphs (absolute) 3.9 x10e3 /uL 0.7-3. 1 above high normal Not Available [facility] ([facility]) [address] [place], [address], 08/06/2024 07:17:22 08/06/19 25 08/06/2024 CBC WITH DIFFE RENTI AL/PL ATELE T monocytes(ab solute) 1.3 x10e3 /uL 0.1-0. 9 above high normal Not Available [facility] ([facility]) [address] [place], [address], 08/06/2024 07:17:22 08/06/19 25 08/06/2024 CBC WITH DIFFE RENTI AL/PL ATELE T eos (absolute) 0.1 x10e3 /uL 0.0-0. 4 Not Available [facility] ([facility]) [address] [facility], [place], [address], 08/06/2024 07:17:22 08/06/19 25 08/06/2024 CBC WITH DIFFE RENTI AL/PL ATELE T baso (absolute) 0.1 x10e3 /uL 0.0-0. 2 Not Available [facility] ([facility]) [address] [facility], [place], [address], 08/06/2024 07:17:22 08/06/19 25 08/06/2024 CBC WITH DIFFE RENTI AL/PL ATELE T immature granulocytes 0 % notest ab. Not Available [facility] ([facility]) [address] [facility], [place], [address], 08/06/2024 07:17:22 08/06/19 25 08/06/2024 CBC WITH DIFFE RENTI AL/PL ATELE T immature grans (abs) 0.0 x10e3 /uL 0.0-0. 1 Not Available [facility] ([facility]) [address] [facility], [place], [address], 08/06/2024 07:17:22 02/24/20 24 02/24/2024 XR, chest , 1 view No observ ation record ed. [email or web address] [facility] [address] [facility] [address] [facility], [place], [address], 02/25/2024 15:09:53 04/24/20 24 04/24/2024 XR, finge r(s) No observ ation record ed. [address] [facility] [address], [place], [address], 05/01/2024 23:28:02 04/07/20 25 04/07/2025 imagi ng/di agnos tic resul t No observ ation record ed. [facility] [address] [facility] [address], [place], [address], 04/07/2025 12:52:43 Result Notes None recorded. 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 Medical Equipment None Reported. Allergies Allergen ID Allergen Name Allergen Category Reaction Reaction Severity Criticality Documentation Date Start Date Code Code System Note Provider Name and Address Organization Details Recorded Time 773526 Product containin g penicilli n (product) medicatio n fever hallucina tions Not available Not available Not available 10/16/2023 92697 [id number] SNOMED Cindy Fermin MA null, [place] - [facility] 4 10:44:25 Medications Name [...] Updated DateTime 5 167.64 cm 15.8 kg/m2 37247.3 3 g 75 /min 97 % 130/84 mm[Hg] Oriana Hoff MA [place] - [facility] 5 10:16:27 Date Recorded Body height Body mass index (BMI) Body weight Heart rate Oxygen saturation Systolic And Diastolic Provider Name and Address Organization Details Last Updated DateTime 5 167.64 cm 15.7 kg/m2 57952.1 8 g 71 /min 98 % 128/66 mm[Hg] Jing Borden MA [facility] 5 15:48:35 Date Recorded Body height Body mass index (BMI) Body weight Heart rate Oxygen saturation Systolic And Diastolic Provider Name and Address Organization Details Last Updated DateTime 4 167.64 cm 15.6 kg/m2 56629.0 2 g 90 /min 97 % 130/50 mm[Hg] Cindy Fermin MA [facility] 4 10:47:59 Date Recorded Body height Body mass index (BMI) Body weight Heart rate Oxygen saturation Systolic And Diastolic Provider Name and Address Organization Details Last Updated DateTime 5 167.64 cm 16.3 kg/m2 73983.7 5 g 65 /min 98 % 110/70 mm[Hg] Oriana Hoff MA [facility] 5 10:01:58 Social History Question Answer Notes LastModified by Organizat ion Details LastModified Time Tobacco Smoking Status Former Smoker Cindy Fermin MA null, [place] - [facility] 10/16/2023 10:45:52 Are You Blind Or Do [...] Influenza, split virus, quadrivalent, preservative 9 completed CHEMA Pedra[place], [place] - [facility] 07/13/2024 10:18:40 Influenza, adjuvanted, trivalent, PF 8 completed [place] [facility] 07/13/2024 10:18:40 Influenza, high-dose, quadrivalent, PF 0 [place] [facility] 07/13/2024 10:18:40 Influenza, high-dose, quadrivalent, PF 2 [place] [facility] 07/13/2024 10:18:40 Influenza, high-dose, quadrivalent, PF 1 [place] [facility] 07/13/2024 10:18:40 Influenza, adjuvanted, quadrivalent, PF 3 completed CHE[place] - [...] [facility] 07/13/2024 10:18:40 Pneumococcal conjugate PCV20, polysaccharide [id number] conjugate, adjuvant, PF 3 completed CHEMA Pedraza, [...] completed Oriana Hoff [place] [facility] 07/13/2024 10:18:40 Influenza, split virus, trivalent, PF 7 completed Oriana Hoff [place] [facility] 07/13/2024 10:18:40 Influenza, split virus, trivalent, PF 5 completed Oriana [place] [facility] 07/13/2024 10:18:40 Influenza, high-dose, trivalent, PF 4 completed Not Available [facility] 01[facility]11[facility]2025 09:53:36 Tdap 4 completed Not Available [facility] 01/11/2025 09:53:36 zoster recombinant 4 completed Not Available [facility] 01/11/2025 09:53:36 Past Encounters Encounter ID Performer Location Encounter Start Date Encounter Closed Date Diagnosis/Indication Diagnosis SNOMED-CT Code Diagnosis ICD10 Code Diagnosis IMO Codes Diagnosis Note [id number] Yoel Diallo MD [facility] (Adult Med) [address] [place] [address] 10/16/2023 10:38:01 10/16/2023 11:51:53 Chronic obstructive pulmonary disease 73913429 J44.9 Hyperlipidemia 75441794 E78.5 Long-term drug therapy 895080952 Z79.899 Peripheral arterial occlusive disease 486929919 I73.9 Polyp of colon 69571155 K63.5 Stricture of esophagus 30818961 K22.2 [id number] Yoel Diallo MD [facility] [address] [place] [address] 07/13/2024 09:55:31 07/13/2024 11:18:14 Body mass index less than 20 854784145 Z68.1 Underweight 780964285 R6 3.6 Hyperlipidemia 81001803 E78.5 Long-term drug therapy 562600590 Z79.899 Gastroesop hageal reflux disease without esophagitis 291339131 K21.9 Peripheral arterial occlusive disease 034904997 I73.9 Chronic ob structive pulmonary disease 50648739 J44.9 Stricture of esophagus 16114088 K22.2 Colon canc er screening declined 4641601862 9109 Z53.20 [id number] Yoel Diallo MD [facility] (Adult Med) [address] [place] [address] 08/05/2024 15:11:19 08/05/2024 16:13:45 Underweight 472792087 R63.6 15.7 Impacted c erumen in right ear 7713914663 503493 H61.21 [id number] Yoel Diallo MD [facility] Abundio P[facility]rez [address] [place] [address] 01/11/2025 09:51:48 01/11/2025 10:33:08 Decreased body mass index 9682937 Z68.4 9828037168 Underweight 463069764 R6 3.6 bmi 16.3 Hyperlipidemia 94697712 E78.5 Peripheral arterial occlusive disease 984128560 I73.9 Stricture of esophagus 92905625 K22.2 Chronic ob structive pulmonary disease 25969168 J44.9 Health Concerns Section Related Observation LastModified by Organization Detai ls LastModified Time None Recorded Concern Status LastModified by Organization Details LastModified Time None Recorded Advance Directives Directive None Recorded Payers Insurance Date Sequence Insurance Name Policy Number Policy Go Covered Member ID Go Member ID Guarantor Name 01/08/2025 [place] - [place] Amada Lemus [id number] Amada Lemus 01/08/2025 [employer] (MEDICARE SUPPLEMENT) Amada Lemus [id number] Amada Lemus 02/05/2025 2 [employer] (MEDICARE SUPPLEMENT) Amada Lemus [id number] Amada Lemus 01/08/2025 1 [place] Amada Lemus [id number] Amada Lemus 07/13/2024 1 [facility] (MEDICARE SUPPLEMENT) [id number] Amada Lemus [id number] Amada Lemus 07/13/2024 2 [facility] (MEDICARE REPLACEMENT PPO) [id number] Amada Lemus [id number] Amada Lemus 07/13/2024 3 [facility] (PPO) [id number] Amada Lucio Nonn [id number] Amada Jacobsone Nonn 07/13/2024 2 [facility] (PPO) [id number] Amada M Nonn [id number] Amada Jennifer Nonn 07/13/2024 2 [facility] (MEDICARE REPLACEMENT PPO) [id number] Amada M Nonn [id number] Amada Jennifer Nonn 07/13/2024 2 [facility] (PPO) [id number] Amada M Nonn [id number] Amada Rodriguez Nonn 07/13/2024 1 [facility] (PPO) [id number] Amada Lucio Nonn [id number] Amada Jennifer Nonn Notes Date Note Type Note Provider Name and Address Organization Details Recorded Time 10/16/2023 text/html follow up of her medical problems COPD dyslipidemia peripheral arterial occlusive disease colon polyps and stricture of esophagus Yoel Diallo MD Attn: [address]ing[address] [place], [address], [facility] 11/10/2023 19:05:01 07/13/2024 text/html COPD no cough or wheezing no shortness a breathperipheral arterial disease no claudication no lesions on feetstricture of the esophagus asymptomatic PPIhyperlipidemia does try to follow a low-fat diet does take rosuvastatin Yoel Diallo MD Attn: [employer]ing[address] [facility], [place], [address], [facility] 07/13/2024 13:56:32 08/05/2024 text/html muffled hearing right ear painful Yoel Diallo MD Attn: Accounting[address] [facility], [place], [address], [facility] - [facility] 08/08/2024 11:07:59 01/11/2025 text/html COPD no cough wheezing or shortness of breath dyslipidemia taking his rosuvastatin GERD has been fine no signs or symptoms of recurrence of her esophageal stricture peripheral arterial occlusive disease does not smoke anymore no clear-cut claudication Yoel Diallo MD Attn: Accounting[address] [facility], [place], [address], [facility] - [facility] 01/11/2025 22:59:08 OBGyn Episode No OBEpisode recorded.
--- OUTSIDE RECORDS SUMMARY | 2025-04-07 12:08 | XMS_ITS | Clinical Summary ---
Author Organization [facility] Address [address] [place] [address] Care Team Providers Care Cook Apprentice Name Role Phone Unavailable Primary Care Provider [...] 75+ series) 12/20/2023 COVID-19 Vaccine ( - 2024-2 6 season) 2025 Influenza Adult (#1) 2025 Hepatitis A Vaccines Aged Out No long er eligible based on patient's age to complete this topic Meningococcal B Vaccine Aged Out No l onger eligible based on patient's age to complete this topic Meningococcal Vaccine Aged Out No panfilo romeo eligible based on patient's age to complete this topic RSV Immunizations Under 20 Months Aged Out No longer eligible based on patient's age to complete this topic
--- OUTSIDE RECORDS SUMMARY | 2025-04-07 12:49 | XMS_ITS | Clinical Summary ---
Author Organization [facility] Address [address] [place] [address] Care Team Providers Care Construction Project Coordinator Name Role Phone Unavailable Primary Care Provider [...]
== END 2025-04-07 12:34 | disposition home or self-care (01) ==
PROVIDERS: Emergency Provider Nurse Practitioner Family; PCP Internal Medicine
DX: M54.41 Lumbago with sciatica, right side (principal); J44.9 Chronic obstructive pulmonary disease, unspecified; I73.9 Peripheral vascular disease, unspecified; E78.5 Hyperlipidemia, unspecified; Z86.0101 Personal history of adenomatous and serrated colon polyps; Z87.891 Personal history of nicotine dependence; Z79.899 Other long term (current) drug therapy
CPT/HCPCS: 72131; 99284